=== PATIENT | female | born 1940 | race Caucasian/White ===

== ENCOUNTER 2023-06-29 15:59 | Inpatient (IN) | payer OTHER, SELFPAY ==
[2023-06-29 16:47] VITALS: BP 123/69; PULSE 93; RESP 18; TEMP 37; O2SAT 90; BMI 18.8
[2023-06-29 17:37] VITALS: O2SAT 84
[2023-06-29 17:41] LABS: PCR FLU A POSITIVE PCR FLU A (Negative); PCR FLU B Negative PCR FLU B (Negative); PCR RSV Negative PCR RSV (Negative)
[2023-06-29 17:45] VITALS: O2SAT 95
--- NOTE | 2023-06-29 17:45 | CRLHL7_ITS ---
For Patients: As a result of the Cures Act, medical imaging exams and procedure reports are released immediately into your electronic medical record. You may view this report before your referring provider. If you have questions, please contact your health care provider. INDICATION: Shortness of breath TECHNIQUE: Chest 2 views. COMPARISON: None FINDINGS: The heart is normal in size. The pulmonary vasculature is within normal limits. Patchy opacity in the right lung base, suggestive of pneumonia in the appropriate clinical setting. Remainder of the lungs clear. Bones are unremarkable. IMPRESSION: Patchy right lower lobe consolidation, suggestive of pneumonia. Recommend follow-up after treatment to ensure resolution. Dictated by Marlyn Norton MD @ 06/29/2023 6:43:50 PM Dictated by: Marlyn Norton MD @ 06/29/2023 18:43:59 (Electronically Signed)
--- NOTE | 2023-06-29 17:52 | ED.GENADULT ---
HPI - General Adult General Chief complaint: Nausea/Vomiting Stated complaint: nausea Time Seen by Provider: 06/29/23 17:09 Source: patient Mode of arrival: ambulatory Limitations: no limitations History of Present Illness HPI narrative: 83-year-old female coming in today complaining about not feeling well for 1 week. Patient states that she has had a cough, weakness, nausea, diarrhea for 1 week. Denies any vomiting but has had no oral intake of food for the last week secondary to the nausea. States that she has been drinking water and that has been okay. States that she has several episodes of diarrhea per day but cannot be more specific than that. Denies any blood in her stool. Denies abdominal or chest pain. Cough is productive. No fevers that she is aware of. She does feel short of breath. Past medical history is significant for hypertension, history of PE, hyperlipidemia, hiatal hernia, osteopenia, mild persistent asthma, stage 3 chronic kidney disease, history of pleural empyema. Past surgical history includes a total abdominal hysterectomy and oophorectomy, a right VATS and lung decortication in 2018. She does not use oxygen at home. Current medications include albuterol nebs, Ventolin inhaler, Fosamax, Symbicort, calcium, chlorthalidone, estradiol, daily iron, Toprol XL, Singulair, Xarelto. Related Data Home Medications Medication Instructions Recorded Confirmed alendronate 70 mg tablet 70 mg PO 06/29/23 chlorthalidone 25 mg tablet 25 mg PO DAILY 06/29/23 06/29/23 montelukast 10 mg tablet 10 mg PO DAILY 06/29/23 06/29/23 Allergies Allergy/AdvReac Type Severity Reaction Status Date / Time No Known Drug Allergies Allergy Verified 06/29/23 16:51 Review of Systems Status of ROS: Reports: 10 or more systems reviewed and unremarkable except as noted in History and below [facility] Social History Non-prescribed substance use: denies use Exam Narrative: Exam Narrative: Thin, elderlypatient in no acute distress. Alert and oriented x3. Answers questions appropriately but slowly. patient appears quite tired.Mood and affect are appropriate. Thoughts are goal oriented and rational. No tangential or magical thinking noted. Patient speaks in full sentences without needing to catch Her breath. she is not tachypneic, however she is hypoxic. Oxygen saturation does go up into the low to mid 90s on 2 L nasal cannula. HEENT: Normocephalic atraumatic. Pupils are equally round reactive to light. Extraocular muscles are intact. Conjunctivae are moist without any icterus noted. Slightly dry mucous membranes. Posterior pharynx is normal. Neck is soft without any lymphadenopathy or thyromegaly. No masses are appreciated. Cardiovascular: Heart is regular rate and rhythm S1 and S2 are present without any murmurs. Lungs: bilateral crackles and rales. No wheezing is appreciated. Abdomen: Soft and nontender nondistended with normal bowel sounds. Extremities: Bilateral lower extremities are without edema. Normal DP and PT pulses. Skin: Well perfused without any obvious rashes. Const: Vital Signs, click to edit/add: Vital Signs - 24 hr 06/29/23 16:47 06/29/23 17:37 06/29/23 17:45 Temperature 98.6 F Pulse Rate [Pulse Oximeter] 93 Respiratory Rate 18 Blood Pressure [Ri ght Upper Arm] 123/69 Pulse Oximetry 90 84 L 95 Oxygen Delivery Me thod Room Air Room Air Oxygen Flow Rate 06/29/23 19:12 06/29/23 19:12 Temperature Pulse Rate [Pulse Oximeter] 90 Respiratory Rate 20 Blood Pressure [Ri ght Upper Arm] 148/96 H Pulse Oximetry 96 96 Oxygen Delivery Me thod Nasal Cannula Oxygen Flow Rate 2 Course Course ED Course: Patient was placed on oxygen. IV was established and fluids started: 1 L of normal saline was ordered. EKG, read by me, shows normal sinus rhythm with a pulse of 86. Is not a great quality EKG. Lab work shows hyponatremia, elevated BUN and creatinine. I do not have a baseline for these labs. Patient is positive for influenza A. Chest x-ray is noted to have a right-sided consolidation. However, patient does have a history of empyema and it is difficult to tell if this is scarring or new. Vital Signs Vital signs: Initial Vital Signs Temperature 98.6 F 06/29/23 16:47 Temperature Source Temporal Artery Scan 06/29/23 16:47 Pulse Rate 93 06/29/23 16:47 Respiratory Rate 18 06/29/23 16:47 Blood Pressure 123/69 06/29/23 16:47 Blood Pressure Mean 87 06/29/23 16:47 Pulse Oximetry 90 06/29/23 16:47 Oxygen Delivery Method Room Air 06/29/23 16:47 Vital Signs Temperature 98.6 F 06/29/23 16:47 Pulse Rate 93 06/29/23 16:47 Respiratory Rate 18 06/29/23 16:47 Blood Pressure 123/69 06/29/23 16:47 Pulse Oximetry 90 06/29/23 16:47 Oxygen Delivery Method Room Air 06/29/23 16:47 Temperature 98.6 F 06/29/23 16:47 Pulse Rate 90 06/29/23 19:12 Respiratory Rate 20 06/29/23 19:12 Blood Pressure 148/96 H 06/29/23 19:12 Pulse Oximetry 96 06/29/23 19:12 Oxygen Delivery Method Nasal Cannula 06/29/23 19:12 Oxygen Flow Rate 2 06/29/23 19:12 Medications Administered Medications: Discontinued Medications Generic Name Dose Route Start Last Admin Trade Name Freq PRN Reason Stop Dose Admin Sodium Chloride 1,000 mls @ 1,000 mls/hr 06/29/23 17:45 06/29/23 18:31 0.9 % Sodium Chloride 1000 Ml IV 06/29/23 18:44 1,000 mls/hr .Q1H PRIYA Administration Ondansetron HCl 4 mg 06/29/23 17:45 06/29/23 18:31 Ondansetron 2 Mg/Ml Inj IVP 06/29/23 17:46 4 mg ONCE ONE Administration Medical Decision Making MDM Narrative Medical decision making narrative: 83-year-old female with influenza a, hypoxia, hyponatremia, renal failure. At this time, patient will be admitted for further management. Medical Records Medical records reviewed: Yes I reviewed the patient's medical records Lab Data Lab results reviewed: Yes I reviewed the patient's lab results Labs: Lab Results 06/29/23 06/29/23 Range/Units 16:52 18:20 WBC 9.07 (4.50-11.00) K/uL RBC 4.28 (4.00-5.20) m/uL Hgb 13.2 (12.0-16.0) gm/dL Hct 41.2 (33.0-51.0) % MCV 96 (80-100) fL MCH 31 (26-34) pg MCHC 32 (32-36) gm/dL RDW Coeff of Leonardo 12.6 (11.5-15.5) % Plt Count 214 (140-440) K/uL Neut % (Auto) 84.4 H (42.0-72.0) % Lymph % (Auto) 4.6 L (20-44) % [place] % (Auto) 10.8 (0.0-11.0) % Eos % (Auto) 0.0 (0.0-7.0) % Baso % (Auto) 0.0 (0.0-3.0) % Neut # (Auto) 7.70 H (1.7-7.0) K/uL Lymph # (Auto) 0.40 L (0.90-2.90) K/uL [place] # (Auto) 1.00 H (0.00-0.90) K/UL Eos # (Auto) 0.00 (0.00-0.50) K/uL Baso # (Auto) 0.00 (0.00-0.30) K/uL Abs Immat Gran (auto) 0.02 (0.00-0.30) K/uL Imm/Tot Granulo (auto) 0.2 % Sodium 130 L (135-149) mmol/L Potassium 3.6 (3.6-5.1) mmol/L Chloride 91 L (96-114) mmol/L Carbon Dioxide 22 (20-32) mmol/L Anion Gap 17 H (7-15) mEq/L BUN 39 H (7-30) mg/dL Creatinine 1.6 H (0.5-1.5) mg/dL Estimated Creat Clear 22.89 Estimated GFR 32 ml/min Glucose 147 H (60-115) mg/dL Lactate 1.8 (0.5-1.9) mmol/L Calcium 7.9 L (8.4-10.6) mg/dL Total Bilirubin 0.4 (0.1-1.5) mg/dL Direct Bilirubin 0.3 (0.0-0.5) mg/dL AST 48 H (12-35) U/L ALT 20 (4-35) U/L Alkaline Phosphatase 59 (40-150) U/L Troponin I 0.05 H (0.01-0.04) ng/mL C-Reactive Protein 19.7 H (0.5-1.0) mg/dL Total Protein 7.8 (6.0-8.3) g/dL Albumin 4.2 (3.3-5.0) g/dL SARS-CoV-2 (PCR) Negative SARS-CoV-2 (Negative) Influenza Type A (PCR) POSITIVE PCR FLU A A (Negative) Influenza Type B (PCR) Negative PCR FLU B (Negative) RSV (PCR) Negative PCR RSV (Negative) POC Troponin I 0.04 (0.01-0.04) ng/ml Imaging Data Chest x-ray: Attestation: I have reviewed the pertinent imaging results. Radiologist's impression: Chest 2 views. COMPARISON: None FINDINGS: The heart is normal in size. The pulmonary vasculature is within normal limits. Patchy opacity in the right lung base, suggestive of pneumonia in the appropriate clinical setting. Remainder of the lungs clear. Bones are unremarkable. IMPRESSION: Patchy right lower lobe consolidation, suggestive of pneumonia. Recommend follow-up after treatment to ensure resolution. ECG Data Attestation: I personally reviewed and interpreted this ECG as follows: Discharge Plan Discharge Clinical Impression: Influenza A, Hyponatremia, Hypoxia Patient Disposition: Admitted As Observation Condition: Stable
[2023-06-29 17:58] LABS: SARS PCR* Negative SARS-CoV-2 (Negative)
[2023-06-29 18:26] LABS: Lactate* 1.8 mmol/L (0.5-1.9)
[2023-06-29 18:27] LABS: Hematocrit 41.2 % (33.0-51.0); Hemoglobin* 13.2 gm/dL (12.0-16.0); Immature Granulocytes Abs Auto 0.02 K/uL (0.00-0.30); Immature Granulocytes Pct Auto 0.2 %; Lymphocytes Percent Auto 4.6 % (20-44); Mean Corpuscular HGB Conc 32 gm/dL (32-36); Mean Corpuscular Hemoglobin 31 pg (26-34); Mean Corpuscular Volume 96 fL (80-100); Monocytes Percent Auto 10.8 % (0.0-11.0); Neutrophils Percent Auto 84.4 % (42.0-72.0); Platelet Count* 214 K/uL (140-440); RDW Coefficient of Variation % 12.6 % (11.5-15.5); Red Blood Count 4.28 m/uL (4.00-5.20); White Blood Count* 9.07 K/uL (4.50-11.00)
[2023-06-29 18:28] LABS: Slide Review Reflex No
[2023-06-29] MEDS: 0.9 % SODIUM CHLORIDE 1000 ml 1,000 ML IV (18:31)
[2023-06-29] MEDS: ONDANSETRON 2 MG/ML inj 4 MG IVP (18:31)
[2023-06-29 18:32] LABS: Troponin, Point-of-Care* 0.04 ng/ml (0.01-0.04)
--- OUTSIDE RECORDS SUMMARY | 2023-06-29 18:37 | XMS_ITS | Continuity of Care Document ---
Author Name Unknown Organization [facility] Address [address] [place] [address] Phone Care Team Providers Care Contract Coordinator Name Role Phone Dinah Euceda Unavailable Unavailable Allergies, Adverse Reactions, Alerts Substance Reaction Status Criticality oxycodone Active No Information Procedures Procedure Date Office/Outpatient Visit,[facility], [facility] 2021 Advance Directives Directive Yes / No Effective Date File Name No Information Encounters Encounter Description Practice Location Reason(s) For Visit Diagnoses Date Provider Providers Copied on Encounter Office/Outpati ent Visit,[place], [facility] , [address], [place], [place], [id number], [place] tel:[phone] [facility] Other spondylosis , lumbar region Zuly Nix. [facility], [address] [place] [address] [address], [place], [address], [place]. tel:[phone] Referring Provider: Dinah Garcia, [employer] [facility] [address], [place], [address]. tel:[phone] Family History Family Member Type Diagnosis Age At Onset No Information Payers Payer name Insurance type Covered republican ID Mainor vaughan(s) [employer]age [id number] Social History Type Description Quantity Date Captured Comments Alcohol Use Details Unknown Caffeine Use Details Unknown Tobacco Use Status Current non-smoker Smoking Status Never smoker Non-Smoking Tobacco Use Details : No Details Available : No Details Available Sex Female Vital Signs Date / Time: Height Weight BMI Pulse Rate Blood Pressure Temperature Respiratory Rate Body Surface Area Head Circumference Head Circ. Percentile Wt./Jeramy. Percentile BMI percentile Pulse Ox Inhaled Ox 11:15 AM 64.00 in 55.338 kg (122.00 lbs) 20.9 4 kg/m eter (2) Chief Complaint And Reason For Visit No Information Reason For Referral Reason For Referral No Information History Of Present Illness Encounter Date Complaint History Of Prese nt Illness No Information Functional Status Date Functional Assessmen t No Information Instructions Date Instruction Additional Infor mation No Information Assessments Type Assessment Date assessment Other spondylosis, lumbar region Patient Care Teams Name Effective Dates (start - stop) Status Members No Information
--- OUTSIDE RECORDS SUMMARY | 2023-06-29 18:37 | XMS_ITS | Continuity of Care Document ---
Author Name Unknown Organization [facility] Address [address] [place] [address] Phone Care Team Providers Care Autocad Designer Name Role Phone Dinah Euceda Unavailable Unavailable Allergies, Adverse Reactions, Alerts Substance Reaction Status Criticality oxycodone Active No Information Procedures Procedure Date Office/Outpatient Visit,[facility], [facility] 2021 Advance Directives Directive Yes / No Effective Date File Name No Information Encounters Encounter Description Practice Location Reason(s) For Visit Diagnoses Date Provider Providers Copied on Encounter Office/Outpati ent Visit,[place], [place] [facility] , [address], [place], [place], [id number], [place] tel:[phone] [facility] Other spondylosis , lumbar region Zuly Nix. [facility], [address] [place] [address] [address], [place], [address], [place]. tel:[phone] Referring Provider: Dinah Garcia, [employer] [facility] [address], [place], [address]. tel:[phone] Family History Family Member Type Diagnosis Age At Onset No Information Payers Payer name Insurance type Covered republican ID Mainor vaughan(s) [employer] Advantage [id number] Social History Type Description Quantity Date Captured [...]
[2023-06-29 18:47] LABS: Albumin* 4.2 g/dL (3.3-5.0); Chloride* 91 mmol/L (96-114); Sodium* 130 mmol/L (135-149)
[2023-06-29 18:48] LABS: Potassium* 3.6 mmol/L (3.6-5.1)
[2023-06-29 18:50] LABS: Alkaline Phosphatase* 59 U/L (40-150); Anion Gap 17 mEq/L (7-15); Aspartate Amino Transferase* 48 U/L (12-35); Bilirubin Direct* 0.3 mg/dL (0.0-0.5); Bilirubin Total* 0.4 mg/dL (0.1-1.5); Carbon Dioxide* 22 mmol/L (20-32); Creatinine* 1.6 mg/dL (0.5-1.5); Est. Creatinine Clearance* 22.89; Estimated Glomerular Filt Rate 32 ml/min
[2023-06-29 18:51] LABS: Alanine Aminotransferase* 20 U/L (4-35); Blood Urea Nitrogen* 39 mg/dL (7-30); Calcium* 7.9 mg/dL (8.4-10.6); Glucose* 147 mg/dL (60-115); Total Protein* 7.8 g/dL (6.0-8.3)
[2023-06-29 19:02] LABS: Troponin I* 0.05 ng/mL (0.01-0.04)
[2023-06-29 19:05] LABS: C Reactive Protein* 19.7 mg/dL (0.5-1.0)
[2023-06-29 19:12] VITALS: BP 148/96; PULSE 90; RESP 20; O2SAT 96
[2023-06-29] MEDS: OSELTAMIVIR PHOSPHATE 75 MG CAPSULE PO (19:15)
--- NOTE | 2023-06-29 19:35 | PC.NURSE ---
[facility]
--- NOTE | 2023-06-29 19:48 | PC.NURSE ---
patient brought to medsurg room 260 by house sup, all belongings sent with patient
--- NOTE | 2023-06-29 21:23 | P.IMHP_ITS ---
Hospitalist- H&P: HPI History of Present Illness Date Seen: 06/29/23 Chief complaint: nausea Narrative: Charleen Marquez is a 83 year old woman ordinarily in good health. For the past week she has had dry hacky cough, weakness, nausea without vomiting, intermittent diarrhea. Has had little oral solid intake. Has been drinking a fair amount of water to try to maintain her hydration. Denies fevers, rigors, diaphoresis. Has been more short of breath. Denies chest heaviness, pressure, tightness, or pain. Ordinarily does not use oxygen supplementation at home. No syncope or near syncope. No loss of consciousness. Acknowledges a sense of orthostasis at times. Review of Systems Status of ROS: Reports: 10 or more systems reviewed and unremarkable except as noted in History and below Narrative: Takes her medications as prescribed. Designates her , Bin, as her power of compliance attorney for health should that be required. Requests DNR DNI resuscitation status. She tells me that she knows her does not agree with this but this is her decision. I tell her she can change her mind any time. She remains resolute. She understands my asking her this question is purely hypothetical, because she is in the hospital at this time. [facility] Medical History Dehiscence of appendectomy wound ?T81.31XA - Disruption of external operation (surgical) wound, not elsewhere classified, initial encounter (ICD-10) Hiatal hernia ?K44.9 - Diaphragmatic hernia without obstruction or gangrene (ICD-10) Bronchiectasis without complication ?J47.9 - Bronchiectasis, uncomplicated (ICD-10) Chronic kidney disease, stage 3b ?N18.32 - Chronic kidney disease, stage 3b (ICD-10) Single subsegmental pulmonary embolism without acute cor pulmonale ?I26.93 - Single subsegmental pulmonary embolism without acute cor pulmonale (ICD-10) History of pleural empyema ?Z87.09 - Personal history of other diseases of the respiratory system (ICD- 10) Mild persistent asthma without complication ?J45.30 - Mild persistent asthma, uncomplicated (ICD-10) Hyperlipidemia ?E78.5 - Hyperlipidemia, unspecified (ICD-10) Hypertension ?I10 - Essential (primary) hypertension (ICD-10) Surgical History History of left oophorectomy ?Z90.721 - Acquired absence of ovaries, unilateral (ICD-10) S/P total abdominal hysterectomy ?Z90.710 - Acquired absence of both cervix and uterus (ICD-10) History of right oophorectomy ?Z90.721 - Acquired absence of ovaries, unilateral (ICD-10) History of esophagogastroduodenoscopy ?Z98.890 - Other specified postprocedural states (ICD-10) Family History Maternal Grandmother Heart disease Mother Heart disease Social History Non-prescribed substance use: denies use Meds Home Medications and Allergies Home Medications Medication Instructions Recorded Confirmed Type alendronate 70 mg tablet 70 mg PO 06/29/23 History chlorthalidone 25 mg tablet 25 mg PO DAILY 06/29/23 06/29/23 History montelukast 10 mg tablet 10 mg PO DAILY 06/29/23 06/29/23 History Allergies Allergy/AdvReac Type Severity Reaction Status Date / Time No Known Drug Allergies Allergy Verified 06/29/23 16:51 Exam Narrative: Exam Narrative: Examined patient in her hospital room. Appears comfortable. Intermittent dry hacky cough, nonproductive. Vision and hearing are grossly normal. Alert, oriented to self, place, time, situation. From the, articulate, cooperative. Has obvious laryngitis affecting her voice. Tympanic membranes normal. Midline nasal septum. Dry buccal mucosa. Dentition in fair repair. Midline trachea. Supple neck. No head or neck lymphadenopathy. Lungs are clear without wheezing, rhonchi, or rales. Heart tones with regular rhythm, normal S1-S2. Abdomen is thin with active bowel sounds, soft, nontender. Extremities without edema. Moves all 4 extremities. Cranial nerves 3-12 grossly normal. Skin is warm, dry, intact. Const: Vital Signs, click to edit/add: Vital Signs - 24 hr 06/29/23 16:47 06/29/23 17:37 06/29/23 17:45 Temperature 98.6 F Pulse Rate [Pulse Oximeter] 93 Respiratory Rate 18 Blood Pressure [Ri ght Upper Arm] 123/69 Pulse Oximetry 90 84 L 95 Oxygen Delivery Me thod Room Air Room Air Oxygen Flow Rate 06/29/23 19:12 06/29/23 19:12 Temperature Pulse Rate [Pulse Oximeter] 90 Respiratory Rate 20 Blood Pressure [Ri ght Upper Arm] 148/96 H Pulse Oximetry 96 96 Oxygen Delivery Me thod Nasal Cannula Oxygen Flow Rate 2 Documenting provider has reviewed patient's vital signs: yes Hospitalist - H&P: Result Labs Labs: Short CBC 06/29/23 Range/Units 18:20 WBC 9.07 (4.50-11.00) K/uL Hgb 13.2 (12.0-16.0) gm/dL Hct 41.2 (33.0-51.0) % Plt Count 214 (140-440) K/uL BMP 06/29/23 18:20 Sodium 130 L Potassium 3.6 Chloride 91 L Carbon Dioxide 22 BUN 39 H Creatinine 1.6 H Glucose 147 H Calcium 7.9 L Cardiac Enzymes 06/29/23 Range/Units 18:20 Troponin I 0.05 H (0.01-0.04) ng/mL Liver Function 06/29/23 Range/Units 18:20 Total Bilirubin 0.4 (0.1-1.5) mg/dL Direct Bilirubin 0.3 (0.0-0.5) mg/dL AST 48 H (12-35) U/L ALT 20 (4-35) U/L Alkaline Phosphatase 59 (40-150) U/L Albumin 4.2 (3.3-5.0) g/dL ECG Attestation: I personally reviewed and interpreted this ECG as follows: ECG interpretation date: 06/29/23 Interpretation: Normal sinus rhythm. Artifact noted. Imaging Chest x-ray: Attestation: I have reviewed the pertinent imaging results. Radiologist's impression: IMPRESSION: Patchy right lower lobe consolidation, suggestive of pneumonia. Recommend follow-up after treatment to ensure resolution. Assessment and Plan Assessment and plan (1) Influenza A: Problem comment: -oseltamivir dosed for decreased renal function Status: Acute (2) Hyponatremia: Problem comment: -2000 mL fluid restriction Status: Acute (3) Hypoxia: Problem comment: -oxygen supplementation Status: Acute (4) Dehydration: Problem comment: -IV fluid rehydration Status: Acute (5) Acute kidney injury: Problem comment: -suspect from dehydration, monitor labs Status: Acute Plan 1. Reviewed impression with patient 2. Answered her questions 3. Treatment as specified above 4. Continue with supportive efforts 5. Patient agreeable with above stated plans and recommendations
[2023-06-29 21:50] LABS: Troponin I* 0.05 ng/mL (0.01-0.04)
[2023-06-29 23:00] VITALS: RESP 20; O2SAT 96
[2023-06-29 23:12] VITALS: BP 148/62; PULSE 79; RESP 20; TEMP 36.8; O2SAT 93; BMI 18.1
[2023-06-29] MEDS: SODIUM CHLORIDE 0.9 % (FLUSH) 10 ML SYRINGE 5 ML IVF (23:42)
[2023-06-30] VITALS (7 sets, daily range): BP systolic 107–148; BP diastolic 62–70; PULSE 67–80; RESP 16–18; TEMP 36.4–37.9; O2SAT 90–96
[2023-06-30] MEDS: ACETAMINOPHEN 325 MG TABLET 650 MG PO ×4 (01:02→22:07)
[2023-06-30 07:07] LABS: Hemoglobin* 12.8 gm/dL (12.0-16.0); Mean Corpuscular HGB Conc 32 gm/dL (32-36); Mean Corpuscular Hemoglobin 31 pg (26-34); Mean Corpuscular Volume 96 fL (80-100); Platelet Count* 198 K/uL (140-440); Red Blood Count 4.15 m/uL (4.00-5.20); White Blood Count* 6.97 K/uL (4.50-11.00)
[2023-06-30 07:19] LABS: HCO3 VBG 30 mmol/L (21-28); PCO2 VBG 50 mmHG (40-50); PO2 VBG 29.7 mmHG (25-47); pH VBG 7.383 (7.32-7.43)
[2023-06-30 07:27] LABS: Slide Review Reflex No
[2023-06-30 07:51] LABS: Chloride* 95 mmol/L (96-114); Potassium* 3.7 mmol/L (3.6-5.1); Sodium* 132 mmol/L (135-149)
[2023-06-30 07:54] LABS: Anion Gap 10 mEq/L (7-15); Carbon Dioxide* 27 mmol/L (20-32); Creatinine* 1.3 mg/dL (0.5-1.5); Est. Creatinine Clearance* 27.14; Estimated Glomerular Filt Rate 41 ml/min
[2023-06-30 07:55] LABS: Blood Urea Nitrogen* 39 mg/dL (7-30); Calcium* 7.5 mg/dL (8.4-10.6); Glucose* 91 mg/dL (60-115); Magnesium* 1.9 mg/dL (1.5-2.6); Phosphorus* 2.8 mg/dL (2.5-4.5)
[2023-06-30 08:06] LABS: Troponin I* 0.04 ng/mL (0.01-0.04)
[2023-06-30 08:08] LABS: C Reactive Protein* 19.4 mg/dL (0.5-1.0); NT Pro B Type NatriureticPept* 1360 pg/mL
--- NOTE | 2023-06-30 08:09 | PC.NURSE ---
Pt alert and oriented x3. Afebrile. Pt reports 5/10 headache pain, managed with PRN medications. Pt has continuous moist non-productive cough. Pt is on 1L oxygen via nasal cannula to maintain stats of 90%. Pt is up A1/SBA to bathroom. Pt slept throughout most of night.
[2023-06-30] MEDS: MONTELUKAST 10 MG TABLET PO (09:41)
[2023-06-30] MEDS: OSELTAMIVIR 30 MG CAPSULE PO (09:41)
[2023-06-30] MEDS: SODIUM CHLORIDE 0.9 % (FLUSH) 10 ML SYRINGE 5 ML IVF ×2 (09:42→22:01)
[2023-06-30] MEDS: LIDOCAINE 5% PATCH 1 PATCH TRANSDERMA (11:34)
[2023-06-30] MEDS: hydrOXYzine pamoate 25 MG CAPSULE PO ×2 (12:50→22:04)
--- NOTE | 2023-06-30 14:48 | P.IMPN_ITS ---
Progress Note: A&P Assessment and plan (1) Influenza A: Problem details: -oseltamivir dosed for decreased renal function -schedule Tylenol for aches and pains, lidocaine patch for right hip pain, Vistaril p.r.n., ice and/or heat p.r.n. Status: Acute (2) Hyponatremia: Problem details: -slowly improving, 132 -2000 mL fluid restriction Status: Acute (3) Hypoxia: Problem details: -oxygen supplementation as needed, continue to wean as able Status: Acute (4) Dehydration: Problem details: -IV fluid rehydration. Continue until improved oral intake Status: Acute (5) Acute kidney injury: Problem details: -suspect from dehydration -improving, 1.3, down from 1.6, continue to monitor Status: Acute Time Spent With Patient Total time spent: Total time spent caring for the patient today was 45 minutes. This includes time spent for the visit reviewing the chart, time spent during the visit, time spent after the visit and documentation and planning in coordination of care. Subjective Date Seen: 06/30/23 Interval history: Patient is very uncomfortable this morning, achy all over, right hip most significantly sore. In general, malaise. Continues with fevers. Poor appetite. Was not vaccinated. Exam Narrative: Exam Narrative: PHYSICAL EXAM General: Patient moaning, rubbing right hip, quite anxious Cardiovascular: RRR, S1S2. No pitting edema Pulmonary: CTA bilaterally without rhonchi, rales, expiratory wheezes. No dyspnea on nasal cannula Neurological: Alert, anxious, answering questions appropriately Extremities: No gross joint deformity or swelling. AROMI. Neurovascularly intact Skin: Warm, dry. Const: Vital Signs, click to edit/add: Vital Signs - 24 hr 06/29/23 16:47 06/29/23 17:37 06/29/23 17:45 Temperature 98.6 F Pulse Rate [Pulse Oximeter] 93 Respiratory Rate 18 Blood Pressure [Ri ght Arm] Blood Pressure [Ri ght Upper Arm] 123/69 Pulse Oximetry 90 84 L 95 Oxygen Delivery Me thod Room Air Room Air Oxygen Flow Rate 06/29/23 19:12 06/29/23 19:12 06/29/23 23:00 Temperature Pulse Rate [Pulse Oximeter] 90 Respiratory Rate 20 20 Blood Pressure [Ri ght Arm] Blood Pressure [Ri ght Upper Arm] 148/96 H Pulse Oximetry 96 96 96 Oxygen Delivery Me thod Nasal Cannula Nasal Cannula Oxygen Flow Rate 2 2 06/29/23 23:12 06/29/23 23:12 06/30/23 00:25 Temperature 98.3 F 98.6 F Pulse Rate [Pulse Oximeter] 79 72 Respiratory Rate 20 20 18 Blood Pressure [Ri ght Arm] 148/62 H 107/62 Blood Pressure [Ri ght Upper Arm] Pulse Oximetry 93 93 93 Oxygen Delivery Me thod Nasal Cannula Nasal Cannula Nasal Cannula Oxygen Flow Rate 2 1 1 06/30/23 03:40 06/30/23 07:00 06/30/23 07:00 Temperature 97.6 F Pulse Rate [Pulse Oximeter] 71 78 Respiratory Rate 18 18 18 Blood Pressure [Ri ght Arm] 121/65 Blood Pressure [Ri ght Upper Arm] Pulse Oximetry 92 90 Oxygen Delivery Me thod Nasal Cannula Nasal Cannula Oxygen Flow Rate 1 2 06/30/23 07:00 06/30/23 09:41 06/30/23 11:00 Temperature 100.2 F H 100.2 F H 98.5 F Pulse Rate [Pulse Oximeter] 78 72 Respiratory Rate 18 18 Blood Pressure [Ri ght Arm] 145/65 H 132/63 Blood Pressure [Ri ght Upper Arm] Pulse Oximetry 90 94 Oxygen Delivery Me thod Nasal Cannula Nasal Cannula Oxygen Flow Rate 2 2 Labs Labs: Laboratory Results - last 24 hr 06/29/23 06/29/23 06/29/23 16:52 18:20 21:16 WBC 9.07 RBC 4.28 Hgb 13.2 Hct 41.2 MCV 96 MCH 31 MCHC 32 RDW Coeff of Leonardo 12.6 Plt Count 214 Neut % (Auto) 84.4 H Lymph % (Auto) 4.6 L [place] % (Auto) 10.8 Eos % (Auto) 0.0 Baso % (Auto) 0.0 Neut # (Auto) 7.70 H Lymph # (Auto) 0.40 L [place] # (Auto) 1.00 H Eos # (Auto) 0.00 Baso # (Auto) 0.00 Abs Immat Gran (auto) 0.02 Imm/Tot Granulo (auto) 0.2 VBG pH VBG pCO2 VBG pO2 VBG HCO3 Sodium 130 L Potassium 3.6 Chloride 91 L Carbon Dioxide 22 Anion Gap 17 H BUN 39 H Creatinine 1.6 H Estimated Creat Clear 22.89 Estimated GFR 32 Glucose 147 H Lactate 1.8 Calcium 7.9 L Phosphorus Magnesium Total Bilirubin 0.4 Direct Bilirubin 0.3 AST 48 H ALT 20 Alkaline Phosphatase 59 Troponin I 0.05 H 0.05 H C-Reactive Protein 19.7 H NT-Pro-B Natriuret Pep Total Protein 7.8 Albumin 4.2 SARS-CoV-2 (PCR) Negative SARS-CoV-2 Influenza Type A (PCR) POSITIVE PCR FLU A A Influenza Type B (PCR) Negative PCR FLU B RSV (PCR) Negative PCR RSV POC Troponin I 0.04 06/30/23 06:33 WBC 6.97 RBC 4.15 Hgb 12.8 Hct 40.0 MCV 96 MCH 31 MCHC 32 RDW Coeff of Leonardo Plt Count 198 Neut % (Auto) Lymph % (Auto) [place] % (Auto) Eos % (Auto) Baso % (Auto) Neut # (Auto) Lymph # (Auto) [place] # (Auto) Eos # (Auto) Baso # (Auto) Abs Immat Gran (auto) Imm/Tot Granulo (auto) VBG pH 7.383 VBG pCO2 50 VBG pO2 29.7 VBG HCO3 30 H Sodium 132 L Potassium 3.7 Chloride 95 L Carbon Dioxide 27 Anion Gap 10 BUN 39 H Creatinine 1.3 Estimated Creat Clear 27.14 Estimated GFR 41 Glucose 91 Lactate 1.0 Calcium 7.5 L Phosphorus 2.8 Magnesium 1.9 Total Bilirubin Direct Bilirubin AST ALT Alkaline Phosphatase Troponin I 0.04 C-Reactive Protein 19.4 H NT-Pro-B Natriuret Pep 1360 Total Protein Albumin SARS-CoV-2 (PCR) Influenza Type A (PCR) Influenza Type B (PCR) RSV (PCR) POC Troponin I
--- NOTE | 2023-06-30 15:01 | CRLHL7_ITS ---
For Patients: As a result of the Cures Act, medical imaging exams and procedure reports are released immediately into your electronic medical record. You may view this report before your referring provider. If you have questions, please contact your health care provider. Indication: nontraumatic right hip pain, no known fall Technique: Pelvis and right hip 3 views Comparison: None Findings: The right proximal femur is intact. No femoral neck fracture. Intact pubic rami. Degenerative changes lower lumbar spine. Impression: No fracture or suspicious findings. Dictated by Víctor Abraham MD @ 07/01/2023 6:44:40 AM (Electronically Signed)
[2023-06-30] MEDS: OXYCODONE 5 MG TABLET 2.5 MG PO ×2 (16:14→22:03)
--- NOTE | 2023-06-30 18:11 | PC.NURSE ---
End of shift [id number]: Pt A&O x4. VSS with exception to fever this morning, T-max 100.2 & resolved with PRN Tylenol. Pt required Ax2 to bedside commode today and very unsteady on her feet d/t severe right hip and lower back pain. Tylenol was scheduled, lidocaine patch added and applied to right hip, PRN Hydroxyzine q4H added & given x1 dose and PRN oxycodone q6H added & given x1 dose. XR right hip done r/t increased pain. O2 requirements 1L to 2L today to maintain > 90%. Moist, non-productive cough. No appetite d/t illness- pt was able to eat applesauce today, continuing to encourage fluids & protein while following 2000 mL fluid restriction. 20G in right wrist SL and C/D/I. Family has been in/out visiting. ?
[2023-07-01] VITALS (9 sets, daily range): BP systolic 117–144; BP diastolic 66–76; PULSE 72–90; RESP 16–22; TEMP 36.6–37.6; O2SAT 86–94; BMI 17.9
[2023-07-01] MEDS: ACETAMINOPHEN 325 MG TABLET 650 MG PO ×4 (04:22→22:58)
--- NOTE | 2023-07-01 08:07 | PC.NURSE ---
Pt alert and oriented to time and person. Pt thought she was at [facility]. Pt also could not recall family being there earlier in the day. Pt reports 8/10 pain in right hip, managed with PRN and scheduled medications. Pt is up A1 with walker gait belt to commode. Pt slept throughout most of night.
[2023-07-01] MEDS: OSELTAMIVIR 30 MG CAPSULE PO (08:53)
[2023-07-01] MEDS: MONTELUKAST 10 MG TABLET PO (08:53)
[2023-07-01] MEDS: OXYCODONE 5 MG TABLET 2.5 MG PO (08:53)
[2023-07-01] MEDS: SODIUM CHLORIDE 0.9 % (FLUSH) 10 ML SYRINGE 5 ML IVF ×2 (08:59→22:59)
[2023-07-01 09:21] LABS: Basophils Absolute Auto 0.01 K/uL (0.00-0.30); Basophils Percent Auto 0.1 % (0.0-3.0); Hematocrit 41.8 % (33.0-51.0); Hemoglobin* 13.2 gm/dL (12.0-16.0); Immature Granulocytes Abs Auto 0.03 K/uL (0.00-0.30); Immature Granulocytes Pct Auto 0.4 %; Lymphocytes Percent Auto 9.1 % (20-44); Mean Corpuscular HGB Conc 32 gm/dL (32-36); Mean Corpuscular Hemoglobin 31 pg (26-34); Mean Corpuscular Volume 97 fL (80-100); Monocytes Percent Auto 8.9 % (0.0-11.0); Neutrophils Percent Auto 81.5 % (42.0-72.0); Platelet Count* 183 K/uL (140-440); RDW Coefficient of Variation % 12.6 % (11.5-15.5); Red Blood Count 4.31 m/uL (4.00-5.20); White Blood Count* 8.43 K/uL (4.50-11.00)
[2023-07-01 09:35] LABS: Chloride* 94 mmol/L (96-114); Potassium* 3.6 mmol/L (3.6-5.1); Sodium* 133 mmol/L (135-149)
[2023-07-01 09:38] LABS: Anion Gap 11 mEq/L (7-15); Blood Urea Nitrogen* 32 mg/dL (7-30); Carbon Dioxide* 28 mmol/L (20-32); Creatinine* 1.2 mg/dL (0.5-1.5); Est. Creatinine Clearance* 29.04; Estimated Glomerular Filt Rate 45 ml/min; Glucose* 89 mg/dL (60-115)
[2023-07-01 09:43] LABS: Slide Review Reflex No
[2023-07-01] MEDS: LIDOCAINE 5% PATCH 1 PATCH TRANSDERMA (10:55)
--- NOTE | 2023-07-01 14:32 | PC.NURSE ---
End of shift [id number]: Pt A&O x4, afebrile and ambulatory today. Pt ambulated to commode and up to recliner Ax1 with GB and 2ww. Compared to yesterday, pt reports significant improvement in pain and mobility. PRN oxy 2.5mg given x1 dose this morning @ 0850 along with scheduled Tylenol q6H. Non-productive cough has turned into productive while sitting up in the chair; encouraged pt to spit out phlegm rather than swallowing it. Requiring 2L NC to maintain O2 > 90% today. PO intake remains poor- pt was able to eat x2 applesauce today. Nutritional supplements & other fluid options offered but patient declined. Family has been in visiting, bringing patient?s spirits up. PIV in left wrist SL and C/D/I. Lidocaine patch in place on right hip. ?
--- NOTE | 2023-07-01 16:58 | PM.IMPN1 ---
Progress Note: A&P Assessment and plan (1) Influenza A: Problem details: -oseltamivir dosed for decreased renal function -schedule Tylenol for aches and pains, lidocaine patch for right hip pain, Vistaril p.r.n., ice and/or heat p.r.n.. Plain film of right hip negative for acute fractures or findings. Related to acute viral illness, improving overnight Status: Acute (2) Hyponatremia: Problem details: -slowly improving, 132, now 133 -2000 mL fluid restriction Status: Acute (3) Hypoxia: Problem details: -oxygen supplementation as needed, continue to wean as able Status: Acute (4) Dehydration: Problem details: -IV fluid rehydration. Continue until improved oral intake Status: Acute (5) Acute kidney injury: Problem details: -suspect from dehydration -improving, 1.2, down from 1.6, continue to monitor Status: Acute Time Spent With Patient Total time spent: Total time spent caring for the patient today was 45 minutes. This includes time spent for the visit reviewing the chart, time spent during the visit, time spent after the visit and documentation and planning in coordination of care. Subjective Date Seen: 07/01/23 Interval history: Patient is feeling better this morning. Pain of hip has significantly improved. He otherwise remains achy all over. Poor appetite. No nausea vomiting. No events reported overnight. Has remained afebrile Exam Narrative: Exam Narrative: PHYSICAL EXAM General: Calm this morning, NAD Cardiovascular: RRR, S1S2. No pitting edema Pulmonary: CTA bilaterally without rhonchi, rales, expiratory wheezes. No dyspnea on nasal cannula Neurological: Alert, less anxious, answering questions appropriately Extremities: No gross joint deformity or swelling. AROMI. Neurovascularly intact. No change Skin: Warm, dry. Const: Vital Signs, click to edit/add: Vital Signs - 24 hr 06/30/23 21:45 07/01/23 00:20 07/01/23 00:20 Temperature 98.5 F Pulse Rate [Pulse Oximeter] 80 Respiratory Rate 16 18 18 Blood Pressure [Le ft Arm] Blood Pressure [Ri ght Arm] 121/62 Pulse Oximetry 90 94 Oxygen Delivery Me thod Nasal Cannula Nasal Cannula Oxygen Flow Rate 1 1 07/01/23 00:20 07/01/23 04:25 07/01/23 07:00 Temperature 98.0 F 98.3 F Pulse Rate [Pulse Oximeter] 79 72 78 Respiratory Rate 18 16 18 Blood Pressure [Le ft Arm] Blood Pressure [Ri ght Arm] 124/66 135/69 Pulse Oximetry 94 92 Oxygen Delivery Me thod Nasal Cannula Nasal Cannula Oxygen Flow Rate 1 1 07/01/23 07:00 07/01/23 07:00 07/01/23 11:00 Temperature 98 F 97.8 F Pulse Rate [Pulse Oximeter] 78 85 Respiratory Rate 18 18 18 Blood Pressure [Le ft Arm] 117/66 Blood Pressure [Ri ght Arm] 144/74 H Pulse Oximetry 93 93 86 L Oxygen Delivery Me thod Nasal Cannula Nasal Cannula Room Air Oxygen Flow Rate 1 1 07/01/23 12:26 07/01/23 12:27 07/01/23 15:00 Temperature Pulse Rate [Pulse Oximeter] Respiratory Rate Blood Pressure [Le ft Arm] Blood Pressure [Ri ght Arm] Pulse Oximetry 88 91 90 Oxygen Delivery Me thod Nasal Cannula Nasal Cannula Nasal Cannula Oxygen Flow Rate 1.5 2 2 Labs Labs: Laboratory Results - last 24 hr 07/01/23 07/01/23 07:47 09:10 WBC 8.43 RBC 4.31 Hgb 13.2 Hct 41.8 MCV 97 MCH 31 MCHC 32 RDW Coeff of Leonardo 12.6 Plt Count 183 Neut % (Auto) 81.5 H Lymph % (Auto) 9.1 L [place] % (Auto) 8.9 Eos % (Auto) 0.0 Baso % (Auto) 0.1 Neut # (Auto) 6.90 Lymph # (Auto) 0.80 L [place] # (Auto) 0.80 Eos # (Auto) 0.00 Baso # (Auto) 0.01 Abs Immat Gran (auto) 0.03 Imm/Tot Granulo (auto) 0.4 Sodium 133 L Potassium 3.6 Chloride 94 L Carbon Dioxide 28 Anion Gap 11 BUN 32 H Creatinine 1.2 Estimated Creat Clear 29.04 Estimated GFR 45 Glucose 89 Calcium 8.0 L
[2023-07-02 03:00] VITALS: BP 104/57; PULSE 80; RESP 18; TEMP 36.9; O2SAT 93
--- NOTE | 2023-07-02 04:48 | PC.NURSE ---
End of Shift: Patient pleasant and cooperative. Alert and oriented. Temp max 99.6 at start of shift. Denies pain. Up to chair and bathroom with SBA and walker. Denies nausea. States poor appetite, encouraged to try to increase oral intake. 1L NC to keep sats greater than 90%. Sats decrease to 84% on room air.
[2023-07-02 06:36] LABS: Hematocrit 37.3 % (33.0-51.0); Hemoglobin* 11.9 gm/dL (12.0-16.0); Mean Corpuscular HGB Conc 32 gm/dL (32-36); Mean Corpuscular Hemoglobin 30 pg (26-34); Mean Corpuscular Volume 95 fL (80-100); Platelet Count* 226 K/uL (140-440); Red Blood Count 3.91 m/uL (4.00-5.20); White Blood Count* 8.57 K/uL (4.50-11.00)
[2023-07-02 06:41] LABS: Slide Review Reflex No
[2023-07-02 06:51] LABS: Chloride* 94 mmol/L (96-114); Potassium* 3.3 mmol/L (3.6-5.1); Sodium* 131 mmol/L (135-149)
[2023-07-02 06:54] LABS: Anion Gap 8 mEq/L (7-15); Blood Urea Nitrogen* 35 mg/dL (7-30); Carbon Dioxide* 29 mmol/L (20-32); Creatinine* 1.2 mg/dL (0.5-1.5); Est. Creatinine Clearance* 29.02; Estimated Glomerular Filt Rate 45 ml/min; Glucose* 114 mg/dL (60-115)
[2023-07-02 06:55] LABS: Calcium* 7.8 mg/dL (8.4-10.6)
[2023-07-02 07:35] VITALS: BP 126/68; PULSE 82; RESP 18; TEMP 37.3; O2SAT 93
[2023-07-02] MEDS: MONTELUKAST 10 MG TABLET PO (08:52)
[2023-07-02] MEDS: OSELTAMIVIR 30 MG CAPSULE PO (08:52)
[2023-07-02] MEDS: SODIUM CHLORIDE 0.9 % (FLUSH) 10 ML SYRINGE 5 ML IVF (08:53)
[2023-07-02] MEDS: 0.9 % SODIUM CHLORIDE 1000 ml 1,000 ML 75 ML IV (09:59)
[2023-07-02] MEDS: BENZONATATE 100 MG CAPSULE PO ×3 (10:00→21:32)
[2023-07-02] MEDS: LIDOCAINE 5% PATCH 1 PATCH TRANSDERMA (10:00)
[2023-07-02] MEDS: ACETAMINOPHEN 325 MG TABLET 650 MG PO ×2 (10:01→18:46)
[2023-07-02] MEDS: BENZOCAINE/MENTHOL 1 EACH LOZENGE MUCOUS MEM (10:01)
[2023-07-02] MEDS: OXYCODONE 5 MG TABLET 2.5 MG PO (10:46)
[2023-07-02 11:20] VITALS: BP 107/64; PULSE 72; RESP 18; TEMP 36.8; O2SAT 94
--- NOTE | 2023-07-02 14:20 | PM.IMPN1 ---
Progress Note: A&P Assessment and plan (1) Influenza A: Problem details: -oseltamivir dosed for decreased renal function -schedule Tylenol for aches and pains, lidocaine patch for right hip pain, Vistaril p.r.n., ice and/or heat p.r.n.. Plain film of right hip negative for acute fractures or findings. Related to acute viral illness, improving. Status: Acute (2) Hyponatremia: Problem details: -131, in setting of poor oral intake. -gentle hydration with normal saline, monitoring Status: Acute (3) Hypoxia: Problem details: -oxygen supplementation as needed, continue to wean as able, 1 L today Status: Acute (4) Dehydration: Problem details: -IV fluid rehydration. Continue until improved oral intake Status: Acute (5) Acute kidney injury: Problem details: -suspect from dehydration -improving, stable, down from 1.6, continue to monitor Status: Acute Time Spent With Patient Total time spent: Total time spent caring for the patient today was 45 minutes. This includes time spent for the visit reviewing the chart, time spent during the visit, time spent after the visit and documentation and planning in coordination of care. Subjective Date Seen: 07/02/23 Interval history: Patient is sitting up in bed and appears significantly improved though still fatigued. Smiles today. Her is present today. Continues with generalized aches, cough causing rib pain, hoarsenss. Still limited appetite, drinking fluids otherwise. Exam Narrative: Exam Narrative: PHYSICAL EXAM General: Sitting up in bed, smiles, still appears tired, otherwise NAD Cardiovascular: RRR, S1S2. No pitting edema Pulmonary: CTA bilaterally without rhonchi, rales, expiratory wheezes. No dyspnea on nasal cannula Neurological: Alert, calm, answering questions appropriately Extremities: No gross joint deformity or swelling. AROMI. Neurovascularly intact. No change Skin: Warm, dry. Const: Vital Signs, click to edit/add: Vital Signs - 24 hr 07/01/23 15:00 07/01/23 15:00 07/01/23 15:00 Temperature 99.6 F Pulse Rate [Pulse Oximeter] 90 90 Respiratory Rate 18 18 Blood Pressure [Le ft Arm] Blood Pressure [Ri ght Arm] 139/76 Pulse Oximetry 90 90 Oxygen Delivery Me thod Nasal Cannula Nasal Cannula Oxygen Flow Rate 2 2 07/01/23 19:00 07/01/23 23:00 07/01/23 23:00 Temperature 97.9 F 98.2 F Pulse Rate [Pulse Oximeter] 83 86 Respiratory Rate 22 20 Blood Pressure [Le ft Arm] Blood Pressure [Ri ght Arm] 126/67 118/66 Pulse Oximetry 92 91 91 Oxygen Delivery Me thod Nasal Cannula Nasal Cannula Nasal Cannula Oxygen Flow Rate 1 1 1 07/01/23 23:00 07/02/23 03:00 07/02/23 07:35 Temperature 98.4 F Pulse Rate [Pulse Oximeter] 86 80 Respiratory Rate 20 18 18 Blood Pressure [Le ft Arm] 104/57 L Blood Pressure [Ri ght Arm] Pulse Oximetry 93 93 Oxygen Delivery Me thod Nasal Cannula Nasal Cannula Oxygen Flow Rate 1 1 07/02/23 07:35 07/02/23 07:35 07/02/23 11:20 Temperature 99.2 F 98.3 F Pulse Rate [Pulse Oximeter] 82 82 72 Respiratory Rate 18 18 18 Blood Pressure [Le ft Arm] 126/68 107/64 Blood Pressure [Ri ght Arm] Pulse Oximetry 93 94 Oxygen Delivery Me thod Nasal Cannula Nasal Cannula Oxygen Flow Rate 1 1 Labs Labs: Laboratory Results - last 24 hr 07/02/23 06:08 WBC 8.57 RBC 3.91 L Hgb 11.9 L Hct 37.3 MCV 95 MCH 30 MCHC 32 Plt Count 226 Sodium 131 L Potassium 3.3 L Chloride 94 L Carbon Dioxide 29 Anion Gap 8 BUN 35 H Creatinine 1.2 Estimated Creat Clear 29.02 Estimated GFR 45 Glucose 114 Calcium 7.8 L
[2023-07-02 15:00] VITALS: RESP 16; O2SAT 94
--- NOTE | 2023-07-02 15:49 | PC.NURSE ---
End of Shift: Pt has been very pleasant and cooperative. she looks sick. she feels weak and lethargic. Alert and oriented. Temp max 99.2 right hip pain she got po oxycodone. she has a bad right hip per her . . Up to chair and bathroom with SBA and walker. Denies nausea. poor appetite, she likes ensure. encouraged po oral intake. 1L NC to keep sats greater than 90%. she was 88% on 1L nc after walking from door and back with PT.
[2023-07-02] MEDS: RIVAROXABAN 10 MG TABLET 20 MG PO (18:46)
[2023-07-02 19:00] VITALS: BP 130/72; PULSE 86; RESP 18; TEMP 37; O2SAT 94
--- NOTE | 2023-07-02 20:04 | PC.NURSE ---
End of shift [id number] - RN took over pt care at 1500. Pt alert, oriented, cooperative during shift. Up to bathroom with standby assistance and walker, continent of bowel and bladder. Pt reported poor appetite, but increased thirst. RN gave water per fluid restriction. Pt denied pain, nausea, dizziness. SOB noted on exertion. Pt able to recover with effective breathing pattern. Tolerating O2 via nasal cannula at 1L to maintain saturation above 90%. Family at bedside, pt observed to sleep during shift.
[2023-07-02 23:00] VITALS: BP 132/73; PULSE 80; RESP 18; TEMP 36.7; O2SAT 95
[2023-07-03] MEDS: ACETAMINOPHEN 325 MG TABLET 650 MG PO ×4 (01:19→23:20)
[2023-07-03 03:00] VITALS: BP 148/76; PULSE 76; RESP 20; TEMP 36.8; O2SAT 93
[2023-07-03 06:38] LABS: Hematocrit 36.7 % (33.0-51.0); Hemoglobin* 11.8 gm/dL (12.0-16.0); Mean Corpuscular HGB Conc 32 gm/dL (32-36); Mean Corpuscular Hemoglobin 31 pg (26-34); Mean Corpuscular Volume 96 fL (80-100); Platelet Count* 288 K/uL (140-440); Red Blood Count 3.82 m/uL (4.00-5.20); Slide Review Reflex No; White Blood Count* 6.89 K/uL (4.50-11.00)
--- NOTE | 2023-07-03 06:53 | PC.NURSE ---
SHIFT NOTE -: Pt pleasant and cooperative. On 1L oxygen with saturations in the low 90's. Afebrile. Pt coughing, encouraged to cough out secretions instead of swallowing. Pt denies pain, up SBA and tolerating well. Pt reports she feels much better.
[2023-07-03 06:57] LABS: Chloride* 97 mmol/L (96-114); Potassium* 3.2 mmol/L (3.6-5.1); Sodium* 133 mmol/L (135-149)
[2023-07-03 07:00] LABS: Anion Gap 9 mEq/L (7-15); Carbon Dioxide* 27 mmol/L (20-32)
[2023-07-03 07:01] LABS: Blood Urea Nitrogen* 26 mg/dL (7-30); Calcium* 7.6 mg/dL (8.4-10.6); Glucose* 97 mg/dL (60-115)
[2023-07-03 07:14] LABS: Est. Creatinine Clearance* 35.43; Estimated Glomerular Filt Rate 56 ml/min
[2023-07-03 08:30] VITALS: BP 146/87; PULSE 78; RESP 20; TEMP 36.9; O2SAT 94
[2023-07-03] MEDS: OXYCODONE 5 MG TABLET 2.5 MG PO (09:22)
[2023-07-03] MEDS: OSELTAMIVIR 30 MG CAPSULE PO (09:22)
[2023-07-03] MEDS: MONTELUKAST 10 MG TABLET PO (09:22)
[2023-07-03] MEDS: METOPROLOL SUCCINATE (XL) 50 MG TAB PO (09:22)
[2023-07-03] MEDS: POTASSIUM CHLORIDE 10 MEQ CAPSULE ER 20 MEQ PO ×2 (09:23→17:33)
[2023-07-03] MEDS: SODIUM CHLORIDE 0.9 % (FLUSH) 10 ML SYRINGE 5 ML IVF ×2 (09:23→20:24)
[2023-07-03] MEDS: BENZONATATE 100 MG CAPSULE PO ×3 (09:23→20:24)
[2023-07-03 13:00] VITALS: BP 137/84; PULSE 80; RESP 20; TEMP 36.7; O2SAT 94
[2023-07-03] MEDS: LIDOCAINE 5% PATCH 1 PATCH TRANSDERMA (13:39)
--- NOTE | 2023-07-03 13:41 | PM.IMPN1 ---
Progress Note: A&P Assessment and plan (1) Influenza A: Problem details: -oseltamivir dosed for decreased renal function -has completed dosing now -schedule Tylenol for aches and pains, lidocaine patch for right hip pain, Vistaril p.r.n., ice and/or heat p.r.n.. Plain film of right hip negative for acute fractures or findings. Related to acute viral illness, improving. Status: Acute (2) Hyponatremia: Problem details: -stable in setting of poor oral intake. -continue to monitor Status: Acute (3) Hypoxia: Problem details: -oxygen supplementation as needed, continue to wean as able, 1 L Status: Acute (4) Dehydration: Problem details: DEHYDRATION/MALNUTRITION/FAILURE TO THRIVE -encouraging increasing oral intake, fluids, good dietary choices 07/03: Discussed malnutrition in setting of poor oral intake with cross enterprise integrator. My concern is that patient is not making an effort to eat. Nursing staff will continue to get patient out of bed and order small meals frequently throughout the day documenting oral intake. If this fails, patient is aware she may need an NG tube for tube feedings. Status: Acute (5) Acute kidney injury: Problem details: -suspect from dehydration -improving, stable, down from 1.6, continue to monitor Status: Acute Plan Plan to discharge to home when patient demonstrates improved oral intake, effort to complete ADLs independently. Time Spent With Patient Total time spent: Total time spent caring for the patient today was 45 minutes. This includes time spent for the visit reviewing the chart, time spent during the visit, time spent after the visit and documentation and planning in coordination of care. Subjective Date Seen: 07/03/23 Interval history: Patient is lying in bed this morning, not feeling as well as she did yesterday, tired and weak. Body aches are improving. She has remained afebrile and vitally stable. She admits she has not done any of her ADLs since admission. Continues to drink limited amount of fluids not ordering any thing more from the menu. Exam Narrative: Exam Narrative: PHYSICAL EXAM General: Lying reclined in bed, keeps eyes closed for the most part, no smiling today, otherwise NAD Cardiovascular: RRR, S1S2. No pitting edema Pulmonary: CTA bilaterally without rhonchi, rales, expiratory wheezes. No dyspnea on nasal cannula Abdomen: Soft nontender Neurological: Alert, calm, answering questions appropriately Extremities: No gross joint deformity or swelling. AROMI. Neurovascularly intact. No change Skin: Warm, dry. Const: Vital Signs, click to edit/add: Vital Signs - 24 hr 07/02/23 15:00 07/02/23 19:00 07/02/23 23:00 Temperature 98.6 F 98.0 F Pulse Rate [Pulse Oximeter] 86 80 Respiratory Rate 16 18 18 Blood Pressure [Le ft Arm] 130/72 132/73 Pulse Oximetry 94 94 95 Oxygen Delivery Me thod Nasal Cannula Nasal Cannula Nasal Cannula Oxygen Flow Rate 1 1 1 07/02/23 23:00 07/02/23 23:00 07/03/23 03:00 Temperature 98.2 F Pulse Rate [Pulse Oximeter] 80 76 Respiratory Rate 18 18 20 Blood Pressure [Le ft Arm] 148/76 H Pulse Oximetry 95 93 Oxygen Delivery Me thod Nasal Cannula Nasal Cannula Oxygen Flow Rate 1 1 Labs Labs: Laboratory Results - last 24 hr 07/03/23 06:00 WBC 6.89 RBC 3.82 L Hgb 11.8 L Hct 36.7 MCV 96 MCH 31 MCHC 32 Plt Count 288 Sodium 133 L Potassium 3.2 L Chloride 97 Carbon Dioxide 27 Anion Gap 9 BUN 26 Creatinine 1.0 Estimated Creat Clear 35.43 Estimated GFR 56 Glucose 97 Calcium 7.6 L
[2023-07-03 13:57] VITALS: BMI 18.1
[2023-07-03 15:00] VITALS: BP 124/78; PULSE 81; RESP 20; TEMP 36.7; O2SAT 93
[2023-07-03] MEDS: RIVAROXABAN 10 MG TABLET 20 MG PO (17:32)
--- NOTE | 2023-07-03 18:57 | PC.NURSE ---
PATIENT REPORTED GENERALIZED PAIN AT BEGINNING OF SHIFT AND RECEIVED OXYCODONE AND TYLENOL. CONTINUES TO REPORT DECREASED APPETITE BUT DENIES NAUSEA. DISCUSSED CONCERN FOR PATIENT NOT HAVING EATEN IN MULTIPLE DAYS. ENCOURAGED SUPPLEMENTS AND MORE FREQUENT SMALLER MEALS IF POSSIBLE. PATIENT SIPPED ON ENSURE IN ROOM AND DID EAT HALF A SERVING OF MACARONI AND CHEESE FOR A LATE LUNCH. PATIENT WASHED UP WITHOT AND UP IN RECLINER. TO BATHROOM WITH SBA, WALKER AND GAIT BELT. ENCOURAGED PATIENT TO USE INCENTIVE SPIROMETER. ABLE TO USE TO 250-500. MOIST, PRODUCTIVE COUGH BUT PATIENT SWALLOWING SPUTUM.
[2023-07-03 19:00] VITALS: BP 128/73; PULSE 87; RESP 18; TEMP 36.4; O2SAT 91
[2023-07-03 23:00] VITALS: BP 155/70; PULSE 87; RESP 19; TEMP 36.9; O2SAT 93
[2023-07-04] VITALS (8 sets, daily range): BP systolic 124–158; BP diastolic 69–81; PULSE 75–90; RESP 16–20; TEMP 36.6–37.2; O2SAT 87–94
[2023-07-04] MEDS: ACETAMINOPHEN 325 MG TABLET 650 MG PO ×4 (04:16→21:47)
--- NOTE | 2023-07-04 06:01 | PC.NURSE ---
End of shift report [id number]: Alert and oriented x 4. Denies any pain this shift. Patient does report minimal shortness of breath with exertion, denies any SOB with rest. Continues to require oxygen at 1L per NC to maintain sats <88%. Coarse lung sounds bilaterally, continues to have productive cough, patient does report swallowing mucous that is brought up. Appetite poor, no po intake for supper and patient denies any foods or nutritional supplements offered, writer producer continued to encourage patient to increase po intake.
[2023-07-04 06:52] LABS: Chloride* 100 mmol/L (96-114); Potassium* 3.7 mmol/L (3.6-5.1); Sodium* 135 mmol/L (135-149)
[2023-07-04 06:53] LABS: Hematocrit 36.8 % (33.0-51.0); Hemoglobin* 11.8 gm/dL (12.0-16.0); Mean Corpuscular HGB Conc 32 gm/dL (32-36); Mean Corpuscular Hemoglobin 31 pg (26-34); Mean Corpuscular Volume 95 fL (80-100); Platelet Count* 377 K/uL (140-440); Red Blood Count 3.86 m/uL (4.00-5.20); White Blood Count* 7.66 K/uL (4.50-11.00)
[2023-07-04 06:55] LABS: Est. Creatinine Clearance* 33.97; Estimated Glomerular Filt Rate 56 ml/min
[2023-07-04 06:56] LABS: Anion Gap 9 mEq/L (7-15); Blood Urea Nitrogen* 23 mg/dL (7-30); Calcium* 8.1 mg/dL (8.4-10.6); Carbon Dioxide* 26 mmol/L (20-32); Glucose* 102 mg/dL (60-115)
[2023-07-04 07:25] LABS: Slide Review Reflex No
--- NOTE | 2023-07-04 09:03 | CRLHL7_ITS ---
For Patients: As a result of the Century Cures Act, medical imaging exams and procedure reports are released immediately into your electronic medical record. You may view this report before your referring provider. If you have questions, please contact your health care provider. INDICATION: Dyspnea. Worsening hypoxia. COMPARISON: June 29, 2023 TECHNIQUE: Single-view examination July 04, 2023 at 9:28 a.m. FINDINGS: TUBES AND LINES: None. HEART AND MEDIASTINUM: Mildly enlarged heart unchanged appearance.. LUNGS AND PLEURAL SPACES: Significant airspace disease. This is diffuse and bilateral, right greater than left. This is most pronounced in the right midlung, right base and left base. The general appearance has worsened especially at the left base.Probable small left effusion. No pneumothorax OSSEOUS STRUCTURES: Age-appropriate appearance. No acute focal finding. IMPRESSION: Significant interval worsening in bilateral multifocal airspace disease Dictated by Mick Sims MD @ 07/04/2023 9:56:32 AM (Electronically Signed)
[2023-07-04] MEDS: METOPROLOL SUCCINATE (XL) 50 MG TAB PO (10:29)
[2023-07-04] MEDS: SODIUM CHLORIDE 0.9 % (FLUSH) 10 ML SYRINGE 5 ML IVF ×2 (10:29→21:02)
[2023-07-04] MEDS: BENZONATATE 100 MG CAPSULE PO ×2 (10:30→21:02)
[2023-07-04] MEDS: MONTELUKAST 10 MG TABLET PO (10:30)
[2023-07-04] MEDS: POTASSIUM CHLORIDE 10 MEQ CAPSULE ER 20 MEQ PO ×2 (10:30→17:38)
--- NOTE | 2023-07-04 11:23 | CRLHL7_ITS ---
For Patients: As a result of the Century Cures Act, medical imaging exams and procedure reports are released immediately into your electronic medical record. You may view this report before your referring provider. If you have questions, please contact your health care provider. INDICATION: Nausea COMPARISON: none TECHNIQUE: Real time garcia scale imaging and color Doppler analysis was performed of the right upper quadrant. FINDINGS: The patient`s liver is of normal size and has uniform echogenicity. Normal IVC. Aorta measures 2.2 cm with intimal thickening. There is no evidence of ascites. The gallbladder is of normal size and there are layering echogenic stones present. The gallbladder wall measures 1.6 mm in thickness. The common bile duct is of normal size and measures 2.5 mm in diameter at the level of the norberto hepatis. The pancreas appears normal. There is no evidence of a stone or hydronephrosis within the right kidney. The right kidney measures cm in length. IMPRESSION: Cholelithiasis. No biliary obstruction. Atherosclerotic disease. Dictated by Víctor Abraham MD @ 07/05/2023 2:36:13 PM (Electronically Signed)
[2023-07-04] MEDS: LIDOCAINE 5% PATCH 1 PATCH TRANSDERMA (11:46)
[2023-07-04 12:24] LABS: Albumin* 3.6 g/dL (3.3-5.0); Chloride* 99 mmol/L (96-114); Sodium* 134 mmol/L (135-149)
[2023-07-04 12:25] LABS: Potassium* 4.2 mmol/L (3.6-5.1)
[2023-07-04 12:27] LABS: Alanine Aminotransferase* 15 U/L (4-35); Alkaline Phosphatase* 78 U/L (40-150); Anion Gap 9 mEq/L (7-15); Aspartate Amino Transferase* 24 U/L (12-35); Bilirubin Total* 0.7 mg/dL (0.1-1.5); Blood Urea Nitrogen* 24 mg/dL (7-30); Calcium* 8.3 mg/dL (8.4-10.6); Carbon Dioxide* 26 mmol/L (20-32); Est. Creatinine Clearance* 33.97; Estimated Glomerular Filt Rate 56 ml/min; Glucose* 107 mg/dL (60-115); Lipase* 98 U/L (23-300); Total Protein* 7.6 g/dL (6.0-8.3)
--- NOTE | 2023-07-04 14:20 | RESP.RT ---
Continuing to encourage IS C&DB. Pt not enthusiastic about any of this. Unable to do aerobika secondary to lack of appropriate negative inspiratory flow. Would like to continue to wean oxygen.
[2023-07-04] MEDS: ONDANSETRON ODT 4 MG TAB PO (14:30)
[2023-07-04] MEDS: BENZOCAINE/MENTHOL 1 EACH LOZENGE MUCOUS MEM (15:39)
--- NOTE | 2023-07-04 16:51 | PM.IMPN1 ---
Progress Note: A&P Assessment and plan (1) Influenza A: Problem details: -completed: oseltamivir dosed for decreased renal function, last dose was yesterday morning. -schedule Tylenol for aches and pains, lidocaine patch for right hip pain, Vistaril p.r.n., ice and/or heat p.r.n.. Plain film of right hip negative for acute fractures or findings. Related to acute viral illness, improving. Status: Acute (2) Hyponatremia: Problem details: -stable in setting of poor oral intake. -continue to monitor Status: Acute (3) Hypoxia: Problem details: -oxygen supplementation as needed, continue to wean as able, 1 L Status: Acute (4) Dehydration: Problem details: DEHYDRATION/MALNUTRITION/FAILURE TO THRIVE -encouraging increasing oral intake, fluids, good dietary choices 07/03: Discussed malnutrition in setting of poor oral intake with talent acquisition specialist. My concern is that patient is not making an effort to eat. Nursing staff will continue to get patient out of bed and order small meals frequently throughout the day documenting oral intake. If this fails, patient is aware she may need an NG tube for tube feedings. - 07/04: Patient endorses nausea. Was recently on Tamiflu which may have contributed to this, but last dose was yesterday morning. I suspect her nausea will improve now that she is no longer taking this and should be improving from recent influenza infection. Additionally I will add omeprazole b.i.d. and I have asked nursing staff to use Zofran before meals. I have encouraged the patient to take even just a few bites with each meal. Will do further workup which include labs, including lipase given epigastric tenderness, and right upper quadrant ultrasound. Status: Acute (5) Acute kidney injury: Problem details: -suspect from dehydration -creatinine stable at 1, down from 1.6, continue to monitor Status: Acute (6) Pneumonia: Problem details: Infiltrate in the right lower lobe on x-ray, recent influenza. Start antibiotics for probable bacterial pneumonia associated with influenza. Status: Acute Plan Plan to discharge to home when patient demonstrates improved oral intake, effort to complete ADLs independently. Given level of debility at this point, patient may need rehab. Time Spent With Patient Total time spent: Total time spent caring for the patient today was 50 minutes. This includes time spent for the visit reviewing the chart, time spent during the visit with patient, her , and daughter, time spent after the visit and documentation and planning in coordination of care. Subjective Time Seen by Provider: 11:06 Date Seen: 07/04/23 Interval history: Sarah is resting in bed with her eyes closed. When I walked in, her and daughter were in the room and immediately started talking with me. Sarah was clearly listening to the conversation even though her eyes were closed as she spoke appropriately at 1 point despite us having not asked her any questions. Her is very concerned that she has not eaten anything. He tells me that she has been very nauseous and has a sensitivity to smells that predates her influenza infection. In fact it appears that she has always had difficulty eating large amounts and gets anorexic or nauseous easily ever since she was a child. Sarah confirms that she has been nauseous. I did note that this was interesting as staff did not seem to be aware that she was nauseous and she has not been getting any of the p.r.n. Zofran that is ordered both orally and IV. Exam Narrative: Exam Narrative: General: No acute distress. Laying in bed, not moving much, eyes mostly closed, but does occasionally open them any answer. Appears very weak. No pallor, garcia. No jaundice. Oropharynx: Clear. Mucous membranes moist. Cardiovascular: Regular rate and rhythm. No murmurs, gallops, or rubs. Respiratory: Clear to auscultation bilaterally. No wheezes or crackles. Abdomen: Bowel sounds present. Soft, nondistended, diffusely tender, some mild tenderness in the epigastrium. Extremities: No pedal edema. Const: Vital Signs, click to edit/add: Vital Signs - 24 hr 07/03/23 19:00 07/03/23 23:00 07/03/23 23:00 Temperature 97.5 F L Pulse Rate [Pulse Oximeter] 87 87 Respiratory Rate 18 19 19 Blood Pressure [Le ft Arm] 128/73 Blood Pressure [Ri ght Arm] Pulse Oximetry 91 93 Oxygen Delivery Me thod Nasal Cannula Nasal Cannula Oxygen Flow Rate 1 1 07/03/23 23:00 07/04/23 03:00 07/04/23 08:15 Temperature 98.5 F 98.0 F Pulse Rate [Pulse Oximeter] 87 75 Respiratory Rate 19 20 Blood Pressure [Le ft Arm] 155/70 H Blood Pressure [Ri ght Arm] 158/71 H Pulse Oximetry 93 93 87 L Oxygen Delivery Me thod Nasal Cannula Nasal Cannula Room Air Oxygen Flow Rate 1 1 1 07/04/23 08:30 07/04/23 09:00 07/04/23 11:00 Temperature 98.3 F 98.0 F Pulse Rate [Pulse Oximeter] 84 84 87 Respiratory Rate 20 20 20 Blood Pressure [Le ft Arm] Blood Pressure [Ri ght Arm] 140/81 H 147/73 H Pulse Oximetry 87 L 94 Oxygen Delivery Me thod Room Air Room Air Oxygen Flow Rate 1 1 07/04/23 15:35 07/04/23 15:35 Temperature 98.3 F Pulse Rate [Pulse Oximeter] 83 Respiratory Rate 18 Blood Pressure [Le ft Arm] 144/80 H Blood Pressure [Ri ght Arm] Pulse Oximetry 93 93 Oxygen Delivery Me thod Nasal Cannula Nasal Cannula Oxygen Flow Rate 1 1 Labs Labs: Laboratory Results - last 24 hr 07/04/23 07/04/23 06:10 11:59 WBC 7.66 RBC 3.86 L Hgb 11.8 L Hct 36.8 MCV 95 MCH 31 MCHC 32 Plt Count 377 Sodium 135 134 L Potassium 3.7 4.2 Chloride 100 99 Carbon Dioxide 26 26 Anion Gap 9 9 BUN 23 24 Creatinine 1.0 1.0 Estimated Creat Clear 33.97 33.97 Estimated GFR 56 56 Glucose 102 107 Calcium 8.1 L 8.3 L Total Bilirubin 0.7 AST 24 ALT 15 Alkaline Phosphatase 78 Total Protein 7.6 Albumin 3.6 Lipase 98
[2023-07-04] MEDS: cefTRIAXone 1 GM in 0.9 % SODIUM CHLORIDE Mini-bag 100 ML IVPB (17:37)
[2023-07-04] MEDS: RIVAROXABAN 10 MG TABLET 20 MG PO (17:37)
[2023-07-04] MEDS: AZITHROMYCIN 500 MG in 0.9 % SODIUM CHLORIDE 250 ml 250 ML 255 MG IVPB (18:44)
[2023-07-04] MEDS: OMEPRAZOLE 20 MG CAPSULE DR PO (21:02)
--- NOTE | 2023-07-04 22:36 | PC.NURSE ---
Shift [id number]- Patient denies pain. She is asked if zofran is effective, is she nauseous? She replies no, it's just that nothing sounds good to eat. Continues to deny nausea throughout shift. Several family members in room throughout evening, patient appears dis-engaged- eyes closed. She eats a couple tortilla chips this afternoon and a few pieces of chicken this evening according to family member. She declines to get out of bed. She also declines offer and assistance to brush teeth, PM cares.
[2023-07-05 03:00] VITALS: PULSE 88; RESP 16; TEMP 36.9; O2SAT 90
--- NOTE | 2023-07-05 05:14 | PC.NURSE ---
SHIFT NOTE -: Pt fatigued, pt woke up around 0100 with an incontinent loose stool, yohannes care provided. Pt up 1 assist. On 1L O2 PNC, oxygen saturations in the low 90's, afebrile. Pt denies pain, SOB, CP, and N/V.
[2023-07-05 06:27] LABS: Hematocrit 36.9 % (33.0-51.0); Hemoglobin* 11.6 gm/dL (12.0-16.0); Mean Corpuscular HGB Conc 31 gm/dL (32-36); Mean Corpuscular Hemoglobin 30 pg (26-34); Mean Corpuscular Volume 97 fL (80-100); Platelet Count* 438 K/uL (140-440); Red Blood Count 3.81 m/uL (4.00-5.20); White Blood Count* 9.66 K/uL (4.50-11.00)
[2023-07-05 06:30] LABS: Slide Review Reflex No
[2023-07-05 06:38] LABS: Chloride* 101 mmol/L (96-114); Potassium* 4.3 mmol/L (3.6-5.1); Sodium* 135 mmol/L (135-149)
[2023-07-05 06:41] LABS: Anion Gap 11 mEq/L (7-15); Blood Urea Nitrogen* 21 mg/dL (7-30); Carbon Dioxide* 23 mmol/L (20-32); Creatinine* 1.1 mg/dL (0.5-1.5); Est. Creatinine Clearance* 31.95; Estimated Glomerular Filt Rate 50 ml/min
[2023-07-05 06:42] LABS: Calcium* 7.8 mg/dL (8.4-10.6); Glucose* 90 mg/dL (60-115)
[2023-07-05 07:00] VITALS: BP 126/67; PULSE 86; RESP 24; TEMP 36.7; O2SAT 92
[2023-07-05] MEDS: OMEPRAZOLE 20 MG CAPSULE DR PO ×2 (09:30→21:37)
[2023-07-05] MEDS: SODIUM CHLORIDE 0.9 % (FLUSH) 10 ML SYRINGE 5 ML IVF ×2 (09:31→21:37)
--- NOTE | 2023-07-05 09:34 | CRLHL7_ITS ---
For Patients: As a result of the Cures Act, medical imaging exams and procedure reports are released immediately into your electronic medical record. You may view this report before your referring provider. If you have questions, please contact your health care provider. INDICATION: Chest pain. COMPARISON: Chest x-ray dated 04 July 2023. FINDINGS: A single portable chest x-ray shows a normal cardiac silhouette. Atherosclerotic aorta. The lungs show a right basilar airspace opacity which is unchanged. Probable small left-sided pleural effusion with mild left basilar atelectasis. No pneumothorax. IMPRESSION: 1. Right basilar airspace opacity is unchanged. 2. Probable small left-sided pleural effusion with mild left basilar atelectasis. Dictated by Suhas Espinoza MD @ 07/05/2023 9:51:20 AM Dictated by: Suhas Espinoza MD @ 07/05/2023 09:51:27 (Electronically Signed)
[2023-07-05] MEDS: ASPIRIN 81 MG TAB.CHEW 324 MG PO (09:44)
[2023-07-05] MEDS: BENZONATATE 100 MG CAPSULE PO ×3 (09:45→21:37)
[2023-07-05] MEDS: METOPROLOL SUCCINATE (XL) 50 MG TAB PO (09:45)
[2023-07-05] MEDS: ACETAMINOPHEN 325 MG TABLET 650 MG PO ×3 (09:46→21:37)
[2023-07-05] MEDS: MONTELUKAST 10 MG TABLET PO (09:46)
[2023-07-05 10:07] LABS: Troponin I* < 0.01 ng/mL (0.01-0.04)
[2023-07-05 10:39] LABS: Troponin I* < 0.01 ng/mL (0.01-0.04)
[2023-07-05 11:00] VITALS: BP 114/72; PULSE 80; RESP 20; TEMP 36.9; O2SAT 91
[2023-07-05] MEDS: BENZOCAINE/MENTHOL 1 EACH LOZENGE MUCOUS MEM (11:53)
[2023-07-05 13:34] LABS: C.Difficile Negative (Negative); CDIFFEPI 027 PRESUMPTIVE NEGATIVE (Negative)
--- NOTE | 2023-07-05 15:10 | P.IMPN_ITS ---
Progress Note: A&P Assessment and plan (1) Pneumonia: Problem details: - 07/04: Infiltrate in the right lower lobe on x-ray, recent influenza. Start antibiotics for probable bacterial pneumonia associated with influenza. - 07/05: some improvement in alertness. Continue ceftriaxone and azithromycin. Status: Acute (2) Influenza A: Problem details: -completed: oseltamivir dosed for decreased renal function, last dose was yesterday morning. -schedule Tylenol for aches and pains, lidocaine patch for right hip pain, Vistaril p.r.n., ice and/or heat p.r.n.. Plain film of right hip negative for acute fractures or findings. Related to acute viral illness, improving. Status: Resolved (3) Hyponatremia: Problem details: -stable in setting of poor oral intake. -continue to monitor Status: Resolved (4) Hypoxia: Problem details: -oxygen supplementation as needed, continue to wean as able, 1 L Status: Acute (5) Dehydration: Problem details: DEHYDRATION/MALNUTRITION/FAILURE TO THRIVE -encouraging increasing oral intake, fluids, good dietary choices 07/03: Discussed malnutrition in setting of poor oral intake with diversity specialist. My concern is that patient is not making an effort to eat. Nursing staff will continue to get patient out of bed and order small meals frequently throughout the day documenting oral intake. If this fails, patient is aware she may need an NG tube for tube feedings. - 07/04: Patient endorses nausea. Was recently on Tamiflu which may have contributed to this, but last dose was yesterday morning. I suspect her nausea will improve now that she is no longer taking this and should be improving from recent influenza infection. Additionally I will add omeprazole b.i.d. and Davidson lynch asked nursing staff to use Zofran before meals. I have encouraged the patient to take even just a few bites with each meal. Will do further workup which include labs, including lipase given epigastric tenderness, and right upper quadrant ultrasound. - 07/05: Oral intake remains very poor. Will continue to try Zofran and I asked the family to go home and make a home cooked meal to bring it in to see if she would eat that. If we are not successful, then will plan for Dobbhoff tube feedings tomorrow. Status: Acute (6) Acute kidney injury: Problem details: -suspect from dehydration -creatinine stable at 1.1, down from 1.6, continue to monitor Status: Acute (7) Chest pain: Problem details: Completely reproducible with palpation to chest, suspect costochondritis. Patient would not be able to tolerate NSAIDs at this point due to nausea. Use as needed ice or heat. Status: Acute Plan Patient has been having diarrhea. C diff was checked today and is negative. Plan to discharge to home when patient demonstrates improved oral intake, effort to complete ADLs independently. Given level of debility at this point, patient may need rehab. VTE prophylaxis with rivaroxaban (h/o PE with cor pulmonale). Time Spent With Patient Total time spent: Today I spent 70 minutes rounding on the patient. Greater than 50% included discussing care with the patient, her family, the team, reviewing data, updating and managing the care plan. Subjective Time Seen by Provider: 08:23 Date Seen: 07/05/23 Interval history: I spoke with Sarah this morning before any of her family arrived. I sat down and asked her to sit up and be awake for our conversation. She was sleepy, but was able to remain awake and was noticeably more awake than yesterday. She says that she is sometimes nauseous, but mostly just not hungry and can't force herself to eat or drink. She demonstrated understanding that without proper nutrition, she may actually starve to . She would like a feeding tube or even G-tube if needed for nutrition and does not want to . Around mid-morning, Sarah complained of substernal chest pain that started while coughing. Coughing exacerbates it. Her family arrived in the later morning and I went back and spoke with them as well and answered all questions. Exam Narrative: Exam Narrative: General: No acute distress. Sleeping, arousable, oriented. Able to stay awake for my conversation with her this morning. Slept through my conversation with her family. Appears very weak. Thin. Oropharynx: Clear. Mucous membranes moist. Cardiovascular: Regular rate and rhythm. No murmurs, gallops, or rubs. Respiratory: Crackles at right base. No wheezes. Chest is tender to palpation over sternum. This reproduces her chest pain completely. Abdomen: Bowel sounds present. Soft, nondistended, nontender. Extremities: No pedal edema. Const: Vital Signs, click to edit/add: Vital Signs - 24 hr 07/04/23 15:35 07/04/23 15:35 07/04/23 19:07 Temperature 98.3 F 98 F Pulse Rate [Pulse Oximeter] 83 80 Respiratory Rate 18 18 Blood Pressure [Le ft Arm] 144/80 H 125/69 Blood Pressure [Ri ght Arm] Pulse Oximetry 93 93 93 Oxygen Delivery Me thod Nasal Cannula Nasal Cannula Nasal Cannula Oxygen Flow Rate 1 1 1 07/04/23 23:17 07/04/23 23:17 07/04/23 23:17 Temperature 99 F Pulse Rate [Pulse Oximeter] 80 90 Respiratory Rate 18 16 16 Blood Pressure [Le ft Arm] Blood Pressure [Ri ght Arm] 124/74 Pulse Oximetry 91 91 Oxygen Delivery Me thod Nasal Cannula Nasal Cannula Oxygen Flow Rate 1 1 07/05/23 03:00 07/05/23 07:00 07/05/23 07:00 Temperature 98.5 F 98.1 F Pulse Rate [Pulse Oximeter] 88 86 Respiratory Rate 16 24 24 Blood Pressure [Le ft Arm] 126/67 Blood Pressure [Ri ght Arm] Pulse Oximetry 90 92 92 Oxygen Delivery Me thod Nasal Cannula Nasal Cannula Nasal Cannula Oxygen Flow Rate 1 1 1 07/05/23 07:00 07/05/23 11:00 Temperature 98.4 F Pulse Rate [Pulse Oximeter] 86 80 Respiratory Rate 24 20 Blood Pressure [Le ft Arm] Blood Pressure [Ri ght Arm] 114/72 Pulse Oximetry 91 Oxygen Delivery Me thod Nasal Cannula Oxygen Flow Rate 1 Labs Labs: Laboratory Results - last 24 hr 07/05/23 07/05/23 07/05/23 05:36 09:34 09:48 WBC 9.66 RBC 3.81 L Hgb 11.6 L Hct 36.9 MCV 97 MCH 30 MCHC 31 L Plt Count 438 Sodium 135 Potassium 4.3 Chloride 101 Carbon Dioxide 23 Anion Gap 11 BUN 21 Creatinine 1.1 Estimated Creat Clear 31.95 Estimated GFR 50 Glucose 90 Calcium 7.8 L Troponin I < 0.01 L < 0.01 L Stl C. diff Tox B Gene Stl C. diff 027-NAP1-BI Lab Acknowledgement Test Added 07/05/23 12:40 WBC RBC Hgb Hct MCV MCH MCHC Plt Count Sodium Potassium Chloride Carbon Dioxide Anion Gap BUN Creatinine Estimated Creat Clear Estimated GFR Glucose Calcium Troponin I Stl C. diff Tox B Gene Negative Stl C. diff [id number]-NAP1-BI PRESUMPTIVE NEGATIVE Lab Acknowledgement 07/05/2023 EKG: Normal sinus rhythm with sinus arrhythmia. Normal EKG. Heart rate 89 beats per minute. Ordering Physician: Jemima Hu M.D. Date of Service: 07/05/23 Procedure(s): XR chest 1V portable Accession Number(s): [id number] cc: Jemima Hu M.D.; Provider,Not a Local~ For Patients: As a result of the Cures Act, medical imaging exams and procedure reports are released immediately into your electronic medical record. You may view this report before your referring provider. If you have questions, please contact your health care provider. INDICATION: Chest pain. COMPARISON: Chest x-ray dated 04 July 2023. FINDINGS: A single portable chest x-ray shows a normal cardiac silhouette. Atherosclerotic aorta. The lungs show a right basilar airspace opacity which is unchanged. Probable small left-sided pleural effusion with mild left basilar atelectasis. No pneumothorax. IMPRESSION: 1. Right basilar airspace opacity is unchanged. 2. Probable small left-sided pleural effusion with mild left basilar atelectasis. Dictated by Suhas Espinoza MD @ 07/05/2023 9:51:20 AM Dictated by: Suhas Espinoza MD @ 07/05/2023 09:51:27 (Electronically Signed) Ordering Physician: Jemima Hu M.D. Date of Service: 07/04/23 Procedure(s): US abdomen limited Accession Number(s): [id number] cc: Jemima Hu M.D.; Provider,Not a Local~ For Patients: As a result of the s Act, medical imaging exams and procedure reports are released immediately into your electronic medical record. You may view this report before your referring provider. If you have questions, please contact your health care provider. INDICATION: Nausea COMPARISON: none TECHNIQUE: Real time garcia scale imaging and color Doppler analysis was performed of the right upper quadrant. FINDINGS: The patient`s liver is of normal size and has uniform echogenicity. Normal IVC. Aorta measures 2.2 cm with intimal thickening. There is no evidence of ascites. The gallbladder is of normal size and there are layering echogenic stones present. The gallbladder wall measures 1.6 mm in thickness. The common bile duct is of normal size and measures 2.5 mm in diameter at the level of the norberto hepatis. The pancreas appears normal. There is no evidence of a stone or hydronephrosis within the right kidney. The right kidney measures cm in length. IMPRESSION: Cholelithiasis. No biliary obstruction. Atherosclerotic disease. Dictated by Víctor Abraham MD @ 07/05/2023 2:36:13 PM (Electronically Signed)
[2023-07-05] MEDS: LACTATED RINGERS 500 ML 500 ML IV (15:44)
[2023-07-05 15:45] VITALS: BP 151/79; PULSE 80; RESP 20; TEMP 36.5; O2SAT 95
[2023-07-05] MEDS: ONDANSETRON ODT 4 MG TAB PO (16:07)
--- NOTE | 2023-07-05 16:09 | PC.NURSE ---
End of shift-- Very pleasant and cooperative, alert and oriented patient. VSS and pt is afebrile. SPO2 maintained >90% on 1L per n.c. at rest and with O2 increased to 4L with exertion. This morning, patient c/o chest pressure which she stated was not pain, but patient doubled over grasping her chest. MD was notified and EKG was completed. Pt was given ASA and labs were drawn per MD orders. Pt has a frequent, moist, barking cough with occasional sputum. A few fine crackles noted in bases of lungs, but primarily they sound diminished. Difficult to assess r/t frequent coughing. She denied nausea, but ate only a popsicle today. Family planning to bring her dinner this evening. Pt had 1 loose BM today and voided only once. She was up to the BR with SBA and tolerated it fair, but patient is weak and woozy on her feet. Per patient request, family was asked to limit their visits to allow patient to rest. Report to Kenia English RN.
[2023-07-05] MEDS: cefTRIAXone 1 GM in 0.9 % SODIUM CHLORIDE Mini-bag 100 ML IVPB (17:12)
[2023-07-05] MEDS: AZITHROMYCIN 250 MG TABLET PO (17:12)
[2023-07-05] MEDS: RIVAROXABAN 10 MG TABLET 20 MG PO (17:13)
--- NOTE | 2023-07-05 18:16 | PC.NURSE ---
Shift [id number]- Patient displays interest in eating salmon and potatoes brought by family. She eats a salmon portion around the size of a deck of cards and an equal or greater portion of potatoes. Daughter indicates this is a lot more than she has eaten recently. Patient states she is feeling better and she is more interactive this afternoon/evening. Occasional wet sounding cough. Declines to get out of bed.
[2023-07-05 19:20] VITALS: BP 121/72; PULSE 80; RESP 16; TEMP 36.7; O2SAT 90
[2023-07-05 23:00] VITALS: BP 129/66; PULSE 78; PULSE 80; RESP 16; TEMP 37.2; O2SAT 90; O2SAT 93
[2023-07-06] VITALS (8 sets, daily range): BP systolic 127–170; BP diastolic 69–95; PULSE 74–84; RESP 16–22; TEMP 36.5–37; O2SAT 88–96; BMI 18.1
[2023-07-06] MEDS: ACETAMINOPHEN 325 MG TABLET 650 MG PO ×4 (04:43→21:55)
--- NOTE | 2023-07-06 05:51 | PC.NURSE ---
End of shift [id number]: Pt A&O x4, VSS and afebrile throughout the night. Ax1 with GB & 2ww ambulating to the BR. Pt continued to c/o intermittent chest pressure with harsh coughing- MD aware. Scheduled Tylenol given per AUG. PIV in left FA SL and C/D/I. Per pt request; only one visitor is allowed to rotate with , all visitors should stop at nurse?s desk before entering room. Per MD, give PRN zofran before meals to prevent nausea & encourage PO intake. Total output: 500 mL clear, vivi in color. Pt had x1 incontinent, loose, mucous BM. TEDs removed @ 0500 d/t being soiled. ?Pt was able to wean off of supplemental O2, SATs reading 91-93% on RA during spot checks.
[2023-07-06 06:16] LABS: Hematocrit 36.2 % (33.0-51.0); Hemoglobin* 11.4 gm/dL (12.0-16.0); Mean Corpuscular HGB Conc 32 gm/dL (32-36); Mean Corpuscular Hemoglobin 31 pg (26-34); Mean Corpuscular Volume 97 fL (80-100); Platelet Count* 485 K/uL (140-440); Red Blood Count 3.74 m/uL (4.00-5.20); White Blood Count* 8.32 K/uL (4.50-11.00)
[2023-07-06 06:27] LABS: Slide Review Reflex No
[2023-07-06 06:30] LABS: Chloride* 101 mmol/L (96-114); Potassium* 3.9 mmol/L (3.6-5.1); Sodium* 133 mmol/L (135-149)
[2023-07-06 06:33] LABS: Anion Gap 8 mEq/L (7-15); Blood Urea Nitrogen* 18 mg/dL (7-30); Carbon Dioxide* 24 mmol/L (20-32); Creatinine* 0.9 mg/dL (0.5-1.5); Est. Creatinine Clearance* 35.28; Estimated Glomerular Filt Rate 63 ml/min; Glucose* 90 mg/dL (60-115)
[2023-07-06 06:34] LABS: Calcium* 7.9 mg/dL (8.4-10.6)
[2023-07-06] MEDS: OMEPRAZOLE 20 MG CAPSULE DR PO ×2 (08:28→21:50)
[2023-07-06] MEDS: METOPROLOL SUCCINATE (XL) 50 MG TAB PO (08:28)
[2023-07-06] MEDS: BENZONATATE 100 MG CAPSULE PO ×3 (08:29→21:49)
[2023-07-06] MEDS: MONTELUKAST 10 MG TABLET PO (08:31)
[2023-07-06] MEDS: SODIUM CHLORIDE 0.9 % (FLUSH) 10 ML SYRINGE 5 ML IVF ×2 (08:31→21:49)
--- NOTE | 2023-07-06 12:26 | P.IMPN_ITS ---
Progress Note: A&P Assessment and plan (1) Pneumonia: Problem details: - 07/04: Infiltrate in the right lower lobe on x-ray, recent influenza. Start antibiotics for probable bacterial pneumonia associated with influenza. - 07/05: some improvement in alertness. - 07/06: Continue ceftriaxone and azithromycin. Status: Acute (2) Influenza A: Problem details: -completed: oseltamivir dosed for decreased renal function, last dose was yesterday morning. -schedule Tylenol for aches and pains, lidocaine patch for right hip pain, Vistaril p.r.n., ice and/or heat p.r.n.. Plain film of right hip negative for acute fractures or findings. Related to acute viral illness, improving. Status: Resolved (3) Hyponatremia: Problem details: -stable in setting of poor oral intake. -continue to monitor Status: Acute (4) Hypoxia: Problem details: - Able to wean to RA this morning. - secondary to pneumonia. Status: Acute (5) Dehydration: Status: Acute (6) Acute kidney injury: Problem details: -suspect from dehydration -creatinine improving at 0.9, down from 1.6, continue to monitor Status: Acute (7) Chest pain: Problem details: Completely reproducible with palpation to chest, suspect costochondritis. Patient would not be able to tolerate NSAIDs at this point due to nausea. Use as needed ice or heat. Status: Acute (8) Severe malnutrition: Problem details: - protein-calorie: loss of muscle mass, very weak. BMI 18, many days of very poor oral intake. -encouraging increasing oral intake, fluids, good dietary choices 07/03: Discussed malnutrition in setting of poor oral intake with automatic grinding machine operator. My concern is that patient is not making an effort to eat. Nursing staff will continue to get patient out of bed and order small meals frequently throughout the day documenting oral intake. If this fails, patient is aware she may need an NG tube for tube feedings. - 07/04: Patient endorses nausea. Was recently on Tamiflu which may have contributed to this, but last dose was yesterday morning. I suspect her nausea will improve now that she is no longer taking this and should be improving from recent influenza infection. Additionally I will add omeprazole b.i.d. and I have asked nursing staff to use Zofran before meals. I have encouraged the patient to take even just a few bites with each meal. Will do further workup which include labs, including lipase given epigastric tenderness, and right upper quadrant ultrasound. - 07/05: Oral intake remains very poor. Will continue to try Zofran and I asked the family to go home and make a home cooked meal to bring it in to see if she would eat that. If we are not successful, then will plan for Dobbhoff tube feedings tomorrow. - 07/06: Start dobhoff tube feeds today. Status: Acute Plan Patient has been having diarrhea. C diff negative 07/05. VTE prophylaxis with rivaroxaban (h/o PE with cor pulmonale). Barriers to discharge include: poor nutritional intake, poor effort for ADLs. Time Spent With Patient Total time spent: Today I spent 35 minutes rounding on the patient. Greater than 50% included discussing care with patient and her , discussing care with the team, reviewing data, updating and managing the care plan. Subjective Time Seen by Provider: 08:07 Date Seen: 07/06/23 Interval history: Sarah ate a bit of salmon last night, more than she has of anything else, but her appetitie remains poor overall. CP has resolved. Denies SOB. Exam Narrative: Exam Narrative: General: No acute distress. Sleeping, arousable, oriented. Very weak. Thin. Oropharynx: Clear. Mucous membranes moist. Cardiovascular: Regular rate and rhythm. No murmurs, gallops, or rubs. Respiratory: Crackles at right base. No wheezes. Abdomen: Bowel sounds present. Soft, nondistended, nontender. Extremities: No pedal edema. Const: Vital Signs, click to edit/add: Vital Signs - 24 hr 07/05/23 15:45 07/05/23 15:45 07/05/23 19:20 Temperature 97.7 F 98.1 F Pulse Rate [Pulse Oximeter] 80 80 Respiratory Rate 20 16 Blood Pressure [Le ft Arm] 151/79 H 121/72 Blood Pressure [Ri ght Arm] Pulse Oximetry 95 95 90 Oxygen Delivery Me thod Nasal Cannula Nasal Cannula Nasal Cannula Oxygen Flow Rate 1 1 1 07/05/23 23:00 07/05/23 23:00 07/05/23 23:00 Temperature 99 F Pulse Rate [Pulse Oximeter] 80 78 Respiratory Rate 16 16 16 Blood Pressure [Le ft Arm] Blood Pressure [Ri ght Arm] 129/66 Pulse Oximetry 90 93 Oxygen Delivery Me thod Nasal Cannula Nasal Cannula Oxygen Flow Rate 1 1 07/06/23 03:00 07/06/23 03:24 07/06/23 07:00 Temperature 98.1 F 98.1 F Pulse Rate [Pulse Oximeter] 77 79 Respiratory Rate 16 18 Blood Pressure [Le ft Arm] Blood Pressure [Ri ght Arm] 146/73 H 146/69 H Pulse Oximetry 96 93 90 Oxygen Delivery Me thod Nasal Cannula Room Air Room Air Oxygen Flow Rate 1 07/06/23 07:00 07/06/23 11:00 Temperature 98.1 F Pulse Rate [Pulse Oximeter] 84 Respiratory Rate 20 Blood Pressure [Le ft Arm] Blood Pressure [Ri ght Arm] 127/95 H Pulse Oximetry 90 88 Oxygen Delivery Me thod Room Air Room Air Oxygen Flow Rate Labs Labs: Laboratory Results - last 24 hr 07/05/23 07/06/23 12:40 05:45 WBC 8.32 RBC 3.74 L Hgb 11.4 L Hct 36.2 MCV 97 MCH 31 MCHC 32 Plt Count 485 H Sodium 133 L Potassium 3.9 Chloride 101 Carbon Dioxide 24 Anion Gap 8 BUN 18 Creatinine 0.9 Estimated Creat Clear 35.28 Estimated GFR 63 Glucose 90 Calcium 7.9 L Stl C. diff Tox B Gene Negative Stl C. diff 027-NAP1-BI PRESUMPTIVE NEGATIVE
--- NOTE | 2023-07-06 12:45 | CRLHL7_ITS ---
For Patients: As a result of the Century Cures Act, medical imaging exams and procedure reports are released immediately into your electronic medical record. You may view this report before your referring provider. If you have questions, please contact your health care provider. INDICATION: Confirm NG placement. TECHNIQUE: Chest 1 view. COMPARISON: 07/05/2023. FINDINGS: Devices: Feeding tube distal tip is coiled in the esophagus. The tip is about 6 cm above the gastroesophageal junction. Unchanged appearance of the lung bases. No dilated bowel in the upper abdomen. IMPRESSION: Feeding tube distal tip is coiled in the esophagus. Dictated by Alexandra Garrett MD @ 07/06/2023 2:51:28 PM (Electronically Signed)
--- NOTE | 2023-07-06 15:38 | CRLHL7_ITS ---
For Patients: As a result of the Century Cures Act, medical imaging exams and procedure reports are released immediately into your electronic medical record. You may view this report before your referring provider. If you have questions, please contact your health care provider. Indication: NG TUBE PLACEMENT Technique: Abdomen 1 view. Comparison: Same day radiograph Findings/Impression: The coiled enteric tube overlies the lower thorax with tip projecting to the right of midline. Unchanged appearance of the lung bases. No bowel obstruction. Degenerative changes of the lumbar spine. Dictated by Masood Hurtado MD @ 07/06/2023 4:27:49 PM (Electronically Signed)
[2023-07-06] MEDS: cefTRIAXone 1 GM in 0.9 % SODIUM CHLORIDE Mini-bag 100 ML IVPB (17:05)
[2023-07-06] MEDS: AZITHROMYCIN 250 MG TABLET PO (17:05)
[2023-07-06] MEDS: RIVAROXABAN 10 MG TABLET 20 MG PO (17:05)
--- NOTE | 2023-07-06 18:55 | PC.NURSE ---
End of shift [id number]: Pt A&O x4, VSS and afebrile this afternoon. Remains on 0.5L NC to maintain > 90% O2 sats. Pt c/o left nare pain r/t NG tube insertion. She also c/o mild dizziness with ambulation. PIV in left FA leaking so a new 20g in right FA was placed and previous one was removed. The previous shift, pt had NG inserted in left nare to 48 cm. XR read that the tube was coiled in the esophagus so procedure writer adjusted the NG tube and re-inserted to 48 cm on arrival. XR report read that it was coiled in the thorax and tip was to the right of her midline. Rate Clerk Passenger discussed with Dr. Sanchez and received verbal orders to pull NG tube back to 40 cm and then advance 2cm every hour until the goal of 48 cm is reached. Once we are at 48 cm again, a repeat XR will be obtained. If NG tube is in correct placement; tube feeds can begin but if the tube is coiled again; we will discontinue and encourage PO intake. Pt is aware of this plan and in agreement. Tube was advanced to 43 cm @ 1700 > 46 cm @ 1800 and 48 cm @ 1900; awaiting XR read. Pt had x1 incontinent/continent loose BM this afternoon. TEDs in place. Tube feed order: [employer] 1.5 @ 20cc/hr with 90cc free water flush every 4 hours.
--- NOTE | 2023-07-06 19:08 | CRLHL7_ITS ---
For Patients: As a result of the Century Cures Act, medical imaging exams and procedure reports are released immediately into your electronic medical record. You may view this report before your referring provider. If you have questions, please contact your health care provider. Indication: Nasogastric tube placement. Technique: Abdomen 1 view. Comparison: Prior radiographs from 07/06/2023. Findings/Impression: Feeding tube is in similar position, tip projects over the right heart border, likely within the distal esophagus or a hiatal hernia. Nonobstructive bowel gas pattern. Multilevel degenerative changes of the spine. Bilateral sacroiliac joint osteoarthritis. Dictated by Toya York MD @ 07/06/2023 9:34:38 PM (Electronically Signed)
--- NOTE | 2023-07-06 21:44 | PM.EN ---
Chart Event Note Date Seen: 07/06/23 Chart Event Note: Repeated attempts to place and reposition feeding tube were unsuccessful. Feeding tube appears to coil up in what is probably a dilated distal esophagus or hiatal hernia. If still desired to have feeding tube discuss endoscopic placement or IR assistance.
[2023-07-06] MEDS: MELATONIN 3 MG TABLET PO (22:54)
[2023-07-07 03:52] VITALS: BP 184/82; PULSE 85; RESP 24; TEMP 36.8; O2SAT 92
[2023-07-07] MEDS: ACETAMINOPHEN 325 MG TABLET 650 MG PO ×3 (03:54→22:30)
[2023-07-07] MEDS: BENZOCAINE/MENTHOL 1 EACH LOZENGE MUCOUS MEM (04:34)
--- NOTE | 2023-07-07 04:57 | PC.NURSE ---
[id number]: Patient cooperative with cares. Denies pain. Afebrile. SBA. Notably SOB w/activity. 0.5 L NC to maintain O2 sats >88. Intermittent productive cough. Encouraged IS use. Denies CP/pain. Melatonin administered for sleep per patient request with moderate results.
[2023-07-07 06:37] LABS: Hematocrit 35.2 % (33.0-51.0); Hemoglobin* 11.2 gm/dL (12.0-16.0); Mean Corpuscular HGB Conc 32 gm/dL (32-36); Mean Corpuscular Hemoglobin 30 pg (26-34); Mean Corpuscular Volume 96 fL (80-100); Platelet Count* 529 K/uL (140-440); Red Blood Count 3.68 m/uL (4.00-5.20); White Blood Count* 9.61 K/uL (4.50-11.00)
[2023-07-07 06:39] LABS: Slide Review Reflex No
[2023-07-07 06:59] LABS: Chloride* 102 mmol/L (96-114); Potassium* 3.7 mmol/L (3.6-5.1); Sodium* 134 mmol/L (135-149)
[2023-07-07 07:00] VITALS: BP 157/82; PULSE 77; RESP 24; TEMP 36.7; O2SAT 95
[2023-07-07 07:02] LABS: Anion Gap 8 mEq/L (7-15); Blood Urea Nitrogen* 15 mg/dL (7-30); Carbon Dioxide* 24 mmol/L (20-32); Creatinine* 0.8 mg/dL (0.5-1.5); Est. Creatinine Clearance* 35.28; Estimated Glomerular Filt Rate 73 ml/min; Glucose* 96 mg/dL (60-115)
[2023-07-07] MEDS: BENZONATATE 100 MG CAPSULE PO ×4 (08:33→20:26)
[2023-07-07] MEDS: METOPROLOL SUCCINATE (XL) 50 MG TAB PO (08:33)
[2023-07-07] MEDS: OMEPRAZOLE 20 MG CAPSULE DR PO ×2 (08:33→20:27)
[2023-07-07] MEDS: MONTELUKAST 10 MG TABLET PO (08:36)
[2023-07-07] MEDS: SODIUM CHLORIDE 0.9 % (FLUSH) 10 ML SYRINGE 5 ML IVF ×2 (08:37→20:26)
--- NOTE | 2023-07-07 09:36 | CRLHL7_ITS ---
For Patients: As a result of the Century Cures Act, medical imaging exams and procedure reports are released immediately into your electronic medical record. You may view this report before your referring provider. If you have questions, please contact your health care provider. INDICATION: Failure to thrive. Nasogastric tube placement for nutritional purposes. PROCEDURE: Informed consent was obtained. The patient agreed to proceed. Under fluoroscopic guidance, utilizing lidocaine jelly in the right nasal passage as well as a topical anesthetic spray to the back of the throat, an 8-Angolan feeding tube was advanced from the right nasal passage into the stomach without significant difficulty. The patient tolerated the procedure well. The tube is identified in the mid stomach with its tip coiled back upon itself. 3 minutes 20 seconds fluoroscopy time utilized. IMPRESSION: Successful placement of an 8-Angolan feeding tube into the stomach under fluoroscopic guidance. Dictated by Kristofer Marrero MD @ 07/07/2023 3:30:05 PM (Electronically Signed)
[2023-07-07 13:30] VITALS: BP 151/78; PULSE 77; RESP 20; TEMP 36.5; O2SAT 92
--- NOTE | 2023-07-07 14:41 | P.IMPN_ITS ---
Progress Note: A&P Assessment and plan (1) Pneumonia: Problem details: - 07/04: Infiltrate in the right lower lobe on x-ray, recent influenza. Start antibiotics for probable bacterial pneumonia associated with influenza. - 07/05: some improvement in alertness. - 07/06: Continue ceftriaxone and azithromycin. Status: Acute (2) Influenza A: Problem details: -completed: oseltamivir dosed for decreased renal function, last dose was yesterday morning. -schedule Tylenol for aches and pains, lidocaine patch for right hip pain, Vistaril p.r.n., ice and/or heat p.r.n.. Plain film of right hip negative for acute fractures or findings. Related to acute viral illness, improving. Status: Resolved (3) Hyponatremia: Problem details: -stable in setting of poor oral intake. -continue to monitor Status: Acute (4) Hypoxia: Problem details: - Needing 0.5-1 LPM via NC. - secondary to pneumonia. Status: Acute (5) Dehydration: Problem details: At risk until able to take adequate PO or fluid through feeding tube. Status: Resolved (6) Acute kidney injury: Problem details: -suspect from dehydration -creatinine improving at 0.8, down from 1.6, continue to monitor Status: Acute (7) Chest pain: Problem details: Completely reproducible with palpation to chest, suspect costochondritis. Patient would not be able to tolerate NSAIDs at this point due to nausea. Use as needed ice or heat. Status: Resolved (8) Severe malnutrition: Problem details: - protein-calorie: loss of muscle mass, very weak. BMI 18, many days of very poor oral intake. -encouraging increasing oral intake, fluids, good dietary choices 07/03: Discussed malnutrition in setting of poor oral intake with slicing machine operator. My concern is that patient is not making an effort to eat. Nursing staff will continue to get patient out of bed and order small meals frequently throughout the day documenting oral intake. If this fails, patient is aware she may need an NG tube for tube feedings. - 07/04: Patient endorses nausea. Was recently on Tamiflu which may have contributed to this, but last dose was yesterday morning. I suspect her nausea will improve now that she is no longer taking this and should be improving from recent influenza infection. Additionally I will add omeprazole b.i.d. and I have asked nursing staff to use Zofran before meals. I have encouraged the patient to take even just a few bites with each meal. Will do further workup which include labs, including lipase given epigastric tenderness, and right upper quadrant ultrasound. - 07/05: Oral intake remains very poor. Will continue to try Zofran and I asked the family to go home and make a home cooked meal to bring it in to see if she would eat that. If we are not successful, then will plan for Dobbhoff tube feedings tomorrow. - 07/07: IR to place feeding tube NG. Start tube feeds today as able. Status: Acute Plan C diff negative 07/05. VTE prophylaxis with rivaroxaban (h/o PE with cor pulmonale). Barriers to discharge include: poor nutritional intake, poor effort for ADLs. Obtain MOCA when able. Time Spent With Patient Total time spent: Today I spent 45 minutes rounding on the patient. Greater than 50% included discussing care with patient, discussion with radiologist, discussion with patient's and daughter, discussing care with the team, reviewing data, updating and managing the care plan. Subjective Time Seen by Provider: 09:29 Date Seen: 07/07/23 Interval history: Multiple attempts to place a weighted NG feeding tube yesterday were unsuccessful. I spoke with Sarah and she noted how uncomfortable it was. Our radiologist was willing to try inserting it with fluoroscopic guidance. Sarah agreed. I also had an extensive discussion with her and daughter about FTT and they noted how she has dwindled over the past year. She denies CP or SOB. Exam Narrative: Exam Narrative: General: No acute distress. Sleeping, arousable, oriented. Very weak. Thin. Oropharynx: Clear. Mucous membranes dry. Cardiovascular: Regular rate and rhythm. No murmurs, gallops, or rubs. Respiratory: Crackles at right base, unchanged. No wheezes. Abdomen: Bowel sounds present. Soft, nondistended, nontender. Extremities: No pedal edema. Const: Vital Signs, click to edit/add: Vital Signs - 24 hr 07/06/23 15:00 07/06/23 15:00 07/06/23 15:00 Temperature 97.7 F Pulse Rate [Pulse Oximeter] 83 83 Respiratory Rate 18 18 18 Blood Pressure [Le ft Arm] Blood Pressure [Ri ght Arm] 143/70 H Pulse Oximetry 92 92 Oxygen Delivery Me thod Nasal Cannula Nasal Cannula Oxygen Flow Rate 0.5 0.5 07/06/23 20:24 07/06/23 21:59 07/06/23 23:00 Temperature 98.6 F 97.8 F Pulse Rate [Pulse Oximeter] 74 78 Respiratory Rate 20 22 22 Blood Pressure [Le ft Arm] Blood Pressure [Ri ght Arm] 157/81 H 170/77 H Pulse Oximetry 95 95 95 Oxygen Delivery Me thod Nasal Cannula Nasal Cannula Nasal Cannula Oxygen Flow Rate 0.5 0.5 0.5 07/07/23 03:52 07/07/23 07:00 07/07/23 07:00 Temperature 98.2 F 98.1 F Pulse Rate [Pulse Oximeter] 85 77 Respiratory Rate 24 24 24 Blood Pressure [Le ft Arm] 157/82 H Blood Pressure [Ri ght Arm] 184/82 H Pulse Oximetry 92 95 95 Oxygen Delivery Me thod Nasal Cannula Nasal Cannula Nasal Cannula Oxygen Flow Rate 0.5 0.5 0.5 07/07/23 13:30 Temperature 97.7 F Pulse Rate [Pulse Oximeter] 77 Respiratory Rate 20 Blood Pressure [Le ft Arm] 151/78 H Blood Pressure [Ri ght Arm] Pulse Oximetry 92 Oxygen Delivery Me thod Nasal Cannula Oxygen Flow Rate 1 Labs Labs: Laboratory Results - last 24 hr 07/07/23 06:00 WBC 9.61 RBC 3.68 L Hgb 11.2 L Hct 35.2 MCV 96 MCH 30 MCHC 32 Plt Count 529 H Sodium 134 L Potassium 3.7 Chloride 102 Carbon Dioxide 24 Anion Gap 8 BUN 15 Creatinine 0.8 Estimated Creat Clear 35.28 Estimated GFR 73 Glucose 96 Calcium 8.0 L
[2023-07-07 15:00] VITALS: RESP 20; O2SAT 92
[2023-07-07] MEDS: AZITHROMYCIN 250 MG TABLET PO (16:53)
[2023-07-07] MEDS: cefTRIAXone 1 GM in 0.9 % SODIUM CHLORIDE Mini-bag 100 ML IVPB (16:53)
[2023-07-07] MEDS: RIVAROXABAN 10 MG TABLET 20 MG PO (18:25)
--- NOTE | 2023-07-07 18:45 | PC.NURSE ---
End of shift [id number] ? Pt oriented x 4 and fatigued. Standby assist with walker and gait belt to bathroom. Continent of bladder, functionally incontinent of bowels. Pt tolerating 0.5L O2 via nasal cannula to maintain saturation above 88% per MD order. Mild SOB noted with exertion, pt uses appropriate breathing pattern to recover. NG tube feeding initiated today, tubing repeatedly clogged. MD notified, suggested RN flush with air and water. Problem persisted, MD notified and tube feeding d/c?d until 07/08 when process can be reassessed. Pt drank part of ensure clear and ate one container of applesauce during shift. Family at bedside, appears to be resting comfortably at end of shift. ?
[2023-07-07 19:00] VITALS: BP 167/70; PULSE 80; RESP 20; TEMP 36.7; O2SAT 92
[2023-07-07] MEDS: ONDANSETRON ODT 4 MG TAB PO (20:25)
[2023-07-07] MEDS: MELATONIN 3 MG TABLET PO (20:25)
[2023-07-07 23:00] VITALS: PULSE 80; RESP 20; O2SAT 91
[2023-07-08] VITALS (7 sets, daily range): BP systolic 149–188; BP diastolic 75–77; PULSE 72–80; RESP 18–20; TEMP 36.5–36.8; O2SAT 90–93
--- NOTE | 2023-07-08 06:12 | PC.NURSE ---
SHIFT NOTE : Pt pleasant and cooperative, pt requested that she would like to rest overnight, PRN Melatonin given and order received for restful night VS. Pt reports sleeping well. Pt stated she had some nausea at bedtime, no emesis, PRN Zofran given with relief. Pt denied pain, SOB, and CP. Up 1 assist and tolerating well, had one incontinent BM, yohannes care provided. Oxygen saturations in the low 90's on 1L O2. Afebrile.
[2023-07-08 06:34] LABS: Hematocrit 37.2 % (33.0-51.0); Hemoglobin* 11.8 gm/dL (12.0-16.0); Mean Corpuscular HGB Conc 32 gm/dL (32-36); Mean Corpuscular Hemoglobin 31 pg (26-34); Mean Corpuscular Volume 96 fL (80-100); Platelet Count* 620 K/uL (140-440); Red Blood Count 3.87 m/uL (4.00-5.20); White Blood Count* 7.02 K/uL (4.50-11.00)
[2023-07-08 06:41] LABS: Slide Review Reflex No
[2023-07-08 06:49] LABS: Chloride* 101 mmol/L (96-114); Potassium* 3.7 mmol/L (3.6-5.1); Sodium* 137 mmol/L (135-149)
[2023-07-08 06:51] LABS: Creatinine* 0.9 mg/dL (0.5-1.5); Est. Creatinine Clearance* 34.91; Estimated Glomerular Filt Rate 63 ml/min
[2023-07-08 06:52] LABS: Anion Gap 8 mEq/L (7-15); Blood Urea Nitrogen* 13 mg/dL (7-30); Calcium* 8.2 mg/dL (8.4-10.6); Carbon Dioxide* 28 mmol/L (20-32); Glucose* 90 mg/dL (60-115)
[2023-07-08] MEDS: METOPROLOL SUCCINATE (XL) 50 MG TAB PO (08:31)
[2023-07-08] MEDS: SODIUM CHLORIDE 0.9 % (FLUSH) 10 ML SYRINGE 5 ML IVF (08:32)
[2023-07-08] MEDS: MONTELUKAST 10 MG TABLET PO (08:32)
[2023-07-08] MEDS: OMEPRAZOLE 20 MG CAPSULE DR PO ×2 (08:32→21:17)
--- NOTE | 2023-07-08 09:57 | NUTR.NU ---
RDN with follow-up note related to low oral intakes and NG tube feedings. NG tube feeding placement was unsuccessful on 07/06/23. IR successfully placed feeding tube NG on 07/07/23, however per IDT today tube was clogged yesterday PM and will be addressed today. Per MD, MD will discuss next steps with patient and family today. Patient's oral intakes continues to be low, with nursing documenting 100% of applesauce yesterday only. Height 5' 7, Weight 114lb 6oz; BMI 17.9 kg/m2. No changes in nutrition interventions at this time. RDN will continue to monitor and follow-up prn.
--- NOTE | 2023-07-08 15:48 | PC.SOCIAL ---
Discharge planning- Met with pt and pt's to discuss discharge plans. Pt is refusing SNF as she wants to be home with her and family. Pt's is able to provide 24 hour care as needed. Pt has support of her children that will be preparing meals and encouraging pt to eat. Pt is agreeable to home care for PT and OT. Discussed with , MD is agreeable that pt will likely discharge tomorrow with home care. Face to face document was completed. Phone call to Lucia at ext. [phone] with [facility]. Lucia will check on availability and will call this worker back tomorrow morning with a decision. Social work will continue to follow up as needed.
--- NOTE | 2023-07-08 15:54 | PM.IMPN1 ---
Progress Note: A&P Assessment and plan (1) Influenza A: Problem details: -completed: oseltamivir dosed for decreased renal function, last dose was yesterday morning. -schedule Tylenol for aches and pains, lidocaine patch for right hip pain, Vistaril p.r.n., ice and/or heat p.r.n.. Plain film of right hip negative for acute fractures or findings. Related to acute viral illness, improving. Status: Resolved (2) Pneumonia: Problem details: - 07/04: Infiltrate in the right lower lobe on x-ray, recent influenza. Start antibiotics for probable bacterial pneumonia associated with influenza. - 07/05: some improvement in alertness. - 07/06: Continue ceftriaxone and azithromycin. - 07/08: improving. Will try to wean oxygen. Now that she is more alert and stronger, I have asked RT to attempt vibratory pep again. Status: Acute (3) Hypoxia: Problem details: - Needing 0.5-1 LPM via NC. - secondary to pneumonia. This will be a barrier to discharge if going home. Status: Acute (4) Severe malnutrition: Problem details: - protein-calorie: loss of muscle mass, very weak. BMI 18, many days of very poor oral intake. -encouraging increasing oral intake, fluids, good dietary choices 07/03: Discussed malnutrition in setting of poor oral intake with hospital account liaison. My concern is that patient is not making an effort to eat. Nursing staff will continue to get patient out of bed and order small meals frequently throughout the day documenting oral intake. If this fails, patient is aware she may need an NG tube for tube feedings. - 07/04: Patient endorses nausea. Was recently on Tamiflu which may have contributed to this, but last dose was yesterday morning. I suspect her nausea will improve now that she is no longer taking this and should be improving from recent influenza infection. Additionally I will add omeprazole b.i.d. and I have asked nursing staff to use Zofran before meals. I have encouraged the patient to take even just a few bites with each meal. Will do further workup which include labs, including lipase given epigastric tenderness, and right upper quadrant ultrasound. - 07/05: Oral intake remains very poor. Will continue to try Zofran and I asked the family to go home and make a home cooked meal to bring it in to see if she would eat that. If we are not successful, then will plan for Dobbhoff tube feedings tomorrow. - 07/07: IR to place feeding tube NG. Start tube feeds today as able. - 07/08: Feeding tube not functioning. Discussion with patient - patient wants no further attempts at feeding tubes. Encourage PO intake. Patient aware of severe malnutrition, risk of without adequate oral intake. Status: Acute (5) Hyponatremia: Status: Resolved (6) Dehydration: Problem details: Resolved, but at risk until able to take adequate PO. Status: Resolved (7) Acute kidney injury: Problem details: -suspect from dehydration -creatinine stable at 0.9, down from 1.6, continue to monitor Status: Acute (8) Chest pain: Problem details: Completely reproducible with palpation to chest, suspect costochondritis. Patient would not be able to tolerate NSAIDs at this point due to nausea. Use as needed ice or heat. Status: Resolved Plan C diff negative 07/05. VTE prophylaxis with rivaroxaban (h/o PE with cor pulmonale). Barriers to discharge include: hypoxia secondary to pneumonia, poor nutritional intake. MOCA . Time Spent With Patient Total time spent: Today I spent 50 minutes rounding on the patient. Greater than 50% included discussing care with patient and her son, phone discussion with her and children, discussing care with the team, reviewing data, updating and managing the care plan. Subjective Time Seen by Provider: 11:20 Date Seen: 07/08/23 Interval history: Sarah and her son, Kang, were in the room today. She is much more alert, talking more, joking and smiling. Her son also noticed the difference. She does not want any more attempts at feeding tubes. We discussed how she is able to eat and really needs to increase her oral intake. She is already aware of that, but states she is just not hungry. She would like to try low dose mirtazapine. I spoke with her and he and the rest of the family are understanding about her choices. She had alicia a bit of applesauce yesterday. Nothing yet today. Exam Narrative: Exam Narrative: General: No acute distress. Awake, alert, oriented x3. Reached for water and drank of her own volition (without any prompting) while I was talking with her. Weak, although improving. Thin. Oropharynx: Clear. Mucous membranes moist. Cardiovascular: Regular rate and rhythm. No murmurs, gallops, or rubs. Respiratory: Crackles at right base, unchanged. No wheezes. Abdomen: Bowel sounds present. Soft, nondistended, nontender. Extremities: No pedal edema. Const: Vital Signs, click to edit/add: Vital Signs - 24 hr 07/07/23 19:00 07/07/23 23:00 07/07/23 23:00 Temperature 98.1 F Pulse Rate [Pulse Oximeter] 80 80 Respiratory Rate 20 20 20 Blood Pressure [Le ft Arm] Blood Pressure [Ri ght Arm] 167/70 H Pulse Oximetry 92 91 Oxygen Delivery Me thod Nasal Cannula Nasal Cannula Oxygen Flow Rate 1 1 07/07/23 23:00 07/08/23 03:00 07/08/23 06:00 Temperature Pulse Rate [Pulse Oximeter] Respiratory Rate 20 18 18 Blood Pressure [Le ft Arm] Blood Pressure [Ri ght Arm] Pulse Oximetry 91 Oxygen Delivery Me thod Nasal Cannula Oxygen Flow Rate 1 07/08/23 07:00 07/08/23 07:00 Temperature 97.7 F Pulse Rate [Pulse Oximeter] 76 Respiratory Rate 20 20 Blood Pressure [Le ft Arm] 149/75 H Blood Pressure [Ri ght Arm] Pulse Oximetry 93 93 Oxygen Delivery Me thod Nasal Cannula Nasal Cannula Oxygen Flow Rate 0.5 0.5 Labs Labs: Laboratory Results - last 24 hr 07/08/23 06:00 WBC 7.02 RBC 3.87 L Hgb 11.8 L Hct 37.2 MCV 96 MCH 31 MCHC 32 Plt Count 620 H Sodium 137 Potassium 3.7 Chloride 101 Carbon Dioxide 28 Anion Gap 8 BUN 13 Creatinine 0.9 Estimated Creat Clear 34.91 Estimated GFR 63 Glucose 90 Calcium 8.2 L
[2023-07-08] MEDS: BENZONATATE 100 MG CAPSULE PO ×2 (18:46→21:16)
[2023-07-08] MEDS: AZITHROMYCIN 250 MG TABLET PO (18:46)
[2023-07-08] MEDS: cefTRIAXone 1 GM in 0.9 % SODIUM CHLORIDE Mini-bag 100 ML IVPB (18:47)
[2023-07-08] MEDS: RIVAROXABAN 10 MG TABLET 20 MG PO (18:47)
--- NOTE | 2023-07-08 20:22 | PC.NURSE ---
End of shift [id number] - Pt alert, oriented x4, and cooperative to care. Up with standby assistance and walker to bathroom and noted to walk in halls with PT. Tolerating 0.5L O2 via nasal cannula. Mild SOB noted on exertion with pt recovering appropriately. VSS, afebrile. Pt denies pain, nausea, dizziness. Pt tolerating food PO, noted to eat ice cream and applesauce. NG tube removed, catheter and R nare intact. Pt expressed excitement regarding possible d/c, at bedside noted increase in pt appetite. Pt observed to sleep during shift, appears to be resting comfortably with family at bedside during shift.
[2023-07-08] MEDS: MIRTAZAPINE 15 MG TABLET 7.5 MG PO (21:16)
[2023-07-09] VITALS (7 sets, daily range): BP systolic 155–170; BP diastolic 61–75; PULSE 77–81; RESP 16–20; TEMP 36.3–36.8; O2SAT 79–92
--- NOTE | 2023-07-09 00:10 | PC.NURSE ---
UP with assist, bm incont x1. Excited to go home tomorrow.
[2023-07-09] MEDS: BENZONATATE 100 MG CAPSULE PO (08:10)
[2023-07-09] MEDS: OMEPRAZOLE 20 MG CAPSULE DR PO (08:11)
[2023-07-09] MEDS: SODIUM CHLORIDE 0.9 % (FLUSH) 10 ML SYRINGE 5 ML IVF (08:12)
[2023-07-09] MEDS: METOPROLOL SUCCINATE (XL) 50 MG TAB PO (08:12)
[2023-07-09] MEDS: MONTELUKAST 10 MG TABLET PO (08:12)
[2023-07-09] MEDS: cefuroxime axetiL 500 MG TABLET PO (08:38)
--- NOTE | 2023-07-09 10:14 | RESP.3PART ---
3 Part Home O2 Testing Summary RT 3 Part Home O2 Testing Summary Start: 07/09/23 10:11 Freq: Status: Active Protocol: Document 07/09/23 10:13 JESUS (Rec: 07/09/23 10:14 JESUS [id number]) 3 Part Home O2 Testing Summary The following is a summary of the 3 Part O2 Testing Evaluation Date/Time of Testing Date 07/09/23 Time 10:10 Insurance Policy Number [id number] Step 1 SAT on room air at rest (%) 92 Step 2 SAT on room air while exercising (%) 79 Step 3 SAT on supplemental O2 while exercising 90 (%) Liters of supplemental O2 needed while 4 exercising (L) O2 Delivery O2 delivered via Nasal Cannula Comments Comments Patient SAT on room air at rest is 92% and does not require supplemental O2 at this time. Patient SAT on room air with activity is 79% and requires 4L NC to keep SAT at 90%.
[2023-07-09] MEDS: ACETAMINOPHEN 325 MG TABLET 650 MG PO (11:01)
[2023-07-09] MEDS: LIDOCAINE 5% PATCH 1 PATCH TRANSDERMA (12:15)
--- NOTE | 2023-07-09 12:39 | PC.SOCIAL ---
Addendum entered by KATT Mcdonnell 07/09/23 13:53: Confirmed with pt and pt's that tomorrow at 12:00 pm will work for a home care visit with nursing staff. Provided confirmation to [facility]. Original Note: Discharge planning- Received a phone call from [facility] (Lucia) informing that they can accept pt for home care PT, OT, and LIGHTING EQUIPMENT OPERATOR. A nurse will open services tomorrow 07/10/23 at 12:00 pm in the home. Secure e-mailed the face to face for home health orders to [facility]. Provided update to family on home care. Provided pt and pt's with a copy of the medicare rights form to appeal hospital discharge if they desired. Pt does not want to appeal her discharge. Pt's primary care provider is Perla Hernandez MD, at [facility] in [place]. Social work will follow up as needed.
--- NOTE | 2023-07-09 14:26 | PC.NURSE ---
Patient pleasant, alert and cooperative. Transferred and ambulated with standby assist of one. O2 sats decreased to 87% when ambulating to bathroom this morning. Tolerated applesauce for breakfast. Denied any pain. Patient discharged at 1340. Accompanied by son and daughter. Staff wheeled patient to main entrance. Family assisted patient from wheelchair to car.
--- NOTE | 2023-07-09 14:32 | PM.DS1 ---
DS: Providers Provider Date Seen: 07/09/23 Date of admission: 06/29/23 20:49 Primary care physician: Not a Local Provider Admitting Clinician: Jimmy Ricardo MD Consults: 06/29/23 20:49 Consult to Nutrition [CONS] Routine Comment: Reason for consult:: Miscellaneous Comment: hyponatremia 07/02/23 09:43 Consult to Occupational Therapy [CONS] Routine Comment: Reason(s) for OT Consult:: Evaluate and Treat Any Restrictions?:: No Restrictions Consult to Physical Therapy [CONS] Routine Comment: Reason(s) for PT Consult:: Evaluate and Treat Any Restrictions?:: No Restrictions Attending Physician on discharge: Kari Carrillo MD [facility] Date of Discharge: 07/09/23 DS: Diagnosis Discharge Diagnosis (1) Chronic hypoxic respiratory failure: Status: Acute Problem details: -likely will be chronic oxygen dependent secondary to chronic fibrosis. She has had a history recent influenza and pneumonia. She has a previous history of asthma whole lung decortication and bronchiectasis. -qualified for home O2 with up to 3 L needed with exertion. 0-1 L rest. (2) Pneumonia: Status: Acute Problem details: -right lower lobe. In the setting of influenza. Previously treated with Tamiflu. -treated with 5 days of azithromycin and 5 days of IV ceftriaxone. Five more days of oral O Ceftin -home O2 -continue pulmonary hygiene (3) Severe malnutrition: Status: Acute Problem details: -54.9 kg in January 2023 at Cardiology appt -admit weight with this admission: 54.4. Discharge weight 07/09/23 is 52.16. -attempted feeding tube for acute care; not succssful or tolerated. -mirtazapine in the evenings and Zofran before meals -continue to monitor as an outpatient (4) Acute kidney injury: Status: Acute Problem details: -likely prerenal. Resolved. (5) Hyponatremia: Status: Resolved Problem details: -resolved (6) Influenza A: Status: Resolved Problem details: Completed Tamiflu as an inpatient DS: Summary Hospital Course Hospital Course: FINAL DIAGNOSIS/FOLLOW UP ISSUES: 1. Influenza a and bacterial pneumonia-received Tamiflu as an inpatient as well as azithromycin and ceftriaxone. Discharged on Ceftin. Discharged on home O2. 2. Poor appetite; protein malnutrition. Total net loss during this hospitalization was 5 lb. BMI 18. 3. GAMALIEL, resolved. Hyponatremia, resolved. BRIEF HOSPITAL COURSE: Patient was admitted for 12 days. Synopsis of acute inpatient issues are outlined above. Chronic medical conditions with notable findings outlined above. Pt presented hypoxic and positive for Influenza A. [place] poorly and stopped eating. Lost 5lbs while she was here. She remained on oxygen thru most of her stay. DX with pneumonia after Tamiflu treatment. Treated with antibiotics. Slowly improved and started eating minimally. Pt requested disharche and we arranged on 07/09. Home oxygen prescribed, oral antibiotics. We held her chlorthalidone and she was discharged on mirtazapine and Zofran to help her appetite. DISCHARGE MEDICATIONS: See Reconciled list - SIGNIFICANT CHANGES: Mirtazapine Zofran Ceftin Home O2 HOLD CHLORTHALIDONE Specific instructions to the patient and follow-up are outlined below. REVIEW OF SYSTEMS No new chest pain or dyspnea Pain controlled No voiding difficulties Tolerating diet challenge PHYSICAL EXAM: CONSTITUTIONAL: Alert making her wishes known. Wet cough noted. Hypoxic only with exertion. VITAL SIGNS: see record. HEENT: Normocephalic, atraumatic. PERRL, EOMI, conjunctivae pink, no scleral icterus. Ears and nose externally normal. Pharynx normal. NECK: No JVD. No carotid bruit, no thyromegaly, no adenopathy. CHEST: Clear to auscultation bilaterally. HEART: S1 and S2 normal. Edema minimal ABDOMEN: Soft, nontender. Normal bowel sounds. MUSCULOSKELETAL: No gross joint deformity or swelling. NEURO: Cranial nerves intact. Grossly intact. No asymmetric findings. SKIN: No rashes, petechiae, concerning changes PSYCHIATRIC: Mood euthymic. DISPOSITION: Home with family Time spent on discharge 37 minutes. Time Spent with Patient Time attestation: Total time spent providing and/or coordinating discharge services: Exam Const: Vital Signs, click to edit/add: Vital Signs - 24 hr 07/08/23 15:00 07/08/23 15:00 07/08/23 21:00 Temperature 98.2 F Pulse Rate [Pulse Oximeter] 72 Respiratory Rate 20 20 18 Blood Pressure [Le ft Arm] Blood Pressure [Ri ght Arm] 171/75 H Pulse Oximetry 93 93 Oxygen Delivery Me thod Nasal Cannula Nasal Cannula Oxygen Flow Rate 0.5 0.5 07/08/23 23:00 07/08/23 23:00 07/08/23 23:00 Temperature 98.2 F Pulse Rate [Pulse Oximeter] 80 Respiratory Rate 18 18 18 Blood Pressure [Le ft Arm] Blood Pressure [Ri ght Arm] 188/77 H Pulse Oximetry 90 90 Oxygen Delivery Me thod Nasal Cannula Nasal Cannula Oxygen Flow Rate 0.5 0.5 07/08/23 23:30 07/09/23 03:00 07/09/23 06:00 Temperature Pulse Rate [Pulse Oximeter] Respiratory Rate 18 16 16 Blood Pressure [Le ft Arm] Blood Pressure [Ri ght Arm] Pulse Oximetry Oxygen Delivery Me thod Oxygen Flow Rate 07/09/23 07:00 07/09/23 07:37 07/09/23 07:39 Temperature 98.3 F Pulse Rate [Pulse Oximeter] 81 Respiratory Rate 20 Blood Pressure [Le ft Arm] 170/75 H Blood Pressure [Ri ght Arm] Pulse Oximetry 91 87 L 91 Oxygen Delivery Me thod Room Air Room Air Nasal Cannula Oxygen Flow Rate 1 1 07/09/23 12:05 Temperature 97.3 F L Pulse Rate [Pulse Oximeter] 77 Respiratory Rate 17 Blood Pressure [Le ft Arm] Blood Pressure [Ri ght Arm] 155/61 H Pulse Oximetry 92 Oxygen Delivery Me thod Nasal Cannula Oxygen Flow Rate Discharge Plan Discharge Disposition: Home w/ Parent or Adult Date of Admission: 06/29/23 20:49 Attending Provider on Discharge: Kari Carrillo Primary Care Provider: Provider,Not a Local Condition: Stable Anticipated Discharge Date/Time: 07/09/23 11:22 Discharge Medications: New mirtazapine 15 mg Tablet 7.5 mg PO HS Qty: 30 0RF ondansetron 4 mg Tablet,Disintegrating 4 mg PO Q6H PRNQty: 30 0RF cefuroxime axetil 500 mg Tablet 500 mg PO BIDWM Qty: 10 0RF Continued alendronate 70 mg tablet 70 mg PO QWEEK montelukast 10 mg tablet 10 mg PO DAILY metoprolol succinate 50 mg tablet extended release 24 hr 50 mg PO DAILY Xarelto 20 mg tablet 20 mg PO QPM Discontinued chlorthalidone 25 mg tablet 25 mg PO DAILY Discharge Orders: Discharge Order (Routine); Ordered 07/09/23 Ordered By: Kari L Carrillo Patient Education: Cefuroxime (By mouth), Ondansetron (By mouth), Mirtazapine (By mouth), Influenza (DC), Using Oxygen at Home (DC), Community Acquired Pneumonia (DC) Additional Instructions: 1. Oxygen per recommendations. 2. 5 more days (twice a day, 10 pills) of antibiotics 3. Zofran for nausea as needed. 4. Hold chlorthalidone. Activity Level: Activity as Tolerated Discharge Diet: Regular Follow Up Appointments: Barbara Melchor DO [Staff Physician] - 07/16/23 9:45 am ([facility] for follow-up and establish new patient care, recent hospitalization. ) Forms: [employer] Info Instructions
== END 2023-07-09 13:40 | disposition home or self-care (01) | DRG 193 ==
LOC: ED 19:04 → MEDSURG 19:33
PROVIDERS: Family Medicine; Physician Assistant; Admitting Provider Internal Medicine; Emergency Provider Family Medicine; Visit Provider Internal Medicine
DX: J10.08 Influenza due to other identified influenza virus with other specified pneumonia (principal); E43 Unspecified severe protein-calorie malnutrition; J96.21 Acute and chronic respiratory failure with hypoxia; E87.1 Hypo-osmolality and hyponatremia; N17.9 Acute kidney failure, unspecified; Z68.1 Body mass index [BMI] 19.9 or less, adult; T85.528A Displacement of other gastrointestinal prosthetic devices, implants and grafts, initial encounter; J10.1 Influenza due to other identified influenza virus with other respiratory manifestations; J15.9 Unspecified bacterial pneumonia; Z99.81 Dependence on supplemental oxygen; M94.0 Chondrocostal junction syndrome [Tietze]; J84.10 Pulmonary fibrosis, unspecified; J45.30 Mild persistent asthma, uncomplicated; I12.9 Hypertensive chronic kidney disease with stage 1 through stage 4 chronic kidney disease, or unspecified chronic kidney disease; N18.32 Chronic kidney disease, stage 3b; E86.0 Dehydration; R19.7 Diarrhea, unspecified; R07.9 Chest pain, unspecified; E78.5 Hyperlipidemia, unspecified; Z86.711 Personal history of pulmonary embolism
CPT/HCPCS: 36415; 44500; 71045; 71046; 73502; 74018; 74340; 76705; 80048; 80053; 80076; 82803; 83605; 83690; 83735; 83880; 84100; 84484; 85025; 85027; 85379; 86140; 87493; 87631; 93005; 94664; 94761; 97110; 97116; 97161; 97165; 97530; 97535; 99284; 99285; A9270; J0456; J0696; J2405; J7030; J7050; J7120

== ENCOUNTER 2023-08-04 10:29 | Outpatient (CLI) | payer OTHER, SELFPAY ==
--- OUTSIDE RECORDS SUMMARY | 2023-08-04 10:33 | XMS_ITS | Clinical Summary ---
Author Name Unknown Organization [facility] Address [address] [place] [id number] Care Team Providers Care Handkerchief Maker Name Role Phone Dinah Hernandez MD Primary Care Provider + Allergies No known active allergies Medications Medication Sig Dispensed Refills Start Date End Date Status albuterol (PROAIR HFA/PROVENTIL HFA/VENTOLIN HFA) 108 (90 Base) MCG/ACT Inhaler Inhale 2 puffs into the lungs 4 times daily as needed 0 11/12/2017 Active chlorthalidone (HYGROTON) 25 MG tablet Take 25 mg by mouth daily 0 11/12/2017 Active estradiol (ESTRACE) 0.5 MG tablet Take 0.5 mg by mouth daily 0 11/12/2017 Active metoprolol succinate (TOPROL-XL) 50 MG 24 hr tablet Take 50 mg by mouth daily 0 11/12/2017 Active montelukast (SINGULAIR) 10 MG tablet Take 10 mg by mouth At Bedtime 0 11/12/2017 Active Ascorbic Acid (VITAMIN C PO) Take by mouth daily 0 Active Cholecalciferol (VITAMIN D3) 2000 units TABS Take 2,000 Units by mouth daily 0 Active CALCIUM CARBONATE PO Take 1 tablet by mouth daily 0 Active Aspirin-Caffeine (ANACIN PO) Take 1 tablet by mouth 4 times daily as needed 0 Active acetaminophen (TYLENOL) 325 MG tabletIndications:Emp yema (H),Acute post-operative pain Take 2 tablets (650 mg) by mouth every 4 hours as needed for mild pain or fever 100 tablet 0 12/29/2017 Active naproxen sodium 220 MG capsule Take 220 mg by mouth 2 times daily as needed 0 Active MELATONIN PO Take 2 tablets by mouth Dissolve 2 tablets under the tongue at bedtime 0 Active ferrous sulfate (FE TABS) 325 (65 Fe) MG EC tabletIndications:Iro n deficiency anemia, unspecified iron deficiency anemia type Take 1 tablet (325 mg) by mouth daily 30 tablet 0 10/03/2019 Active Rivaroxaban ANTICOAGULANT 15 & 20 MG TBPK Starter Therapy Pack Take 15 mg by mouth 2 times daily (with meals) for 21 days, THEN 20 mg daily with food for 9 days. 51 each 0 08/13/2022 Active predniSONE (DELTASONE) 20 MG tablet Take 3 tablets (60 mg) by mouth daily 12 tablet 0 08/13/2022 Active Active Problems Problem Noted Date Diagnosed Date Leukocytosis 10/02/[address] scan, chest 10/02/2019 Pulmonary abscess 09/30/2019 Empyema 12/22/2017 CAP (community acquired pneumonia) 12/16/2017 Social History Tobacco Use Types Packs/Day Years Used Date Smoking Tobacco: Never Smokeless Tobacco: Never Alcohol Use Standard Drinks/Week Comments No 0 (1 standard drink = 0.6 oz pur e alcohol) Adolescent Education Answer Date Record ed Getting School Help Needed Not on file 03/28 Sex and Gender Information Value Date Recorded Sex Assigned at Not on file Gender Identity Not on file Sexual Orientation Not on file Last Filed Vital Signs Vital Sign Reading Time Taken Comments Blood Pressure 178/80 08/13/2022 7:45 PM FANCY SEWER Pulse 84 08/13/2022 7:45 PM FANCY SEWER Temperature 36.2 ??C (97.1 ??F) 08/13/2022 11:[address] Respiratory Rate 15 08/13/2022 7:45 PM FANCY SEWER Oxygen Saturation 94% 08/13/2022 7:45 PM FANCY SEWER Inhaled Oxygen Concentration - - Weight 56.2 kg (124 lb) 08/13/2022 11:47 AM FANCY SEWER Height 167.6 cm (5' 6) 08/13/2022 11:47 AM FANCY SEWER Body Mass Index 20.01 08/13/2022 11:47 AM FANCY SEWER Plan of Treatment Health Maintenance Due Date Last Done Comments ADVANCE CARE PLANNING 1940 ANNUAL REVIEW OF HM ORDERS 1940 DEXA 1940 ZOSTER IMMUNIZATION (1 of 2) 01/07/1990 RSV VACCINE ( & 60+ ) (1 - 1-dose 60+ series) 2000 FALL RISK ASSESSMENT 01/07/2005 COVID-19 Vaccine (3 - Modern a risk series) 10/31/2020 10/03/2020, 09/05/2020 MEDICARE ANNUAL WELLNESS VISIT 10/04/2022 10/04/2021, 10/10/2020 INFLUENZA VACCINE (#1) 2023 PHQ-2 (once per calendar year) 2023 DTAP/TDAP/TD IMMUNIZATION (2 - Td or Tdap) 03/14/2025 03/14/2015, 02/06/2003 Pneumococcal Vaccine: 65+ Years Completed 11/17/2018, 11/12/2017 HPV IMMUNIZATION Aged Out No longer e ligible based on patient's age to complete this topic IPV IMMUNIZATION Aged Out No longer e ligible based on patient's age to complete this topic MENINGITIS IMMUNIZATION Aged Out No l onger eligible based on patient's age to complete this topic RSV MONOCLONAL ANTIBODY Aged Out No l onger eligible based on patient's age to complete this topic Advance Directives For more information, please contact: [phone] Latest Code Status on File Code Status Date Activated Date Inactivated Comments DNR/DNI 10/03/2019 2:25 PM 06/18/2020 10:46 AM Question Answer Comments Code status determined by: Discussion wi patient/legal decision maker Code Status History Code Status Date Activated Date Inactivated Comments DNR/DNI 10/01/2019 2:47 PM 10/03/2019 2:25 PM Question Answer Comments Code status determined by: Discussion wi th patient/legal decision maker Full Code 09/30/2019 7:47 PM 10/01/2019 2:47 PM Question Answer Comments Code status determined by: Discussion wi patient/legal decision maker Full Code 12/29/2017 9:38 AM 09/30/2019 11:43 AM DNR 12/22/2017 3:57 PM 12/29/2017 9:38 AM Care Teams Handkerchief Maker Relationship Specialty Start Date End Date Dinah Hernandez MD [facility] [address] [place] [address] PCP - General Family Practice 12/16/17
--- OUTSIDE RECORDS SUMMARY | 2023-08-04 10:33 | XMS_ITS | Referral Summary ---
Author Name Unknown Organization [facility] Address [address] [place] [address] Care Team Providers Care Management Consulting Name Role Phone Dinah Hernandez MD Primary [...] Comments Blood Pressure 178/80 08/13/2022 7:45 PM MANUFACTURE SPECIALIST Pulse 84 08/13/2022 7:45 PM MANUFACTURE SPECIALIST Temperature 36.2 ??C (97.1 ??F) 08/13/2022 11:[address] Respiratory Rate 15 08/13/2022 7:45 PM MANUFACTURE SPECIALIST Oxygen Saturation 94% 08/13/2022 7:45 PM MANUFACTURE SPECIALIST Inhaled Oxygen Concentration - - Weight 56.2 kg (124 lb) 08/13/2022 11:47 AM MANUFACTURE SPECIALIST Height 167.6 cm (5' 6) 08/13/2022 11:47 AM MANUFACTURE SPECIALIST Body Mass Index 20.01 08/13/2022 11:47 AM MANUFACTURE SPECIALIST Plan of Treatment Not on file Advance Directives For more information, please contact: [phone] Latest Code Status on File Code Status Date Activated Date Inactivated Comments DNR/DNI 10/03/2019 2:25 PM 06/18/2020 10:46 AM Question Answer Comments Code status determined by: Discussion wi th patient/legal decision maker Code Status History Code Status Date Activated Date Inactivated Comments DNR/DNI 10/01/2019 2:47 PM 10/03/2019 2:25 PM Question Answer Comments Code status determined by: Discussion wi th patient/legal decision maker Full Code 09/30/2019 7:47 PM 10/01/2019 2:47 PM Question Answer Comments Code status determined by: Discussion wi th patient/legal decision maker Full Code 12/29/2017 9:38 AM 09/30/2019 11:43 AM DNR 12/22/2017 3:57 PM 12/29/2017 9:38 AM Care Teams Management Consulting Relationship Specialty Start Date End Date Dinah Hernandez MD [facility] [id number] [place] [id number] PCP - General Family Practice 12/16/17
--- OUTSIDE RECORDS SUMMARY | 2023-08-04 10:33 | XMS_ITS | Clinical Summary ---
Author Name Unknown Organization [facility] Address [address] [place] [address] Phone Care Team Providers Care Egg Gatherer Name Role Phone Dinah Hernandez MD Primary Care Provider + Allergies No known active allergies Medications Medication Sig Dispensed Refills Start Date End Date Status acetaminophen (TYLENOL) 325 MG tablet Take by mouth every 6 (six) hours if needed for mild pain 0 Active albuterol HFA (PROVENTIL HFA;VENTOLIN HFA) 108 (90 Base) MCG/ACT inhaler Inhale 4 (four) times a day if needed for wheezing 0 Active amoxicillin-clavulana te (AUGMENTIN) 875-125 MG per tablet Take 1 tablet by mouth 0 Active ascorbic acid (VITAMIN C) 250 MG tablet Take 250 mg by mouth 1 (one) time each day 0 Active calcium carbonate (OS-MICHAEL) 1250 (500 Ca) MG chewable tablet Chew 1 tablet 1 (one) time each day 0 Active chlorthalidone (HYGROTON) 25 MG tablet Take 25 mg by mouth 1 (one) time each day 0 Active cholecalciferol (VITAMIN D-3) 25 MCG (1000 UT) capsule Take 2,000 Units by mouth 1 (one) time each day 0 Active estradiol (ESTRACE) 0.5 MG tablet Take 0.5 mg by mouth 1 (one) time each day 0 Active ferrous sulfate 325 (65 Fe) MG EC tablet Take 325 mg by mouth 1 (one) time each day with breakfast 0 Active Melatonin [address] 2 tablets under the tongue every night 0 Active metoprolol succinate XL (TOPROL-XL) 50 MG 24 hr tablet Take 50 mg by mouth 1 (one) time each day 0 Active montelukast (SINGULAIR) 10 MG tablet Take 10 mg by mouth every night 0 Active naproxen sodium (ALEVE) 220 MG tablet Take 220 mg by mouth every 12 (twelve) hours if needed for mild pain 0 Active Active Problems Problem Noted Date Diagnosed Date Leukocytosis 10/02/2019 Abscess of lung 09/30/2019 H/O: respiratory disease 02/05/2018 Empyema 12/22/2017 Uncomplicated mild persistent asthma 03/14/2015 Overview: Spirometry at [place] LUNG 02/2018 FVC 67%, FEV1 58% Other and unspecified hyperlipidemia 04/16/2010 Social History Tobacco Use Types Packs/Day Years Used Date Smoking Tobacco: Never Smokeless Tobacco: Never Tobacco Cessation:Counseling Given: No Alcohol Use Standard Drinks/Week Comments Not Currently 0 (1 standard drink = 0.6 oz pur e alcohol) Sex and Gender Information Value Date Recorded Sex Assigned at Not on file Gender Identity Not on file Sexual Orientation Not on file Plan of Treatment Health Maintenance Due Date Last Done Comments Pneumococcal PPSV23/PCV13 65 + Years / Low and Medium Risk (2 - PPSV23 or PCV20) 11/12/2018 11/12/2017 Influenza Vaccine (#1) 2023 Care Teams Egg Gatherer Relationship Specialty [place] [address] [place] [address] PCP - General Family Medicine 11/02/19
--- OUTSIDE RECORDS SUMMARY | 2023-08-04 10:33 | XMS_ITS | Clinical Summary ---
Author Name Unknown Organization [email or web address] Address [place], [place] [address] Care Team Providers Care Drilling Supervisor Name Role Phone Dinah Hernandez MD Primary Care Provider + Allergies Active Allergy Reactions Criticality Noted Date Comments Oxycodone Hallucinations Medium 01/06/2018 Medications Medication Sig Dispensed Refills Start Date End Date Status Red Yeast Rice Extract 600 mg cap Take 1 capsule by mouth once daily. 0 06/14/2014 Active cholecalciferol (VITAMIN D3) 1,000 unit capsule Take 1 capsule by mouth once daily. 0 03/14/2015 Active calcium carbonate (CALTRATE) 600 mg calcium (1,500 mg) tablet Take 1 tablet by mouth. 0 Active ferrous sulfate, 65 mg elemental, tabletIndications:Anemi a of unknown etiology Take 1 tablet by mouth once daily with a meal. 1 tablet 0 10/10/2019 Active NebulizerIndications:Mu ltiple tracheobronchial mucus plugs Nebulizer, neb kit, neb cup and mask. Medication: albuterol and saline For home use. Length of need for Medicare patients: 99 1 Device 0 10/25/2020 Active Mucus Clearing Device deviIndications:Bronchi ectasis without complication (HC) As directed. 1 Device 0 11/09/2020 Active albuterol HFA (Ventolin HFA) 90 mcg/actuation inhalerIndications:Mild persistent asthma without complication Inhale 2 Puffs by mouth 4 times daily if needed. 1 Each 11 03/19/2021 Active budesonide-formoteroL (Symbicort) 160-4.5 mcg/actuation (160-4.5 mcg each actuation) inhalerIndications:Asth ma, unspecified asthma severity, unspecified whether complicated, unspecified whether persistent Inhale 2 Puffs by mouth 2 times daily. 1 Each 11 03/19/2021 Active sodium chloride 3% nebulization 3 % nebulizer solutionIndications:Mul tiple tracheobronchial mucus plugs 2 ml mixed with the albuterol nebs TID 200 mL 3 10/16/2021 Active rivaroxaban (Xarelto) 20 mg tabletIndications:Pulmo nary embolism, unspecified chronicity, unspecified pulmonary embolism type, unspecified whether acute cor pulmonale present (HC) Take 1 Tablet (20 mg) by mouth once daily with evening meal. 30 Tablet 11 09/17/2022 Active albuterol (PROVENTIL) 0.083 % neb solutionIndications:Bro nchiectasis without complication (HC) Inhale 3 mL (2.5 mg) via a nebulizer every 4 hours if needed for Shortness Of Breath. 225 mL 5 11/07/2022 Active chlorthalidone (HYGROTON) 25 mg tabletIndications:HTN (hypertension) Take 1 Tablet (25 mg) by mouth once daily. 93 Tablet 3 11/07/2022 Active metoprolol succinate (Toprol XL) 50 mg sustained-release tabletIndications:HTN (hypertension) Take 1 Tablet (50 mg) by mouth once daily. 93 Tablet 3 11/07/2022 Active montelukast (SINGULAIR) 10 mg tabletIndications:Mild persistent asthma without complication,Environmen vilma allergies Take 1 Tablet (10 mg) by mouth at bedtime. 93 Tablet 3 11/07/2022 Active estradioL (ESTRACE) 0.5 mg tabletIndications:Vagin al atrophy Take 1 Tablet (0.5 mg) by mouth once daily. 90 Tablet 3 11/20/2022 Active alendronate (FOSAMAX) 70 mg tabletIndications:Osteo penia of both hips Take 1 Tablet (70 mg) by mouth once a week in the morning. Take on empty stomach with full glass of water. Do not lie down for 1 hr. 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 Repeat abscess 08/2019. Again 05/2020 bilateral opacities and consolidation. Mild persistent asthma without complication 02/27 Overview: Spirometry at [facility] 02/2018 FVC 67%, FEV1 58% HTN (hypertension) 04/16/2010 Osteopenia 04/16/2010 Overview: BMD 12.1.09; improving now to mild penia of hip and spine Other and unspecified hyperlipidemia 04/16/2010 Bronchiectasis without complication Resolved Problems Problem Noted Date Diagnosed Date Resolved Date Acute pulmonary embolism wit hout acute cor pulmonale 10/10/2020 10/06/2021 Routine health maintenance 04/16/2010 0 10/04/2021 Encounters Date Type Department Care Team Description 07/27/2023 Telephone [facility] [address] [place] [address] Dinah Hernandez MD Form 07/14/2023 Telephone [facility] [address] [place] [address] Dinah Hernandez MD Form (Plan of care.) 07/13/2023 Telephone [facility] [address] [place] [phone] Tono Lindsey MD Medication Management (rivaroxaban (Xarelto) 20 mg tablet) 07/13/2023 Telephone [facility] [address] [place] [phone] Tono Lindsey MD Error-please disregard (CALLER WAS DISCONNECTED ) from Last 3 Months Immunizations Name Administration Dates Next Due COVID-19 vaccine (Moderna 100mcg/0.5mL) RAGHAV LONDONO 10/03/2020,09/05/2020 COVID-19 vaccine (Moderna 50 mcg/0.5mL) 12YO+ BIVALENT PF, MDV 11/07/2022 Pneumococcal Poly,23-Valent (Pneumovax) 11/18/19 19 Pneumococcal conj 13-Valent (Prevnar 13) 018 Td (Age >=7 Years) 01/27/2003 Tdap 03/14/2015 Family History Medical History Relation Name Comments Good Health Daughter Heart Disease Father Heart Disease Maternal Grandmother Heart Disease Mother 2 CABGs and 1 valve replacment Other Mother hip fx both Good Health Son 1 Good Health Son 2 Relation Name Status Comments Daughter Alive Father (Age 84) alzheimer' s Maternal Grandfather Maternal Grandmother (Age 70's) Mother Paternal Grandfather Paternal Grandmother Son 1 Alive Son 2 Alive Social History Tobacco Use Types Packs/Day Years Used Date Smoking Tobacco: Never Smokeless Tobacco: Never Alcohol Use Standard Drinks/Week Comments Yes 0 (1 standard drink = 0.6 oz pure alcohol) a tiny bit of wine every night. PHQ-2 Answer Date Recorded PHQ-2 TOTAL SCORE 0 11/07/2022 Social Connections Answer Date Recorded Frequency of Communication with Friends and Fami ly 0 11/27/2022 Financial Resource Strain Answer Date R ecorded Difficulty of Paying Living Expenses 3 11/27/2022 Difficulty of Paying Living Expenses Not on file 11/27/2022 Food Insecurity Answer Date Recorded Worried About Running Out of Food in the Last Ye ar 1 11/27/2022 Transportation Needs Answer Date Record ed Lack of Transportation (Medical) 1 11/27/2022 Housing Stability Answer Date Recorded Unable to Pay for Housing in the Last Year 1 11/27/2022 Sex and Gender Information Value Date Recorded Sex Assigned at Not on file Gender Identity Not on file Sexual Orientation Not on file Obstetrics History Para Term AB IAB SAB Ectopic Multiple Livin g Live Births 3 3 3 3 Date Outcome GA Total Labor Labor/2nd/3rd Weight Sex Delivery Anes PTL Staci A1 A5 Name Cl in Term Term Term Comments No complications Last Filed Vital Signs Vital Sign Reading Time Taken Comments Blood Pressure 145/70 01/29/2023 12:14 PM CDT Pulse 82 01/29/2023 11:44 AM CDT Temperature 36.2 ??C (97.2 ??F) 08/25/2022 7:05 PM CS T Respiratory Rate 16 09/17/2022 2:01 PM CDT Oxygen Saturation 97% 01/29/2023 11:44 AM CDT Inhaled Oxygen Concentration - - Weight 54.9 kg (121 lb) 01/29/2023 11:44 AM CDT Height 167.6 cm (5' 6) 01/29/2023 11:44 AM CDT Body Mass Index 19.53 01/29/2023 11:44 AM CDT Plan of Treatment Health Maintenance Due Date Last Done Comments Zoster (shingles) series for age 50+ (1 of 2) 01/07/1990 COVID-19 vaccine series ( season) 2023 11/07/2022, 10/03/2020, 09/05/2020 Influenza for age 65+ 02/27/2023 Medicare Wellness for age 65+ 11/07/2023, 10/04/2021, 10/10/2020, Additional history exists Depression screening for age 12+ 11/08/2023 11/07/2022, 10/04/2021, 10/10/2020, Additional history exists BMI (ht and wt on same day) for age 18+ 01/30/2024 01/29/2023, 11/07/2022, 09/17/2022, Additional history exists Tetanus booster 03/14/2025 03/14/2015, 01/27/2003 Tdap Completed 03/14/2015 Pneumococcal series for age 65+ Completed 9, 11/12/2017 DEXA/DXA scan for age 65+ Completed 2022, 06/10/2012, 05/29/2009, Additional history exists Advance Directives Latest Code Status on File Code Status Date Activated Date Inactivated Comments Full Code 10/29/2021 9:05 AM 10/29/2021 1:57 PM Question Answer Comments Code Status Discussion: Unable to Assess Preferences, Provider to review later Care Teams Drilling Supervisor Relationship Specialty Start Date End Date Dinah Hernandez MD PCP - General 10/23/09
--- OUTSIDE RECORDS SUMMARY | 2023-08-04 10:33 | XMS_ITS | Continuity of Care Document ---
Author Name Unknown Organization [facility] Address [address] [place] [address] Phone Care Team Providers Care Blower Insulator Name Role Phone Dinah Euceda Unavailable Unavailable Allergies, Adverse Reactions, Alerts Substance Reaction Status Criticality oxycodone Active No Information Procedures Procedure Date Office/Outpatient Visit,[facility], [facility] 2021 Advance Directives Directive Yes / No Effective Date File Name No Information Encounters Encounter Description Practice Location Reason(s) For Visit Diagnoses Date Provider Providers Copied on Encounter Office/Outpati ent Visit,New, [facility] , [address], [place], [place], [id number], [place] tel:[phone] [facility] Other spondylosis , lumbar region Zuly Nix. [facility], [address] [place] [address] [address], [place], [address], [place]. tel:[phone] Referring Provider: Dinah Garcia, [facility] [address] [facility] [address], [place], [address]. tel:[phone] Family History Family Member Type Diagnosis Age At Onset No Information Payers Payer name Insurance type Covered republican ID Mainor vaughan(s) [employer] Advantage [id number] Social History Type Description Quantity Date Captured [...]
--- OUTSIDE RECORDS SUMMARY | 2023-08-04 10:33 | XMS_ITS | Encounter Summary ---
Author Name Unknown Organization [place] Address [address] [place] [id number] Care Team Providers Care Retail Loan Originator Name Role Phone Dinah Hernandez MD Primary Care Provider + Reason for Referral * CV Testing (Routine) - Pending Review Specialty Diagnoses / Procedures Referred By Contac t Referred To Contact Diagnoses Single subsegmental pulmonary embolism without acute cor pulmonale (H) Procedures Echocardiogram Complete ZZHC TTE W/DOPPLER, COMPLETE [facility] ECHO COMPLETE W DOPPLER W CONTRAST ZZHC ECHO COMPLETE W DOPPLER W/O CONTRAST ZZHC IV PUSH SINGLE, INITIAL SUBSTANCE ZZHC US GUIDE FOR PERICARDIOCENTESIS ZZHC ECHO MYOCARD BX ZZC INJECTION, PERFLUTREN LIPID MICROSPHERES, PER ML ZZHC STATISTIC IV PUSH SINGLE INITIAL SUBSTANCE GA ECHO MYOCARD BX GA INJECTION, PERFLUTREN LIPID MICROSPHERES, PER ML GA TTE W/DOPPLER, COMPLETE GA IV PUSH SINGLE, INITIAL SUBSTANCE GA TTE W/DOPPLER, COMPLETE GA TTE W/DOPPLER, COMPLETE HC US GUIDE FOR PERICARDIOCENTESIS HC ECHO MYOCARD BX HC IV PUSH SINGLE, INITIAL SUBSTANCE HC STATISTIC IV PUSH SINGLE INITIAL SUBSTANCE HC ECHO COMPLETE W DOPPLER W CONTRAST HC ECHO COMPLETE W DOPPLER W/O CONTRAST Aime Camp MD [facility] [address] [facility] [address] [place] [address] Referral ID Status Reason Start Date Expiration Date V isits Requested Visits Authorized [id number] Pending Review 08/13/2022 08/13/2023 1 1 ERY STARTER Reason for Visit * Reason Comments Breathing Problem Encounter Details Date Type Department Care Team (Late st Contact Info) Description 08/13/2022 5:56 PM BATTERY STARTER - 08/13/2022 7:50 PM BATTERY STARTER [facility] Emergency Dept [address] [place] [id number] Aime Camp MD [facility] [address] [place], [place] [id number] Shortness of breath; Chronic cough; Single subsegmental pulmonary embolism without acute cor pulmonale (H); Bronchiectasis with acute exacerbation (H); Other acute pulmonary embolism, unspecified whether acute cor pulmonale present (H) Discharge Disposition: Home or Self Care Social History Tobacco Use Types Packs/Day Years Used Date Smoking Tobacco: Never Smokeless Tobacco: Never Alcohol Use Standard Drinks/Week Comments No 0 (1 standard drink = 0.6 oz pur e alcohol) Sex and Gender Information Value Date Recorded Sex Assigned at Not on file Gender Identity Not on file Sexual Orientation Not on file COVID-19 Exposure Response Date Recorded In the last 10 days, have yo u been in contact with someone who was confirmed or suspected to have Coronavirus/COVID-19? No / Unsure 08/13/2022 11:32 AM BATTERY STARTER documented as of this encounter Last Filed Vital Signs Vital Sign Reading Time Taken Comments Blood Pressure 178/80 08/13/2022 7:45 PM BATTERY STARTER Pulse 84 08/13/2022 7:45 PM BATTERY STARTER Temperature 36.2 ??C (97.1 ??F) 08/13/2022 11:[address] Respiratory Rate 15 08/13/2022 7:45 PM BATTERY STARTER Oxygen Saturation 94% 08/13/2022 7:45 PM BATTERY STARTER Inhaled Oxygen Concentration - - Weight 56.2 kg (124 lb) 08/13/2022 11:47 AM BATTERY STARTER Height 167.6 cm (5' 6) 08/13/2022 11:47 AM BATTERY STARTER Body Mass Index 20.01 08/13/2022 11:47 AM BATTERY STARTER documented in this encounter Discharge Instructions * Discharge Instructions* Aime Camp MD - 08/13/2022 6:48 PM BATTERY STARTER Discharge Instructions Shortness of breath You have been seen today for shortness of breath. At this time, your provider has found no signs that your shortness of breath is due to a serious or life- threatening condition, (or you have declinedmore testing and/or admission to the hospital). However, sometimes there is a serious problem that does not show up right away. Your evaluation today may not be complete and you may need further testing and evaluation. Generally, every Emergency Department visit should have a follow-up clinic visit with either a primary or a specialty clinic/provider. Please follow-up as instructed by your emergency provider today. Return to the Emergency Department if: Your shortness of breath changes, gets worse, starts to happen more often, or comes with less activity. You are newly chest pain You get very weak or tired. You pass out or faint. You have any new symptoms, like fever, cough, numb legs, or you cough up blood. You have anything else that worries you. Until you follow-up with your regular provider, please do the following: Take one aspirin daily unless you have an allergy or are told not to by your provider. If a stress test appointment has been made, go to the appointment. If you have questions, contact your regular provider. Follow-up with your regular provider/clinic as directed; this is very important. If you were given a prescription for medicine here today, be sure to read all of the information (including the package insert) that comes with your prescription. This will include important information about the medicine, its side effects, and any warnings that you need to know about. The pharmacist who fills the prescription can provide more information and answer questions you may have about the medicine. If you have questions or concerns that the pharmacist cannot address, please call or return to the Emergency Department. Remember that you can always come back to the Emergency Department if you are not able to see your regular provider in the amount of time listed above, if you get any new symptoms, or if there is anything that worries you. ERY STARTER * Attachments The following attachments cannot be sent through Care Everywhere. * Bronchiectasis, Treatment for (Rwandan) * Bronchiectasis, Understanding (Rwandan) * Embolism, Pulmonary (Rwandan) documented in this encounter Medications at Time of Discharge Medication Sig Dispensed Refills Start Date End Date acetaminophen (TYLENOL) 325 MG tabletIndications:Empyem a (H),Acute post-operative pain Take 2 tablets (650 mg) by mouth every 4 hours as needed for mild pain or fever 100 tablet 0 12/29/2017 albuterol (PROAIR HFA/PROVENTIL HFA/VENTOLIN HFA) 108 (90 Base) MCG/ACT Inhaler Inhale 2 puffs into the lungs 4 times daily as needed 0 11/12/2017 Ascorbic Acid (VITAMIN C PO) Take by mouth daily 0 Aspirin-Caffeine (ANACIN PO) Take 1 tablet by mouth 4 times daily as needed 0 CALCIUM CARBONATE PO Take 1 tablet by mouth daily 0 chlorthalidone (HYGROTON) 25 MG tablet Take 25 mg by mouth daily 0 11/12/2017 Cholecalciferol (VITAMIN D3) 2000 units TABS Take 2,000 Units by mouth daily 0 estradiol (ESTRACE) 0.5 MG tablet Take 0.5 mg by mouth daily 0 11/12/2017 ferrous sulfate (FE TABS) 325 (65 Fe) MG EC tabletIndications:Iron deficiency anemia, unspecified iron deficiency anemia type Take 1 tablet (325 mg) by mouth daily 30 tablet 0 10/03/2019 MELATONIN PO Take 2 tablets by mouth Dissolve 2 tablets under the tongue at bedtime 0 metoprolol succinate (TOPROL-XL) 50 MG 24 hr tablet Take 50 mg by mouth daily 0 11/12/2017 montelukast (SINGULAIR) 10 MG tablet Take 10 mg by mouth At Bedtime 0 11/12/2017 naproxen sodium 220 MG capsule Take 220 mg by mouth 2 times daily as needed 0 predniSONE (DELTASONE) 20 MG tablet Take 3 tablets (60 mg) by mouth daily 12 tablet 0 08/13/2022 Rivaroxaban ANTICOAGULANT 15 & 20 MG TBPK Starter Therapy Pack Take 15 mg by mouth 2 times daily (with meals) for 21 days, THEN 20 mg daily with food for 9 days. 51 each 0 08/13/2022 amoxicillin-clavulanate (AUGMENTIN) 875-125 MG tablet Take 1 tablet by mouth 2 times daily for 10 days 20 tablet 0 08/13/2022 08/23/2022 documented as of this encounter ED Notes * Ok Jones, RN - 08/13/2022 12:46 PM CST Pt reports hx of fluid build up on lungs. Pt reports being SOB for the past few weeks. Pt report sob was severe this morning but has gotten better now but stills feels it. Pt also presents with a cough ERY STARTER * Aime Camp MD - 08/13/2022 11:31 AM CST History Chief Complaint: Breathing Problem HPI Charleen Marquez is a 82 year old female with a history of HTN and empyema who presents with chest pressure. The patient states that she has chest pressure and shortness of breath that began 3 weeks ago but worsened today. She has no energy and is lethargic. She has to lay on her side to sleep and wakes up at night with shortness of breath. She denies leg swelling, nausea, vomiting, chills, fever, or diarrhea. She does not have a history of asthma and does not use thinners. She does not use tobacco or drink alcohol. Her father had heart problems. She had Covid two years ago. Independent Historian: None - Patient Only Review of External Notes: See MDM ROS: Review of Systems Constitutional: Positive for fatigue. Negative for chills and fever. Respiratory: Positive for chest tightness and shortness of breath. Cardiovascular: Negative for leg swelling. Gastrointestinal: Negative for diarrhea, nausea and vomiting. All other systems reviewed and are negative. Allergies: No Known Drug Allergies ?? Medications: Albuterol inhaler Chlorthalidone Estradiol Metoprolol succinate Montelukast ?? Past Medical History: Hypertension Asthma Leukocytosis Pulmonary abscess Ovarian cysts Empyema ?? Past Surgical History: Thoracoscopic decortication of right lung CAROLYN with left oophorectomy Right oophorectomy Right VATS Appendectomy ?? Family History: Father - heart disease Social History: The patient presents to the ED with her . PCP: Dinah Hernandez Physical Exam Patient Vitals for the past 24 hrs: BP Temp Temp src Pulse Resp SpO2 Height Weight 08/13/22 1900 -- -- -- 86 24 94 % -- -- 08/13/22 1845 -- -- -- 83 24 100 % -- -- 08/13/22 1800 (!) 168/116 -- -- 85 20 97 % -- -- 08/13/22 1248 (!) 187/83 -- -- -- 22 -- -- -- 08/13/22 1147 (!) 158/51 97.1 ??F (36.2 ??C) Temporal 88 (!) 88 94 % 1.676 m (5' 6) 56.2 kg (124 lb) Physical Exam Constitutional: Well developed, mildly forlorn, nontox appearance Head: Atraumatic. Neck: no stridor Eyes: no scleral icterus Cardiovascular: RRR, 2+ bilat radial pulses Pulmonary/Chest: nml resp effort, mildly coarse breath sounds bilateral lower lung potter Abdominal: ND, soft, NT, no rebound or guarding Ext: Warm, well perfused, no edema Neurological: A&O, symmetric facies, moves ext x4 Skin: Skin is warm and dry. Psychiatric: Behavior is normal. Thought content normal. Nursing note and vitals reviewed. Emergency Department Course Imaging: CT Chest Pulmonary Embolism w Contrast (Results Pending) Echocardiogram Complete (Results Pending) Report per radiology Laboratory: Labs Ordered and Resulted from Time of ED Arrival to Time of ED Departure COMPREHENSIVE METABOLIC PANEL - Abnormal Result Value Sodium 133 (*) Potassium 3.9 Chloride 92 (*) Carbon Dioxide (CO2) 30 (*) Anion Gap 11 Urea Nitrogen 12.0 Creatinine 1.08 (*) Calcium 9.7 Glucose 98 Alkaline Phosphatase 88 AST 18 ALT 9 (*) Protein Total 8.3 Albumin 3.6 Bilirubin Total 0.3 GFR Estimate 51 (*) TROPONIN T, HIGH SENSITIVITY - Abnormal Troponin T, High Sensitivity 19 (*) CBC WITH PLATELETS AND DIFFERENTIAL - Abnormal WBC Count 12.9 (*) RBC Count 4.07 Hemoglobin 12.2 Hematocrit 38.9 MCV 96 MCH 30.0 MCHC 31.4 (*) RDW 12.7 Platelet Count 433 % Neutrophils 84 % Lymphocytes 7 % Monocytes 6 % Eosinophils 1 % Basophils 1 % Immature Granulocytes 1 NRBCs per 100 WBC 0 Absolute Neutrophils 11.0 (*) Absolute Lymphocytes 0.9 Absolute Monocytes 0.8 Absolute Eosinophils 0.1 Absolute Basophils 0.1 Absolute Immature Granulocytes 0.1 Absolute NRBCs 0.0 D DIMER QUANTITATIVE - Abnormal D-Dimer Quantitative 1.45 (*) NT PROBNP INPATIENT - Normal N terminal Pro BNP Inpatient 1,229 INR - Normal INR 1.00 INFLUENZA A/B & SARS-COV2 PCR MULTIPLEX - Normal Influenza A PCR Negative Influenza B PCR Negative RSV PCR Negative SARS CoV2 PCR Negative TROPONIN T, HIGH SENSITIVITY ROUTINE UA WITH MICROSCOPIC REFLEX TO CULTURE Emergency Department Course & Assessments: Social Determinants of Health affecting care: See [facility] Assessments: 1258 Obtained the patients history and performed initial exam Disposition: Discharged to home Impression & Plan Medical Decision Makin82 year old female presenting w/ shortness of breath, generalized weakness ?? Social determinants affecting patient's health include:??Age, previous lung disease likely increasing risk for recurrent ED visits ?? I reviewed medical records from??12/05/21 pulmonology office visit for an overview of the patient's pulmonology history ?? DDx includes viral syndrome NOS, influenza-like illness, influenza, COVID-19, PE, bacterial pneumonia, chronic bronchiectasis, ACS, CHF although less likely. Labs significant for elevated D-dimer, COVID-19 negative, troponin minimally elevated. Imaging sig for findings of bronchiectasis as well as PE relayed to me by radiology over the phone. Given reassuring vital signs and labs, Alexey orderedafter discussion of risks and benefits of anticoagulation with the patient. Given the patient's bronchiectasis worse on today's CT, I think it be reasonable to start her on Augmentin and steroids as well with recommendations to follow-up with her primary smooth plater. At this time I feel the pt issafe for discharge. Recommendations given regarding follow up with PCP and return to the emergency department as needed for new or worsening symptoms. Pt counseled on all results, disposition and diagnosis. They are understanding and agreeable to plan. Patient discharged in stable condition. Diagnosis: ICD-10-CM 1. Shortness of breath R06.02 CANCELED: Follow-Up with Cardiology CLARA CANCELED: Exercise Stress Echocardiogram 2. Chronic cough R05.3 3. Single subsegmental pulmonary embolism without acute cor pulmonale (H) I26.93 Echocardiogram Complete 4. Bronchiectasis with acute exacerbation (H) J47.1 Discharge Medications: New Prescriptions AMOXICILLIN-CLAVULANATE (AUGMENTIN) 875-125 MG TABLET Take 1 tablet by mouth 2 times daily for 10 days PREDNISONE (DELTASONE) 20 MG TABLET Take 3 tablets (60 mg) by mouth daily for 4 days RIVAROXABAN ANTICOAGULANT 15 & 20 MG TBPK STARTER THERAPY PACK Take 15 mg by mouth 2 times daily (with meals) for 21 days, THEN 20 mg daily with food for 9 days. Scribe Disclosure: Davidson Codey Swansonjayden, am serving as a scribe at 12:58 PM on 08/13/2022 to document services personally performed by Aime Camp MD based on my observations and the provider's statements to me. 08/13/2022 Aime Camp MD Vaughn, Christopher E, MD 08/13/221923 ERY STARTER * Jeremy Constantino MD - 08/13/2022 11:31 AM CST Assumed care from Dr. Camp pending EKG, EKG was obtained demonstrating normal sinus rhythm with aheart rate of 84, GA interval of 156, QRS duration of 82, QTc of 427. She has slight ST elevation in lead V2 no reciprocal ST depression no other concurrent ST elevation, this EKG is stable when compared to previous from June 18, 2020. Jeremy Constantino MD 08/13/221938 ERY STARTER documented in this encounter Plan of Treatment Scheduled Orders Name Type Priority Associated Diagnoses Orde r Schedule Echocardiogram Complete Echocardiography Routine Single subsegmental pulmonary embolism without acute cor pulmonale (H) Expected: 08/13/2022 (Approximate), Expires: 08/13/2023 documented as of this encounter Procedures Procedure Name Priority Date/Time Associated Diagnosis Comments EKG 12-LEAD, TRACING ONLY STAT 08/13/2022 7:31 PM BATTERY STARTER TROPONIN T, HIGH SENSITIVITY STAT 08/13/2022 6:[address] CHEST PULMONARY EMBOLISM W CONTRAST STAT 08/13/2022 6:30 PM BATTERY STARTER TROPONIN T, HIGH SENSITIVITY STAT 08/13/2022 4:45 PM BATTERY STARTER NT PROBNP INPATIENT STAT 08/13/2022 4 :45 PM BATTERY STARTER COMPREHENSIVE METABOLIC PANEL STAT 08/13/2022 4:45 PM BATTERY STARTER INFLUENZA A/B & SARS-COV2 PCR MULTIPLEX STAT 08/13/2022 1:04 PM BATTERY STARTER EXTRA TUBE STAT 08/13/2022 12:56 PM BATTERY STARTER EXTRA RED TOP TUBE STAT 08/13/2022 12 :56 PM BATTERY STARTER EXTRA BLUE TOP TUBE STAT 08/13/2022 1 2:56 PM BATTERY STARTER CBC WITH PLATELETS AND DIFFERENTIAL STAT 08/13/2022 12:56 PM BATTERY STARTER CBC WITH PLATELETS & DIFFERENTIAL STAT 08/13/2022 12:56 PM BATTERY STARTER INR STAT 08/13/2022 12:56 PM BATTERY STARTER D DIMER QUANTITATIVE STAT 08/13/2022 12:56 PM BATTERY STARTER documented in this encounter Results * EKG 12 lead (08/13/2022 7:31 PM BATTERY STARTER) Systolic Blood Pressure mmHg RADIOLOGY RESULTS Diastolic Blood Pressure mmHg RADIOLOGY RESULTS Ventricular Rate 84 BPM RAD IOLOGY RESULTS Atrial Rate 84 BPM RADIOLOG Y RESULTS GA Interval 156 ms RADIOLOG Y RESULTS QRS Duration 82 ms RADIOLO GY RESULTS QT 362 ms RADIOLOGY RESULTS QTc 427 ms RADIOLOGY RESULTS P [place] 58 degrees RADIOLOGY RESULTS R AXIS 19 degrees RADIOLOGY RESULTS T [place] 72 degrees RADIOLOGY RESULTS Interpretation ECG Sinus rhythm Anterior infarct , age undetermined Abnormal ECG When compared with ECG of 18-JUN-2020 11:39, Anterior infarct is now Present Confirmed by GENERATED REPORT, COMPUTER ([id number]), newspaper managing editor KINGS PORTILLO ([id number]) on 08/13/2022 7:40:20 PM RADIOLOGY RESULTS 08/13/2022 7:31 PM BATTERY STARTER 08/13/2022 7:40 PM BATTERY STARTER Aime Camp MD ECG ORDERABLES RADIOLOGY RESULTS * (ABNORMAL) Troponin T, High Sensitivity (08/13/2022 6:51 PM BATTERY STARTER) Troponin T, High Sensitivity 18(H) <=14 ng/L 08/13/2022 7:44 PM BATTERY STARTER LABORATORY Comment: Either a High Sensitivity Troponin T baseline (0 hours) value = 100 ng/mL, or an increase in High Sensitivity Troponin T = 7 ng/mL at 2 hours compared to 0 hours (2-0 hours), suggests myocardial injury, and urgent clinical attention is required. ?? If the 2-0 hours increase is<7 ng/mL, a High Sensitivity Troponin T result above gender-specific reference ranges warrants further evaluation. Recommendations for further evaluation include correlation with clinical decision-making tool (e.g., HEART), a 3rd High Sensitivity Troponin T test 2 hours after the 2nd (a 20% change from baseline would represent concern), admission for observation, close PCC/cardiology follow-up, or urgent outpatient provocative testing. Blood BLOOD SPECIMEN / Unknown Venipuncture / Unknown 08/13/2022 6:51 PM BATTERY STARTER 08/13/2022 6:56 PM BATTERY STARTER iAme Camp MD LAB - BLOOD [facility] [address] 1[address] floor, [address] [place] [address], [facility] [phone] * (ABNORMAL) CT Chest Pulmonary Embolism w Contrast (08/13/2022 6:30 PM BATTERY STARTER) Radiologist flags New diagnosis of pulmonary embolism(AA) RADIOLOGY RESULTS Anatomical Region Laterality Modality Chest, SUBRAD CT BODY, UMP CT CHEST Computed Tomography 08/13/2022 6:30 PM BATTERY STARTER Impressions 08/13/2022 8:58 PM BATTERY STARTER IMPRESSION: 1. ??Acute segmental pulmonary emboli in the right lower lobe. No secondary signs of right heart strain. 2. ??Nodular and tree-in-bud opacities in both lower lobes with associated bronchiectasis and extensive endobronchial debris suggesting chronic aspiration and infection. [Critical Result: New diagnosis of pulmonary embolism] Finding was identified on 08/13/2022 6:54 PM. Emergency department provider was contacted by me on 08/13/2022 6:57 PM and verbalized understanding of the critical result. Narrative 08/13/2022 8:58 PM BATTERY STARTER EXAM: CT CHEST PULMONARY EMBOLISM W CONTRAST LOCATION: [facility] DATE/TIME: 08/13/2022 6:30 PM INDICATION: elevated dimer, dyspnea COMPARISON: 10/17/2020 TECHNIQUE: CT chest pulmonary angiogram during arterial phase injection of IV contrast. Multiplanar reformats and MIP reconstructions were performed. Dose reduction techniques were used. CONTRAST: 56 mL Isovue 370 FINDINGS: ANGIOGRAM CHEST: Filling defects within segmental branches in the right lower lobe. Thoracic aorta is negative for dissection. No CT evidence of right heart strain. LUNGS AND PLEURA: Extensive nodular and tree-in-bud opacities throughout both lower lobes, as well as an area of confluent consolidation in the medial left lung base, increased compared to prior CTs. Extensive bilateral lower lobe bronchiectasis with extensive endoluminal debris. No pleural effusion or pneumothorax. MEDIASTINUM/AXILLAE: Mildly enlarged bilateral hilar lymph nodes, likely reactive. Moderate size hiatal hernia. CORONARY ARTERY CALCIFICATION: Mild. UPPER ABDOMEN: Focal atherosclerotic calcification with moderate narrowing of the celiac axis at its origin. Patency downstream is preserved in the visualized portions. MUSCULOSKELETAL: Degenerative changes in the spine. Procedure Note Dandy Walton MD - 08/13/2022 EXAM: CT CHEST PULMONARY EMBOLISM W CONTRAST LOCATION: [facility] DATE/TIME: 08/13/2022 6:30 PM INDICATION: elevated dimer, dyspnea COMPARISON: 10/17/2020 TECHNIQUE: CT chest pulmonary angiogram during arterial phase injection ofIV contrast. Multiplanar reformats and MIP reconstructions were performed.Dose reduction techniques were used. CONTRAST: 56 mL Isovue 370 FINDINGS: ANGIOGRAM CHEST: Filling defects within segmental branches in the rightlower lobe. Thoracic aorta is negative for dissection. No CT evidence ofright heart strain. LUNGS AND PLEURA: Extensive nodular and tree-in-bud opacities throughoutboth lower lobes, as well as an area of confluent consolidation in themedial left lung base, increased compared to prior CTs. Extensivebilateral lower lobe bronchiectasis with extensive endoluminal debris. No pleural effusion or pneumothorax. MEDIASTINUM/AXILLAE: Mildly enlarged bilateral hilar lymph nodes, likelyreactive. Moderate size hiatal hernia. CORONARY ARTERY CALCIFICATION: Mild. UPPER ABDOMEN: Focal atherosclerotic calcification with moderate narrowingof the celiac axis at its origin. Patency downstream is preserved in thevisualized portions. MUSCULOSKELETAL: Degenerative changes in the spine. IMPRESSION: 1. Acute segmental pulmonary emboli in the right lower lobe. No secondarysigns of right heart strain. 2. Nodular and tree-in-bud opacities in both lower lobes with associatedbronchiectasis and extensive endobronchial debris suggesting chronicaspiration and infection. [Critical Result: New diagnosis of pulmonary embolism] Finding was identified on 08/13/2022 6:54 PM. Emergency department provider was contacted by me on 08/13/2022 6:57 PM andverbalized understanding of the critical result. Aime Camp MD IM CT ORDERABLE S * (ABNORMAL) Troponin T, High Sensitivity (08/13/2022 4:45 PM BATTERY STARTER) [facility] Troponin T, High Sensitivity 19(H) <=14 ng/L 08/13/2022 5:43 PM BATTERY STARTER LABORATORY Comment: Either a High Sensitivity Troponin T baseline (0 hours) value = 100 ng/mL, or an increase in High Sensitivity Troponin T = 7 ng/mL at 2 hours compared to 0 hours (2-0 hours), suggests myocardial injury, and urgent clinical attention is required. ?? If the 2-0 hours increase is<7 ng/mL, a High Sensitivity Troponin T result above gender-specific reference ranges warrants further evaluation. Recommendations for further evaluation include correlation with clinical decision-making tool (e.g., HEART), a 3rd High Sensitivity Troponin T test 2 hours after the 2nd (a 20% change from baseline would represent concern), admission for observation, close PCC/cardiology follow-up, or urgent outpatient provocative testing. Blood BLOOD SPECIMEN / Unknown Venipuncture / Unknown 08/13/2022 4:45 PM BATTERY STARTER 08/13/2022 5:09 PM BATTERY STARTER Aime Camp MD LAB - BLOOD MARY JANE MCCOY [facility] Organization Address City/State/ZIP Co de Phone Number LABORATORY [facility] [address], [address] [place] [address], [facility] [phone] * (ABNORMAL) Comprehensive metabolic panel (08/13/2022 4:45 PM BATTERY STARTER) Sodium 133(L) 136 - 145 mmol/L 08/13/2022 5:43 PM [facility] Potassium 3.9 3.4 - 5.3 mmol/L 08/13/2022 5:43 PM [facility] Chloride 92(L) 98 - 107 mmol/L 08/13/2022 5:43 PM [facility] Carbon Dioxide (CO2) 30(H) 22 - 29 mmol/L 08/13/2022 5:43 PM [facility] [facility] Anion Gap 11 7 - 15 mmol/L 08/13/2022 5:43 PM [facility] Urea Nitrogen 12.0 8.0 - 23.0 mg/dL 08/13/2022 5:43 PM [facility] Creatinine 1.08(H) 0.51 - 0.95 mg/dL 08/13/2022 5:43 PM [facility] Calcium 9.7 8.8 - 10.2 mg/dL 08/13/2022 5:43 PM [facility] Glucose 98 70 - 99 mg/dL 08/13/2022 5:43 PM [facility] Alkaline Phosphatase 88 35 - 104 U/L 08/13/2022 5:43 PM [facility] AST 18 10 - 35 U/L 08/13/2022 5:43 PM [facility] ALT 9(L) 10 - 35 U/L 08/13/2022 5:43 PM [facility] Protein Total 8.3 6.4 - 8.3 g/dL 08/13/2022 5:43 PM [facility] Albumin 3.6 3.5 - 5.2 g/dL 08/13/2022 5:43 PM [facility] Bilirubin Total 0.3 <=1.2 mg/dL 08/13/2022 5:43 PM [facility] GFR Estimate 51(L) >60 mL/min/1.7 3m2 08/13/2022 5:43 PM [facility] Comment:eGFR calculated usin 2020 CKD-EPI equation. Blood BLOOD SPECIMEN / Unknown Venipuncture / Unknown 08/13/2022 4:45 PM [facility] 08/13/2022 5:09 PM [facility] Aime Camp MD LAB - BLOOD [facility]AT[facility] [address] 1[address] floor, [address] [place] [address], [facility] [phone] * BNP (08/13/2022 4:45 PM [facility]) [facility] N terminal Pro BNP Inpatient 1,229 0 - 1,800 pg/mL 08/13/2022 5:43 PM [facility] Comment: Reference range shown and results flagged as abnormal are suggested inpatient cut points for confirming diagnosis if CHF in an acute setting. Establishing a baseline value for each individual patient is useful for follow-up. An inpatient or emergency department NT-proPBNP <300 pg/mL effectively rules out acute CHF, with 99% negative predictive value. The outpatient non-acute reference range for ruling out CHF is: 0-125 pg/mL (age 18 to less than 75) 0-450 pg/mL (age 75 yrs and older) Blood BLOOD SPECIMEN / Unknown Venipuncture / Unknown 08/13/2022 4:45 PM [facility] 08/13/2022 5:09 PM [facility] Aime Camp MD LAB - BLOOD [facility] [address] floor, [address] [place] [address], [place] [phone] * Symptomatic Influenza A/B & SARS-CoV2 (COVID-19) Virus PCR Multiplex Nose (08/13/2022 1:04 PM [facility]) Pathologist [facility] Influenza A PCR Negative Negative 08/13/2022 2:14 PM [facility] Influenza B PCR Negative Negative 08/13/2022 2:14 PM [facility] RSV PCR Negative Negative 08/13/2022 2:14 PM [facility] SARS CoV2 PCR Negative Negative 08/13/2022 2:14 PM [facility] Comment:NEGATIVE: SARS-CoV-2 (COVID-19) RNA not detected, presumed negative. Swab NASAL STRUCTURE / Unknown Non-blood Collection / Unknown 08/13/2022 1:04 PM [facility] 08/13/2022 1:27 PM [facility] LABORATORY - 08/13/2022 2:14 PM [facility] Testing was performed using the Xpert Xpress CoV2/Flu/RSV Assay on the [employer] GeneXpert Instrument. This test should be ordered for the detection of SARS-CoV-2 and influenza viruses in individuals who meet clinical and/or epidemiological criteria. Test performance is unknown in asymptomatic patients. This test is for in vitro diagnostic use under the FDA EUA for laboratories certified under CLIA to perform high or moderate complexity testing. This test has not been FDA cleared or approved. A negative result does not rule out the presence of PCR inhibitors in the specimen or target RNA in concentration below the limit of detection for the assay. If only one viral target is positive but coinfection with multiple targets is suspected, the sample should be re-tested with another FDA cleared, approved, or authorized test, if coinfection would change clinical management. This test was validated by the [facility]. These laboratories are certified under the Clinical Laboratory Improvement Amendments of 1988 (CLIA-88) as qualified to perform high complexity laboratory testing. Aime Camp MD LAB - MICRO GENE RAL ORDERABLES LABORATORY [facility] [address] 1[address] floor, [address] [place] [address], [facility] [phone] * INR (08/13/2022 12:56 PM [facility]) [facility] INR 1.00 0.85 - 1.15 08/13/2022 2:05 PM [facility] Blood VENOUS LINE / Unknown Venipuncture / Unknown 08/13/2022 12:56 PM [facility] 08/13/2022 1:02 PM [facility] Aime Camp MD LAB - BLOOD ORDYifan MCCOY Performing Organization Address City/[facility]/ZIP Co de Phone Number LABORATORY [facility] [address] 1[address] floor, [address] [place] [address], [place] [phone] * (ABNORMAL) D dimer quantitative (08/13/2022 12:56 PM [facility]) [facility] D-Dimer Quantitative 1.45(H) 0.00 - 0.50 ug/mL FEU 08/13/2022 2:09 PM [facility] Blood VENOUS LINE / Unknown Venipuncture / Unknown 08/13/2022 12:56 PM [facility] 08/13/2022 1:02 PM [facility] Narrative LABORATORY - 08/13/2022 2:09 PM [facility] This D-dimer assay is intended for use in conjunction with a clinical pretest probability assessment model to exclude pulmonary embolism (PE) and deep venous thrombosis (DVT) in outpatients suspected of PE or DVT. The cut-off value is 0.50 ug/mL FEU. Aime Camp MD LAB - BLOOD [facility] JANE MCCOY [facility] [address] 1[address] floor, [address] [place] [address], [place] [phone] * Extra Red Top Tube (08/13/2022 12:56 PM [facility]) [facility] Hold Specimen JIC 08/13/2022 2:03 PM [facility] Blood VENOUS LINE / Unknown Venipuncture / Unknown 08/13/2022 12:56 PM [facility] 08/13/2022 1:02 PM [facility] Aime Camp MD LAB - BLOOD ORDE DARIUS LABORATORY [facility] [address], [address] [place] [address], [place] [phone] * Extra Blue Top Tube (08/13/2022 12:56 PM [facility]) [facility] Hold Specimen JIC 08/13/2022 2:03 PM [facility] Blood VENOUS LINE / Unknown Venipuncture / Unknown 08/13/2022 12:56 PM [facility] 08/13/2022 1:02 PM [facility] Aime Camp MD LAB - BLOOD ORDYifan MCCOY LABORATORY [facility] [address], [address] [place] [address], [facility] [phone] * (ABNORMAL) CBC with platelets and differential (08/13/2022 12:56 PM [facility]) [facility] WBC Count 12.9(H) 4.0 - 11.0 10e3/uL 08/13/2022 1:07 PM [facility] RBC Count 4.07 3.80 - 5.20 10e6/uL 08/13/2022 1:07 PM [facility] Hemoglobin 12.2 11.7 - 15.7 g/dL 08/13/2022 1:07 PM [facility] Hematocrit 38.9 35.0 - 47.0 % 08/13/2022 1:07 PM [facility] MCV 96 78 - 100 fL 08/13/2022 1:07 PM [facility] MCH 30.0 26.5 - 33.0 pg 08/13/2022 1:07 PM [facility] MCHC 31.4(L) 31.5 - 36.5 g/dL 08/13/2022 1:07 PM [facility] RDW 12.7 10.0 - 15.0 % 08/13/2022 1:07 PM [facility] Platelet Count 433 150 - 450 10e3/uL 08/13/2022 1:07 PM [facility] % Neutrophils 84 % 08/13/2022 1:07 PM [facility] % Lymphocytes 7 % 08/13/2022 1:07 PM [facility] % Monocytes 6 % 08/13/2022 1:07 PM [facility] % Eosinophils 1 % 08/13/2022 1:07 PM [facility] % Basophils 1 % 08/13/2022 1:07 PM [facility] % Immature Granulocytes 1 % 08/13/2022 1:07 PM [facility] NRBCs per 100 WBC 0 <1 /100 023 1:07 PM [facility] Absolute Neutrophils 11.0(H) 1.6 - 8.3 10e3/uL 08/13/2022 1:07 PM [facility] Absolute Lymphocytes 0.9 0.8 - 5.3 10e3/uL 08/13/2022 1:07 PM [facility] Absolute Monocytes 0.8 0.0 - 1.3 10e3/uL 08/13/2022 1:07 PM [facility] Absolute Eosinophils 0.1 0.0 - 0.7 10e3/uL 08/13/2022 1:07 PM [facility] Absolute Basophils 0.1 0.0 - 0.2 10e3/uL 08/13/2022 1:07 PM [facility] Absolute Immature Granulocytes 0.1 <=0.4 10e3/uL 08/13/2022 1:07 PM [facility] Absolute NRBCs 0.0 10e3/uL 08/13/2022 1:07 PM [facility] Blood BLOOD SPECIMEN / Unknown Venipuncture / Unknown 08/13/2022 12:56 PM [facility] 08/13/2022 1:02 PM [facility] Aime Camp MD LAB - BLOOD [facility] JANE MCCOY [facility] Organization Address City/State/ZIP Co de Phone Number LABORATORY [facility] [address] 1[address], [address] [place] [address], [facility] [phone] documented in this encounter Visit Diagnoses Diagnosis Shortness of breath Chronic cough Cough Single subsegmental pulmonary embolism without acute cor pulmonale (H) Bronchiectasis with acute exacerbation (H) Bronchiectasis with acute exacerbation Other acute pulmonary embolism, unspecified whether acute cor pulmonale present (H) documented in this encounter Administered Medications Inactive Administered Medications - up to 3 most recent administrations Medication Order MAR Action Action Date Dose Rate Site amoxicillin-clavulanate (AUGMENTIN) 875-125 MG per tablet 1 tablet STAT, 1 tablet, Oral, ONCE, On Thu08/13/22 at 1915, For 1 dose, Indications: Community Acquired Pneumonia $Given 08/13/2022 7:44 PM [facility] 1 tablet iopamidol (ISOVUE-370) solution 56 mL 56 mL, Intravenous, ONCE, On Thu08/13/22 at 1805, For 1 dose $Given 08/13/2022 6:19 PM [facility] 56 mLs ipratropium - albuterol 0.5 mg/2.5 mg/3 mL (DUONEB) neb solution 3 mL 3 mL, Nebulization, ONCE, On Thu08/13/22 at 1835, For 1 dose $Given 08/13/2022 6:40 PM [facility] 3 mLs rivaroxaban ANTICOAGULANT (XARELTO) tablet 15 mg 15 mg, Oral, ONCE, On Thu08/13/22 at 1915, For 1 dose, Indications: DVT-PE Treatment $Given 08/13/2022 7:44 PM [facility] 15 mg Saline Flush - CT Intravenous, 83 mL, ONCE, On Thu08/13/22 at 1805, For 1 dose, This entry is for use by Radiology to intermittently used as a flush in patients receiving a CT scan. $Given 08/13/2022 6:19 PM [facility] 83 mLs documented in this encounter Active and Recently Administered Medications Times are shown in [facility]. Scheduled Medication Order 08/11/2022 08/12/2022 08/13/2022 amoxicillin-clavulanate (AUGMENTIN) 875-125 MG per tablet 1 tablet (COMPLETED) STAT, 1 tablet, Oral, ONCE, On Thu08/13/22 at 1915, For 1 dose, Indications: Community Acquired Pneumonia 194 ($Given - Provi lawson: Kari Duenas RN) iopamidol (ISOVUE-370) solution 56 mL (COMPLETED) 56 mL, Intravenous, ONCE, On Thu08/13/22 at 1805, For 1 dose 181 ($Given - Provi lawson: Jamar Magaña) ipratropium - albuterol 0.5 mg/2.5 mg/3 mL (DUONEB) neb solution 3 mL (COMPLETED) 3 mL, Nebulization, ONCE, On Thu08/13/22 at 1835, For 1 dose 1840 ($Given - Provi lawson: Kari Duenas RN) rivaroxaban ANTICOAGULANT (XARELTO) tablet 15 mg (COMPLETED) 15 mg, Oral, ONCE, On Thu08/13/22 at 1915, For 1 dose, Indications: DVT-PE Treatment 194 ($Given - Provi lawson: Kari Duenas RN) Saline Flush - CT (COMPLETED) Intravenous, 83 mL, ONCE, On Thu08/13/22 at 1805, For 1 dose, This entry is for use by Radiology to intermittently used as a flush in patients receiving a CT scan. 181 ($Given - Provi lawson: Jamar Magaña) documented in this encounter Care Teams Retail Loan Originator Relationship Specialty Start Date End Date Dinah Hernandez MD [facility] [id number] [place] [id number] PCP - General Family Practice 12/16/17 documented as of this encounter
--- NOTE | 2023-08-04 11:00 | CRLHL7_ITS ---
For Patients: As a result of the Century Cures Act, medical imaging exams and procedure reports are released immediately into your electronic medical record. You may view this report before your referring provider. If you have questions, please contact your health care provider. INDICATION: Pain in right hip. TECHNIQUE: CT soft tissue pelvis without IV contrast. COMPARISON: 06/30/2023 x-ray. FINDINGS: No pelvic or right hip fracture appreciated. Mild SI joint degenerative change. Mild joint space narrowing in both hips. Degenerative changes in the lower lumbar spine. Atherosclerotic calcifications in the distal aorta and iliac arteries. Colonic diverticulosis without diverticulitis. Uterus is either atrophic or has been surgically removed. No pelvic masses appreciated. No lymphadenopathy. IMPRESSION: 1. Mild degenerative changes in the SI joints and both hips. 2. Colonic diverticulosis without diverticulitis. 3. Atherosclerosis. 4. Lower lumbar spine degenerative change. Please note that all CT scans at this facility use dose modulation, iterative reconstruction, and/or weight-based dosing when appropriate to reduce radiation dose to as low as reasonably achievable. Dictated by Simone Khan MD @ 08/05/2023 1:39:47 PM (Electronically Signed)
== END 2023-08-04 10:30 | disposition home or self-care (01) ==
LOC: CT 10:31
PROVIDERS: Visit Provider Family Medicine
DX: M25.551 Pain in right hip (principal); K57.90 Diverticulosis of intestine, part unspecified, without perforation or abscess without bleeding; I70.90 Unspecified atherosclerosis; M51.36 Other intervertebral disc degeneration, lumbar region
CPT/HCPCS: 72192

== ENCOUNTER 2023-08-25 12:32 | Outpatient (CLI) | payer OTHER, SELFPAY ==
--- NOTE | 2023-08-25 13:00 | CT_ITS ---
Patient: MANDO RAMIREZ Facility:?[facility] Patient ID:?[id number] Site Patient ID:?[id number]. Site :?[id number] Study:?CT-Chest WITHOUT-08/25/2023 1:04:03 PM Ordering Physician:SOHAM Final Report: INDICATION: Right lower lobe pulmonary nodule TECHNIQUE: CT chest without contrast. COMPARISON: Images from 08/13/2023 chest x-ray. No report available. FINDINGS: Lungs and pleura: Bronchiectasis, bronchial wall thickening, and multifocal mucous plugging in the right lower lobe and to a somewhat lesser degree inferior right middle lobe and left lower lobe. 16 x 8 mm irregular nodule and adjacent parenchymal distortion in the posterior right lower lobe on image 63 of series 3 and image 53 of series 4. This is probably the nodule that was seen on the chest x-ray. Tree-in-bud micronodules in the lung bases. Heart and vasculature: Heart is moderately enlarged. Ectatic ascending aorta measuring 4 cm. Dense coronary artery calcifications. Lymph nodes/mediastinum: No mediastinal, hilar, or axillary adenopathy. Moderate hiatal hernia. Chest wall: No masses. Upper abdomen: Normal. Bones: Unremarkable for age. IMPRESSION: 1. Irregular 16 x 8 mm right lower lobe pulmonary nodule. 2. Bronchiectasis, mucous plugging, and bronchial wall thickening in the lung bases, greatest in the right lower lobe. [employer] GUIDELINES - SOLID NODULES: SINGLE LOW RISK - nodule less than 6 mm: No routine follow-up. - nodule 6-8 mm: CT at 6-12 months, then consider CT at 18-24 months. - nodule greater than 8 mm: Consider CT at 3 months, PET/CT or tissue sampling. SINGLE HIGH RISK - nodule less than 6 mm: Optional CT at 12 months. - nodule 6-8 mm: CT at 6-12 months, then CT at 18-24 months. - nodule greater than 8 mm: Consider CT at 3 months, PET/CT or tissue sampling. MULTIPLE LOW RISK - nodule less than 6 mm: No routine follow-up. - nodule 6-8 mm: CT at 3-6 months, then consider CT at 18-24 months. - nodule greater than 8 mm: CT at 3-6 months, then consider CT at 18-24 months. MULTIPLE HIGH RISK - nodule less than 6 mm: Optional CT at 12 months. - nodule 6-8 mm: CT at 3-6 months, then at 18-24 months. - nodule greater than 8 mm: CT at 3-6 months, then at 18-24 months. Please note that all CT scans at this facility use dose modulation, iterative reconstruction, and/or weight-based dosing when appropriate to reduce radiation dose to as low as reasonably achievable. Dictated by Simone Khan MD @ 08/25/2023 2:16:54 PM Signed by:?Simone Khan MD @08/25/2023 2:16:54 PM (Electronic Signature)
== END 2023-08-25 12:33 | disposition home or self-care (01) ==
LOC: CT 12:38
PROVIDERS: PCP Physician Assistant Medical; Visit Provider Physician Assistant Medical
DX: R91.1 Solitary pulmonary nodule (principal); J47.9 Bronchiectasis, uncomplicated
CPT/HCPCS: 71250

== ENCOUNTER 2023-10-14 09:56 | Outpatient (CLI) | payer OTHER, SELFPAY ==
--- OUTSIDE RECORDS SUMMARY | 2023-10-16 07:34 | XMS_ITS | Clinical Summary ---
Author Name Unknown Organization [facility] Address [place], [place] [address] Care Team Providers Care Clerk General Office Name Role Phone Dinah Hernandez MD Primary [...] mg) tablet Take 1 tablet by mouth. Active ferrous sulfate, 65 mg elemental, tabletIndications:Anemi a of unknown etiology Take 1 tablet by mouth once daily with a meal. 1 tablet 10/10/2019 Active NebulizerIndications:Mu ltiple tracheobronchial mucus plugs Nebulizer, neb kit, neb cup and mask. Medication: albuterol and saline For home use. Length of need for Medicare patients: 99 1 Device 10/25/2020 Active Mucus Clearing Device deviIndications:Bronchi ectasis without complication (HC) As directed. 1 Device 11/09/2020 Active albuterol HFA (Ventolin HFA) 90 [...] asthma without complication 02/27 Overview: Spirometry at [facility] 02/2018 FVC 67%, FEV1 58% HTN (hypertension) [...] Type Department Care Team Description 07/27/2023 Telephone [facility] [address] [place] [address] Dinah Hernandez MD Form from Last 3 Months Immunizations Name Administration Dates Next Due COVID-19 vaccine (Moderna 100mcg/0.5mL) PF, MDV 10/03/2020,09/05/2020 COVID-19 vaccine (Moderna 50 mcg/0.5mL) 12YO+ [...] series ( season) 2023 11/07/2022, 10/03/2020, 09/05/2020 Depression screening for age 12+ 11/08/2023 11/07/2022, 10/04/2021, 10/10/2020, Additional history exists Medicare Wellness for age 65+ 11/08/2023, 10/04/2021, 10/10/2020, Additional history exists BMI (ht and wt on same day) for age 18+ 01/30/2024 01/29/2023, 11/07/2022, 09/17/2022, Additional history exists Influenza for age 65+ 02/28/2024 Tetanus booster 03/14/2025 03/14/2015, 01/27/2003 Tdap Completed 03/14/2015 Pneumococcal series for age 65+ Completed 9, 11/12/2017 DEXA/DXA scan for age 65+ Completed 2022, 06/10/2012, 05/29/2009, Additional history exists Procedures Procedure Name Priority Date/Time Associated Diagnosis Comments XR DXA BONE DENSITY 2 SITES AXIAL Routine 11/12/2022 11:34 AM CDT Osteopenia of both hips Post-menopausal from Last 3 Months or Most Recently Relevant to Health Maintenance Results * XR DXA BONE DENSITY 2 SITES AXIAL (11/12/2022 11:34 AM CDT) Anatomical Region Laterality Modality Spine, HIPS, HIPL, HIPR Computed Radiography 11/12/2022 11:3 4 AM CDT Impressions 11/12/2022 11:59 AM CDT Low bone density (OSTEOPENIA). T score meets the WHO criteria for low bone density (osteopenia) at one or more measured sites. The risk of osteoporotic fracture increases approximately two-fold for each standard deviation decrease in T-score. Narrative 11/12/2022 11:59 AM CDT For Patients: As a result of the Cures Act, medical imaging exams and procedure reports are released immediately into your electronic medical record. You may view this report before your referring provider. If you have questions, please contact your health care provider. EXAM: XR DXA BONE DENSITY 2 SITES AXIAL LOCATION: [facility] DATE/TIME: 11/12/2022 11:34 AM CDT INDICATION: Low bone density, osteopenia. DEMOGRAPHICS: Age- 82 years. Gender- Female. Menopausal status- Postmenopausal. COMPARISON: None. TECHNIQUE: Dual-energy x-ray absorptiometry (DXA) performed with routine technique. FINDINGS: DXA RESULTS -Lumbar Spine: L1-L4: BMD: 1.426 g/cm2. T-score: 2.1. Z-score: 4.3. Degenerative change may artifactually increase BMD. -RIGHT Hip Total: BMD: 0.844 g/cm2. T-score: -1.3. Z-score: 1.1. -RIGHT Hip Femoral neck: BMD: 0.810 g/cm2. T-score: -1.6. Z-score: 0.9. -LEFT Hip Total: BMD: 0.844 g/cm2. T-score: -1.3. Z-score: 1.1. -LEFT Hip Femoral neck: BMD: 0.777 g/cm2. T-score: -1.9. Z-score: 0.6. WHO T-SCORE CRITERIA -Normal: T score at or above -1 SD -Osteopenia: T score between -1 and -2.5 SD -Osteoporosis: T score at or below -2.5 SD The World Health Organization (WHO) criteria is applicable to perimenopausal females, postmenopausal females, and men aged 50 years or older. FRACTURE RISK -FRAX Results: The 10 year probability of major osteoporotic fracture is 12.5%, and of hip fracture is 4.0%, based on left femoral neck BMD. RECOMMENDATIONS Consider treatment if major osteoporotic fracture score is greater than or equal to 20%, and if the hip fracture score is greater than or equal to 3%. Procedure Note Elver Elliott MD - 11/12/2022 For Patients: As a result of the 21st Century Cures Act, medical imagingexams and procedure reports are released immediately into your electronicmedical record. You may view this report before your referring provider.If you have questions, please contact your health care provider. EXAM: XR DXA BONE DENSITY 2 SITES AXIAL LOCATION: [facility] DATE/TIME: 11/12/2022 11:34 AM CDT INDICATION: Low bone density, osteopenia. DEMOGRAPHICS: Age- 82 years. Gender- Female. Menopausal status-Postmenopausal. COMPARISON: None. TECHNIQUE: Dual-energy x-ray absorptiometry (DXA) performed with routinetechnique. FINDINGS: DXA RESULTS -Lumbar Spine: L1-L4: BMD: 1.426 g/cm2. T-score: 2.1. Z-score: 4.3.Degenerative change may artifactually increase BMD. -RIGHT Hip Total: BMD: 0.844 g/cm2. T-score: -1.3. Z-score: 1.1. -RIGHT Hip Femoral neck: BMD: 0.810 g/cm2. T-score: -1.6. Z-score: 0.9. -LEFT Hip Total: BMD: 0.844 g/cm2. T-score: -1.3. Z-score: 1.1. -LEFT Hip Femoral neck: BMD: 0.777 g/cm2. T-score: -1.9. Z-score: 0.6. WHO T-SCORE CRITERIA -Normal: T score at or above -1 SD -Osteopenia: T score between -1 and -2.5 SD -Osteoporosis: T score at or below -2.5 SD The World Health Organization (WHO) criteria is applicable toperimenopausal females, postmenopausal females, and men aged 50 years orolder. FRACTURE RISK -FRAX Results: The 10 year probability of major osteoporotic fracture is12.5%, and of hip fracture is 4.0%, based on left femoral neck BMD. RECOMMENDATIONS Consider treatment if major osteoporotic fracture score is greater than orequal to 20%, and if the hip fracture score is greater than or equal to3%. IMPRESSION: Low bone density (OSTEOPENIA). T score meets the WHO criteria for low bonedensity (osteopenia) at one or more measured sites. The risk ofosteoporotic fracture increases approximately two-fold for each standarddeviation decrease in T-score. Dinah Hernandez MD DEXA from Last 3 Months or Most Recently Relevant to Health Maintenance Advance Directives * Full Code (Latest Code Status on File) Date Activated Date Inactivated Comments 10/29/2021 9:05 AM 10/29/2021 1:57 PM Question Answer Comments Code Status Discussion: Unable to Assess Preferences, Provider to review later Care Teams Clerk General Office Relationship Specialty Start Date End Date Dinah Hernandez MD PCP - General 10/23/09
--- OUTSIDE RECORDS SUMMARY | 2023-10-16 07:34 | XMS_ITS | Clinical Summary ---
Author Name Unknown Organization [facility] Address [address] [place] [address] Care Team Providers Care Logistics Manager Name Role Phone Dinah Hernandez MD Primary Care Provider + Allergies No known active allergies Medications Medication Sig Dispensed Refills Start Date End Date Status albuterol (PROAIR HFA/PROVENTIL HFA/VENTOLIN HFA) 108 (90 Base) MCG/ACT Inhaler Inhale 2 puffs into the lungs 4 times daily as needed 11/12/2017 Active chlorthalidone (HYGROTON) 25 MG tablet Take 25 mg by mouth daily 11/12/2017 Active estradiol (ESTRACE) 0.5 MG tablet Take 0.5 mg by mouth daily 11/12/2017 Active metoprolol succinate (TOPROL-XL) 50 MG 24 hr tablet Take 50 mg by mouth daily 11/12/2017 Active montelukast (SINGULAIR) 10 MG tablet Take 10 mg by mouth At Bedtime 11/12/2017 Active Ascorbic Acid (VITAMIN C PO) Take by mouth daily Active Cholecalciferol (VITAMIN D3) 2000 units TABS Take 2,000 Units by mouth daily Active CALCIUM CARBONATE PO Take 1 tablet by mouth daily Active Aspirin-Caffeine (ANACIN PO) Take 1 tablet by mouth 4 times daily as needed Active acetaminophen (TYLENOL) 325 MG tabletIndications:Emp yema (H),Acute post-operative pain Take 2 tablets (650 mg) by mouth every 4 hours as needed for mild pain or fever 100 tablet 12/29/2017 Active naproxen sodium 220 MG capsule Take 220 mg by mouth 2 times daily as needed Active MELATONIN PO Take 2 tablets by mouth Dissolve 2 tablets under the tongue at bedtime Active ferrous sulfate (FE TABS) 325 (65 Fe) MG EC tabletIndications:Iro n deficiency anemia, unspecified iron deficiency anemia type Take 1 tablet (325 mg) by mouth daily 30 tablet 10/03/2019 Active Rivaroxaban ANTICOAGULANT 15 & 20 MG TBPK Starter Therapy Pack Take 15 mg by mouth 2 times daily (with meals) for 21 days, THEN 20 mg daily with food for 9 days. 51 each 08/13/2022 Active predniSONE (DELTASONE) 20 MG tablet Take 3 tablets (60 mg) by mouth daily 12 tablet 08/13/2022 Active Active Problems Problem Noted Date [...] Comments Blood Pressure 178/80 08/13/2022 7:45 PM PROGRAM MANAGER Pulse 84 08/13/2022 7:45 PM PROGRAM MANAGER Temperature 36.2 ??C (97.1 ??F) 08/13/2022 11:[address] Respiratory Rate 15 08/13/2022 7:45 PM PROGRAM MANAGER Oxygen Saturation 94% 08/13/2022 7:45 PM PROGRAM MANAGER Inhaled Oxygen Concentration - - Weight 56.2 kg (124 lb) 08/13/2022 11:47 AM PROGRAM MANAGER Height 167.6 cm (5' 6) 08/13/2022 11:47 AM PROGRAM MANAGER Body Mass Index 20.01 08/13/2022 11:47 AM PROGRAM MANAGER Plan of Treatment Health Maintenance Due Date [...] Advance Directives For more information, please contact: [phone] * DNR/DNI (Latest Code Status on File) Date Activated Date Inactivated Comments 10/03/2019 2:25 PM 06/18/2020 10:46 AM Question Answer Comments Code status determined by: Discussion with patie nt/legal decision maker * DNR/DNI Date Activated Date Inactivated Comments 10/01/2019 2:47 PM 10/03/2019 2:25 PM Question Answer Comments Code status determined by: Discussion with patie nt/legal decision maker * Full Code Date Activated Date Inactivated Comments 09/30/2019 7:47 PM 10/01/2019 2:47 PM Question Answer Comments Code status determined by: Discussion with patie nt/legal decision maker * Full Code Date Activated Date Inactivated Comments 12/29/2017 9:38 AM 09/30/2019 11:43 AM * DNR Date Activated Date Inactivated Comments 12/22/2017 3:57 PM 12/29/2017 9:38 AM Care Teams Logistics Manager Relationship Specialty Start Date End Date Dinah Hernandez MD [facility] [address] [place] [address] PCP - General Family Practice 12/16/17
--- OUTSIDE RECORDS SUMMARY | 2023-10-16 07:34 | XMS_ITS | Referral Summary ---
Author Name Unknown Organization [facility] Address [address] [place] [address] Care Team Providers Care Mountain Services Manager Name Role Phone Dinah Hernandez MD [...] Comments Blood Pressure 178/80 08/13/2022 7:45 PM HOME DESIGNER Pulse 84 08/13/2022 7:45 PM HOME DESIGNER Temperature 36.2 ??C (97.1 ??F) 08/13/2022 11:[address] Respiratory Rate 15 08/13/2022 7:45 PM HOME DESIGNER Oxygen Saturation 94% 08/13/2022 7:45 PM HOME DESIGNER Inhaled Oxygen Concentration - - Weight 56.2 kg (124 lb) 08/13/2022 11:47 AM HOME DESIGNER Height 167.6 cm (5' 6) 08/13/2022 11:47 AM HOME DESIGNER Body Mass Index 20.01 08/13/2022 11:47 AM HOME DESIGNER Plan of Treatment Not on file Advance Directives For more information, please contact: [phone] * DNR/DNI (Latest Code Status on File) [...] 3:57 PM 12/29/2017 9:38 AM Care Teams Mountain Services Manager Relationship Specialty Start Date End Date Dinah Hernandez MD [facility] [address] [place] [address] PCP - General Family Practice 12/16/17
--- OUTSIDE RECORDS SUMMARY | 2023-10-16 07:35 | XMS_ITS | Clinical Summary ---
Author Name Unknown Organization [facility] Address [address] [place] [address] Phone Care Team Providers Care Architectural Manager Name Role Phone Dinah Hernandez MD Primary Care Provider + Allergies No known active allergies Medications Medication Sig Dispensed Refills Start Date End Date Status acetaminophen (TYLENOL) 325 MG tablet Take by mouth every 6 (six) hours if needed for mild pain Active albuterol HFA (PROVENTIL HFA;VENTOLIN HFA) 108 (90 Base) MCG/ACT inhaler Inhale 4 (four) times a day if needed for wheezing Active amoxicillin-clavulana te (AUGMENTIN) 875-125 MG per tablet Take 1 tablet by mouth Active ascorbic acid (VITAMIN C) 250 MG tablet Take 250 mg by mouth 1 (one) time each day Active calcium carbonate (OS-MICHAEL) 1250 (500 Ca) MG chewable tablet Chew 1 tablet 1 (one) time each day Active chlorthalidone (HYGROTON) 25 MG tablet Take 25 mg by mouth 1 (one) time each day Active cholecalciferol (VITAMIN D-3) 25 MCG (1000 UT) capsule Take 2,000 Units by mouth 1 (one) time each day Active estradiol (ESTRACE) 0.5 MG tablet Take 0.5 mg by mouth 1 (one) time each day Active ferrous sulfate 325 (65 Fe) MG EC tablet Take 325 mg by mouth 1 (one) time each day with breakfast Active Melatonin [address] 2 tablets under the tongue every night Active metoprolol succinate XL (TOPROL-XL) 50 MG 24 hr tablet Take 50 mg by mouth 1 (one) time each day Active montelukast (SINGULAIR) 10 MG tablet Take 10 mg by mouth every night Active naproxen sodium (ALEVE) 220 MG tablet Take 220 mg by mouth every 12 (twelve) hours if needed for mild pain Active Active Problems Problem Noted Date Diagnosed Date Leukocytosis 10/02/2019 Abscess of lung 09/30/2019 H/O: respiratory disease 02/05/2018 Empyema 12/22/2017 Uncomplicated mild persistent asthma 03/14/2015 Overview: Spirometry at [place] LUNG 02/2018 FVC 67%, FEV1 58% Other [...] Years / Low and Medium Risk (2 of 3 - PPSV23 or PCV20) 11/12/2018 11/12/2017 Influenza Vaccine (Season Ended) 2024 Care Teams Architectural Manager Relationship Specialty [place] [address] [place] [address] PCP - General Family Medicine 11/02/19
--- OUTSIDE RECORDS SUMMARY | 2023-10-16 07:35 | XMS_ITS | Continuity of Care Document ---
Author Name Unknown Organization [facility] Address [address] [place] [address] Phone Care Team Providers Care Baseball Inspector Name Role Phone Dinah Euceda Unavailable Unavailable Allergies, Adverse Reactions, Alerts Substance Reaction Status Criticality oxycodone Active No Information Procedures Procedure Date Office/Outpatient Visit,[facility], [facility] [place] Advance Directives Directive Yes / No Effective Date File Name No Information Encounters Encounter Description Practice Location Reason(s) For Visit Diagnoses Date Provider Providers Copied on Encounter Office/Outpati ent Visit,[place] [facility] , [address], [place], [place], [id number], [place] tel:[phone] [facility] Other spondylosis , lumbar region Zuly Nix. [facility], [address] [place] [address] [address], [place], [address], [place]. tel:[phone] Referring Provider: Dinah Garcia, [employer] [facility] [address] [facility] [address], [place], [address]. tel:[phone] Family History Family Member Type Diagnosis Age At Onset No Information Payers Payer name Insurance type Covered constitution party ID Mainor vaughan(s) [employer] Medicare Advantage [id number] Social History Type Description Quantity Date Captured [...]
== END 2023-10-14 09:57 | disposition home or self-care (01) ==
LOC: NFLDREF 10-16 07:33
PROVIDERS: PCP Physician Assistant Medical; Referring Provider Physician Assistant Medical; Visit Provider Physician Assistant Medical
DX: E78.2 Mixed hyperlipidemia (principal); Z79.899 Other long term (current) drug therapy
CPT/HCPCS: 80061; 84450; 84460

== ENCOUNTER 2023-12-03 13:44 | Outpatient (CLI) | payer OTHER, SELFPAY ==
--- OUTSIDE RECORDS SUMMARY | 2023-12-03 13:46 | XMS_ITS | Referral Summary ---
Author Organization [facility] Address [address] [place] [address] Care Team Providers Care Pyrotechnician Name Role Phone Dinah Hernandez MD Primary [...] Comments Blood Pressure 178/80 08/13/2022 7:45 PM EQUESTRIAN TRAINER Pulse 84 08/13/2022 7:45 PM EQUESTRIAN TRAINER Temperature 36.2 ??C (97.1 ??F) 08/13/2022 11:[address] Respiratory Rate 15 08/13/2022 7:45 PM EQUESTRIAN TRAINER Oxygen Saturation 94% 08/13/2022 7:45 PM EQUESTRIAN TRAINER Inhaled Oxygen Concentration - - Weight 56.2 kg (124 lb) 08/13/2022 11:47 AM EQUESTRIAN TRAINER Height 167.6 cm (5' 6) 08/13/2022 11:47 AM EQUESTRIAN TRAINER Body Mass Index 20.01 08/13/2022 11:47 AM EQUESTRIAN TRAINER Plan of Treatment Not on file Advance Directives For more information, please contact: [phone] * DNR/DNI (Latest Code Status on File) [...] 3:57 PM 12/29/2017 9:38 AM Care Teams Pyrotechnician Relationship Specialty Start Date End Date Dinah Hernandez MD [facility] [id number] [place] [address] PCP - General Family Practice 12/16/17
--- OUTSIDE RECORDS SUMMARY | 2023-12-03 13:46 | XMS_ITS | Clinical Summary ---
Author Organization [facility] [employer] [facility] Address [place], [place] [address] Care Team Providers Care Customer Engineer Name Role Phone Dinah Hernandez MD Primary [...] asthma without complication 02/27 Overview: Spirometry at [place] LUNG 02/2018 FVC 67%, FEV1 58% HTN (hypertension) 04/16/2010 Osteopenia 04/16/2010 Overview: BMD 12.1.09; improving now to mild penia of hip and spine Other and unspecified hyperlipidemia 04/16/2010 Bronchiectasis without complication Resolved Problems Problem Noted Date Diagnosed Date Resolved Date Acute pulmonary embolism wit hout acute cor pulmonale 10/10/2020 10/06/2021 Routine health maintenance 04/16/2010 0 10/04/2021 Immunizations Name Administration Dates Next Due COVID-19 [...] of Communication with Friends and Fami ly Not on file 11/28/2023 Financial Resource Strain Answer Date R ecorded [...] For Patients: As a result of the Century Cures Act, medical imaging exams and procedure reports are released immediately into your electronic medical record. You may view this report before your referring provider. If you have questions, please contact your health care provider. EXAM: XR DXA BONE DENSITY 2 SITES AXIAL LOCATION: [facility] DATE/TIME: 11/12/2022 11:34 AM CDT INDICATION: Low [...] DXA BONE DENSITY 2 SITES AXIAL LOCATION: [facility] DATE/TIME: 11/12/2022 11:34 AM CDT INDICATION: Low [...] Preferences, Provider to review later Care Teams Customer Engineer Relationship Specialty Start Date End Date Dinah Hernandez MD PCP - General 10/23/09
--- OUTSIDE RECORDS SUMMARY | 2023-12-03 13:46 | XMS_ITS | Clinical Summary ---
Author Organization [facility] Address [address] [place] [address] Care Team Providers Care Wafer Polishing Worker Name Role Phone Dinah Hernandez MD Primary [...] Comments Blood Pressure 178/80 08/13/2022 7:45 PM INSIDE SALES ENGINEER Pulse 84 08/13/2022 7:45 PM INSIDE SALES ENGINEER Temperature 36.2 ??C (97.1 ??F) 08/13/2022 11:[address] Respiratory Rate 15 08/13/2022 7:45 PM INSIDE SALES ENGINEER Oxygen Saturation 94% 08/13/2022 7:45 PM INSIDE SALES ENGINEER Inhaled Oxygen Concentration - - Weight 56.2 kg (124 lb) 08/13/2022 11:47 AM INSIDE SALES ENGINEER Height 167.6 cm (5' 6) 08/13/2022 11:47 AM INSIDE SALES ENGINEER Body Mass Index 20.01 08/13/2022 11:47 AM INSIDE SALES ENGINEER Plan of Treatment Health Maintenance Due Date Last Done Comments ADVANCE CARE PLANNING 1940 ANNUAL REVIEW OF HM ORDERS 1940 DEXA 1940 ZOSTER IMMUNIZATION (1 of 2) 01/07/1990 RSV VACCINE ( & 60+ ) (1 - 1-dose 60+ series) 2000 FALL RISK ASSESSMENT 01/07/2005 COVID-19 Vaccine (3 - Modern a risk series) 10/31/2020 10/03/2020, 09/05/2020 MEDICARE ANNUAL WELLNESS VISIT 10/04/2022 10/04/2021, 10/10/2020 PHQ-2 (once per calendar year) 2023 INFLUENZA VACCINE (Season Ended) 2024 DTAP/TDAP/TD IMMUNIZATION (2 - Td or Tdap) [...] Advance Directives For more information, please contact: [phone] * DNR/DNI (Latest Code Status on File) [...] 3:57 PM 12/29/2017 9:38 AM Care Teams Wafer Polishing Worker Relationship Specialty Start Date End Date Dinah Hernandez MD [facility] [address] [place] [address] PCP - General Family Practice 12/16/17
--- OUTSIDE RECORDS SUMMARY | 2023-12-03 13:47 | XMS_ITS | Continuity of Care Document ---
Author Organization [facility] Address [address] [place] [address] Phone Care Team Providers Care Ammonium Nitrate Crystallizer Name Role Phone Dinah Euceda Unavailable Unavailable Allergies, Adverse Reactions, Alerts Substance Reaction Status Criticality oxycodone Active No Information Procedures Procedure Date Office/Outpatient Visit,[facility], [facility] 2021 Advance Directives Directive Yes / No Effective Date File Name No Information Encounters Encounter Description Practice Location Reason(s) For Visit Diagnoses Date Provider Providers Copied on Encounter Office/Outpati ent Visit,, [facility] , [address], [place], [place], [id number], [place] tel:[phone] [facility] Other spondylosis , lumbar region Zuly Nix. [facility], [address] [place] [address] 600, [place], [address], [place]. tel:[phone] Referring Provider: Dinah Garcia, [employer] [facility] [address] [facility] [address], [place], [address]. tel:[phone] Family History Family Member Type Diagnosis Age At Onset No Information Payers Payer name Insurance type Covered democrat ID Mainor vaughan(s) [employer] Medicare Advantage [id number] Social History Type Description Quantity Date Captured [...]
--- OUTSIDE RECORDS SUMMARY | 2023-12-03 13:47 | XMS_ITS | Clinical Summary ---
Author Organization [facility] Address [address] [place] [address] Phone Care Team Providers Care Twister Operator Name Role Phone Dinah Hernandez MD Primary [...] mild persistent asthma 03/14/2015 Overview: Spirometry at [place] LUNG 02/2018 FVC 67%, FEV1 58% Other [...] Influenza Vaccine (Season Ended) 2024 Care Teams Twister Operator Relationship Specialty [place] [address] [place] [address] PCP - General Family Medicine 11/02/19
--- NOTE | 2023-12-03 14:00 | CRLHL7_ITS ---
For Patients: As a result of the Century Cures Act, medical imaging exams and procedure reports are released immediately into your electronic medical record. You may view this report before your referring provider. If you have questions, please contact your health care provider. INDICATION: Follow-up nodule right lung. COMPARISON: Chest radiograph July 04, 2023 and August 13, 2023; CT chest without and with contrast 08/25/2019. TECHNIQUE: CT chest without intravenous contrast; coronal and sagittal reformats. FINDINGS: Significant bronchiectasis lower lobe right lung with mucous plugging. The previously noted nodular opacity in the right lung base is resolving and measuring 1 x 0.7 cm at this time. No other discrete abnormal intra pulmonary nodular densities not identified. No abnormal mediastinal or hilar lymphadenopathy. No evidence of pleural effusion or chest wall pathology. Hiatus hernia. Impression: 1. Significant bronchiectatic changes lower lobe right lung with mucous plugging. 2. Significant resolution of the nodule in the right lung base when compared to July 2023; suggest obtaining a follow-up chest CT in 6 months to ablation. 3. Hiatus hernia. Please note that all CT scans at this facility use dose modulation, iterative reconstruction, and/or weight-based dosing when appropriate to reduce radiation dose to as low as reasonably achievable. Dictated by Edel Navarro MD @ 12/04/2023 2:48:36 PM (Electronically Signed)
== END 2023-12-03 13:45 | disposition home or self-care (01) ==
LOC: CT 13:45
PROVIDERS: PCP Physician Assistant Medical; Visit Provider Physician Assistant Medical
DX: R91.1 Solitary pulmonary nodule (principal); K44.9 Diaphragmatic hernia without obstruction or gangrene
CPT/HCPCS: 71250

== ENCOUNTER 2023-12-24 13:40 | Outpatient (CLI) | payer OTHER, SELFPAY ==
--- OUTSIDE RECORDS SUMMARY | 2023-12-25 12:09 | XMS_ITS | Continuity of Care Document ---
Author Organization [facility] Address [address] [place] [address] Phone Care Team Providers Care Infirmary Attendant Name Role Phone Dinah Euceda Unavailable Unavailable Allergies, Adverse Reactions, Alerts Substance Reaction Status Criticality oxycodone Active No Information Procedures Procedure Date Office/Outpatient Visit,[facility], [facility] [place] Advance Directives Directive Yes / No Effective Date File Name No Information Encounters Encounter Description Practice Location Reason(s) For Visit Diagnoses Date Provider Providers Copied on Encounter Office/Outpati ent Visit,, [facility] , [address], [place], [place], [id number], [place] tel:[phone] [facility] Other spondylosis , lumbar region Zuly Nix. [facility], [address] [place] [address] [address], [place], [address], [place]. tel:[phone] Referring Provider: Dinah Garcia, [employer] [facility] [address] [facility] [address], [place], [address]. tel:[phone] Family History Family Member Type Diagnosis Age At Onset No Information Payers Payer name Insurance type Covered alliance party ID Mainor vaughan(s) [employer] Medicare Advantage [id number] Social History Type Description Quantity Date Captured [...]
--- OUTSIDE RECORDS SUMMARY | 2023-12-25 12:09 | XMS_ITS | Referral Summary ---
Author Organization [facility] Address [address] [place] [address] Care Team Providers Care Special Education Director Name Role Phone Dinah Hernandez MD Primary [...] Comments Blood Pressure 178/80 08/13/2022 7:45 PM COMMUNITY SUPPORT ASSOCIATE Pulse 84 08/13/2022 7:45 PM COMMUNITY SUPPORT ASSOCIATE Temperature 36.2 ??C (97.1 ??F) 08/13/2022 11:[address] Respiratory Rate 15 08/13/2022 7:45 PM COMMUNITY SUPPORT ASSOCIATE Oxygen Saturation 94% 08/13/2022 7:45 PM COMMUNITY SUPPORT ASSOCIATE Inhaled Oxygen Concentration - - Weight 56.2 kg (124 lb) 08/13/2022 11:47 AM COMMUNITY SUPPORT ASSOCIATE Height 167.6 cm (5' 6) 08/13/2022 11:47 AM COMMUNITY SUPPORT ASSOCIATE Body Mass Index 20.01 08/13/2022 11:47 AM COMMUNITY SUPPORT ASSOCIATE Plan of Treatment Not on file Advance Directives For more information, please contact: [phone] * DNR/DNI (Latest Code Status on File) [...] 3:57 PM 12/29/2017 9:38 AM Care Teams Special Education Director Relationship Specialty Start Date End Date Dinah Hernandez MD [facility] [id number] [place] [address] PCP - General Family Practice 12/16/17
--- OUTSIDE RECORDS SUMMARY | 2023-12-25 12:09 | XMS_ITS | Clinical Summary ---
Author Organization [facility] Address [address] [place] [address] Care Team Providers Care Bench Assembler Electrical Name Role Phone Dinah Hernandez MD Primary [...] Comments Blood Pressure 178/80 08/13/2022 7:45 PM HEALTH AND SAFETY INSTRUCTOR Pulse 84 08/13/2022 7:45 PM HEALTH AND SAFETY INSTRUCTOR Temperature 36.2 ??C (97.1 ??F) 08/13/2022 11:[address] Respiratory Rate 15 08/13/2022 7:45 PM HEALTH AND SAFETY INSTRUCTOR Oxygen Saturation 94% 08/13/2022 7:45 PM HEALTH AND SAFETY INSTRUCTOR Inhaled Oxygen Concentration - - Weight 56.2 kg (124 lb) 08/13/2022 11:47 AM HEALTH AND SAFETY INSTRUCTOR Height 167.6 cm (5' 6) 08/13/2022 11:47 AM HEALTH AND SAFETY INSTRUCTOR Body Mass Index 20.01 08/13/2022 11:47 AM HEALTH AND SAFETY INSTRUCTOR Plan of Treatment Health Maintenance Due Date [...] Advance Directives For more information, please contact: [phone] * DNR/DNI (Latest Code Status on File) [...] 3:57 PM 12/29/2017 9:38 AM Care Teams Bench Assembler Electrical Relationship Specialty Start Date End Date Dinah Hernandez MD [facility] [address] [place] [address] PCP - General Family Practice 12/16/17
--- OUTSIDE RECORDS SUMMARY | 2023-12-25 12:09 | XMS_ITS | Clinical Summary ---
Author Organization [facility] Address [address] [place] [address] Phone Care Team Providers Care Quality Consultant Name Role Phone Dinah Hernandez MD Primary [...] Empyema 12/22/2017 Uncomplicated mild persistent asthma 03/14/2015 Overview (11/09/2019): Spirometry at [place] LUNG 02/2018 FVC 67%, FEV1 58% Other [...] Influenza Vaccine (Season Ended) 2024 Care Teams Quality Consultant Relationship Specialty [place] [address] [place] [address] PCP - General Family Medicine 11/02/19
--- OUTSIDE RECORDS SUMMARY | 2023-12-25 12:09 | XMS_ITS | Clinical Summary ---
Author Organization [facility] Address [place], [place] [address] Care Team Providers Care Aeronautical Design Engineer Name Role Phone Dinah Hernandez MD [...] asthma without complication 02/27 Overview: Spirometry at [place] LUNG 02/2018 FVC 67%, FEV1 58% HTN [...] Outcome GA Total Labor Labor/2nd/3rd Weight Sex Type Anes PTL Staci A1 A5 Name Clin Term Term Term Comments No complications Last [...] DXA BONE DENSITY 2 SITES AXIAL LOCATION: [facility] DATE/TIME: 11/12/2022 11:34 AM CDT INDICATION: Low [...] DXA BONE DENSITY 2 SITES AXIAL LOCATION: [facility] DATE/TIME: 11/12/2022 11:34 AM CDT INDICATION: Low [...] Preferences, Provider to review later Care Teams Aeronautical Design Engineer Relationship Specialty Start Date End Date Dinah Hernandez MD PCP - General 10/23/09
== END 2023-12-24 13:41 | disposition home or self-care (01) ==
LOC: NFLDREF 12-25 12:07
PROVIDERS: PCP Physician Assistant Medical; Referring Provider Physician Assistant Medical; Visit Provider Physician Assistant Medical
DX: E78.2 Mixed hyperlipidemia (principal); I10 Essential (primary) hypertension; M85.851 Other specified disorders of bone density and structure, right thigh; M85.852 Other specified disorders of bone density and structure, left thigh; G31.84 Mild cognitive impairment of uncertain or unknown etiology; Z86.711 Personal history of pulmonary embolism
CPT/HCPCS: 80053; 80061; 82306; 82607; 84443

== ENCOUNTER 2024-06-08 12:39 | Outpatient (CLI) | payer OTHER, SELFPAY ==
--- NOTE | 2024-06-08 13:00 | CRLHL7_ITS ---
For Patients: As a result of the Century Cures Act, medical imaging exams and procedure reports are released immediately into your electronic medical record. You may view this report before your referring provider. If you have questions, please contact your health care provider. INDICATION: Pulmonary nodule. Follow up. TECHNIQUE: Volumetric helical scanning of the thorax was performed without IV contrast material. Coronal and sagittal reconstructions were obtained. COMPARISON: Chest x-ray of 07/05/2023 FINDINGS: No suspicious nodule is demonstrated. Small nodular infiltrates are demonstrated in the lateral right upper lobe on images 37-43 of series 3, in the lateral left upper lobe on images 35-41, in the right lower lobe on images 45-63 as well as in the left lower lobe base on images 67-78. Marked bronchiectasis in the right lower lobe base is demonstrated with multiple dilated airways filled with fluid/mucous. Mild bronchial wall thickening is demonstrated. No pleural effusion is demonstrated. There is no mediastinal or hilar lymphadenopathy. A hiatal hernia a moderate to large size is demonstrated. The heart size is normal. Calcified coronary arterial plaque is demonstrated. Images of the upper abdomen are unremarkable. IMPRESSION: 1. No suspicious nodule demonstrated. 2. Small nodular infiltrates in both lungs, suspected be chronic, as above. 3. Marked bronchiectasis in the right lower lobe base with fluid/mucous in multiple dilated airways. Mild bronchial wall thickening otherwise. 4. Hiatal hernia moderate to large size. Please note that all CT scans at this facility use dose modulation, iterative reconstruction, and/or weight-based dosing when appropriate to reduce radiation dose to as low as reasonably achievable. Dictated by Seferino Sullivan MD @ 06/09/2024 8:59:43 AM (Electronically Signed)
== END 2024-06-08 12:40 | disposition home or self-care (01) ==
LOC: CT 12:40
PROVIDERS: PCP Physician Assistant Medical; Visit Provider Physician Assistant Medical
DX: R91.1 Solitary pulmonary nodule (principal); J47.9 Bronchiectasis, uncomplicated; K44.9 Diaphragmatic hernia without obstruction or gangrene
CPT/HCPCS: 71250

== ENCOUNTER 2024-06-08 13:24 | Outpatient (CLI) | payer OTHER, SELFPAY ==
[2024-06-08 14:30] LABS: Basophils Absolute Auto 0.03 K/uL (0.00-0.30); Basophils Percent Auto 0.4 % (0.0-3.0); Eosinophils Absolute Auto 0.08 K/uL (0.00-0.50); Eosinophils Percent Auto 1.1 % (0.0-7.0); Hematocrit* 42.7 % (33.0-51.0); Hemoglobin* 13.5 gm/dL (12.0-16.0); Immature Granulocytes Abs Auto 0.02 K/uL (0.00-0.30); Immature Granulocytes Pct Auto 0.3 %; Lymphocytes Percent Auto 18.2 % (20-44); Mean Corpuscular HGB Conc 32 gm/dL (32-36); Mean Corpuscular Hemoglobin 31 pg (26-34); Mean Corpuscular Volume 98 fL (80-100); Monocytes Percent Auto 6.9 % (0.0-11.0); Neutrophils Percent Auto 73.1 % (42.0-72.0); Platelet Count* 265 K/uL (140-440); RDW Coefficient of Variation % 12.8 % (11.5-15.5); Red Blood Count* 4.34 m/uL (4.00-5.20); White Blood Count* 7.08 K/uL (4.50-11.00)
[2024-06-08 14:36] LABS: Slide Review Reflex No
[2024-06-08 14:41] LABS: Ammonia* < 8.7 umol/L (13.1-30.0)
[2024-06-08 15:30] LABS: Albumin* 4.7 g/dL (3.3-5.0); Chloride* 100 mmol/L (96-114); Potassium* 4.1 mmol/L (3.6-5.1)
[2024-06-08 15:33] LABS: Alanine Aminotransferase* 21 U/L (4-35); Alkaline Phosphatase* 71 U/L (40-150); Aspartate Amino Transferase* 41 U/L (12-35); Bilirubin Total* 0.7 mg/dL (0.1-1.5); Blood Urea Nitrogen* 27 mg/dL (7-30); Carbon Dioxide* 28 mmol/L (20-32); Creatinine* 1.2 mg/dL (0.5-1.5); Estimated Glomerular Filt Rate 45 ml/min; Glucose* 102 mg/dL (60-115); Total Protein* 8.3 g/dL (6.0-8.3)
[2024-06-08 15:34] LABS: Calcium* 9.7 mg/dL (8.4-10.6)
[2024-06-09 00:25] LABS: Anion Gap 12 mEq/L (7-15); Sodium* 140 mmol/L (135-149)
[2024-06-09 03:32] LABS: Vitamin B12* 323 pg/mL (243-894)
[2024-06-09 15:08] LABS: Folate, Serum 14.6 ng/mL (>=5.9)
[2024-06-11 05:16] LABS: MMA Vitamin B12 Status 0.54 umol/L (0.00-0.40)
== END 2024-06-08 13:25 | disposition home or self-care (01) ==
LOC: LAB 13:25
PROVIDERS: PCP Physician Assistant Medical; Visit Provider Psychiatry & Neurology Neurology
DX: R41.3 Other amnesia (principal); F09 Unspecified mental disorder due to known physiological condition
CPT/HCPCS: 0346U; 36415; 80053; 82140; 82607; 82746; 83921; 84439; 84443; 85025

== ENCOUNTER 2025-04-25 12:04 | Outpatient (CLI) | payer OTHER, SELFPAY | END 2025-04-25 12:05 | disposition home or self-care (01) | LOC: NFLDREF 04-27 10:49 | PROVIDERS: PCP Physician Assistant Medical; Referring Provider Physician Assistant Medical; Visit Provider Physician Assistant Medical | DX: L98.9 Disorder of the skin and subcutaneous tissue, unspecified (principal); E78.2 Mixed hyperlipidemia | CPT/HCPCS: 80053; 80061; 84443 ==

== ENCOUNTER 2025-05-10 14:50 | Outpatient (CLI) | payer OTHER, SELFPAY ==
--- NOTE | 2025-05-10 15:30 | CRLHL7_ITS ---
For Patients: As a result of the Century Cures Act, medical imaging exams and procedure reports are released immediately into your electronic medical record. You may view this report before your referring provider. If you have questions, please contact your health care provider. XR DXA Bone Mineral Density (BMD) Reason for exam: Asymptomatic menopausal state. Current height (inches): 67.0 Weight (lbs.): 129.0 Menopause age: 30 Ethnicity: White 1. Have you had a previous hip or vertebral fracture? No. 2. Have you had any fractures during your adult life which did not result from significant trauma (e.g., auto accident)? No. 3. Did either of your parents have a hip fracture? No. 4. Do you smoke? No. 5. Have you ever taken Glucocorticoids? No. 6. Do you have rheumatoid arthritis? No. 7. Do you have secondary osteoporosis? No. 8. Do you drink 3 or more alcoholic drinks per day? No. 9. Are you being treated for osteoporosis? No. 10. Have you ever taken any of the following medications: Actonel, Evista, Fosamax, Miacalcin, Reclast, Boniva, Forteo, HRT (i.e., estrogen/hormone therapy), Protelos, Prolia, Vitamin D, Calcium, other ??? please specify. ANSWER: Yes; vitamin D and calcium. 11. Do you have any of the following medical conditions: Anorexia or bulimia, asthma or emphysema, end stage renal disease, hyperparathyroidism, any seizure disorders, cancer, inflammatory bowel diseases, hysterectomy, other ??? please specify. ANSWER: Yes; hysterectomy. 12. What was your maximum height (inches)? 67. 13. Do you perform weightbearing exercise regularly? No. 14. Do you regularly consume dairy products? Yes. 15. Do you drink caffeinated beverages? Yes. 16. At what age did your period start? 12. 17. Are you premenopausal? No. 18. How many full-term pregnancies have you had? 3. 19. Have you ever missed your period for more than 6 months in a row (not including or menopause)? No. TECHNIQUE: Bone mineral density study was performed using the [employer]. The right hip was not scanned due to total hip replacement. FINDINGS: The results of the study expressed as bone mineral density (BMD) are as follows: Lumbar Spine L1 to L4: BMD: 1.245 g/cm2. T-score: 1.8. Z-score: 4.7. Left Neck: BMD: 0.636 g/cm2. T-score: -1.9. Z-score: 0.6. Left Total Hip: BMD: 0.851 g/cm2. T-score: -0.7. Z-score: 1.6. IMPRESSION: Osteopenia. FRAX 10-year Fracture Risk Major Osteoporotic Fracture: 13% Hip Fracture: 4.2% Reported Risk Factors: [place] () Neck BMD = 0.636, BMI = 20.2. VÍCTOR TERAN M.D. Diagnostic Radiologist [email or web address] Transcribed: 2:[address]/Dictated by: Víctor Teran MD @ 05/11/2025 8:09:00 AM (Electronically Signed)
== END 2025-05-10 14:51 | disposition home or self-care (01) ==
LOC: RAD 14:51
PROVIDERS: PCP Physician Assistant Medical; Visit Provider Physician Assistant Medical
DX: Z13.820 Encounter for screening for osteoporosis (principal); Z78.0 Asymptomatic menopausal state
CPT/HCPCS: 77080